=== PATIENT | female | born 1985 | race Caucasian/White ===

== ENCOUNTER 2017-02-01 08:49 | Emergency (ER) | payer MEDICAID ==
[~2017-02-01] VITALS: Ht 157.5 cm; Wt 107.0 kg
[2017-02-01 08:50] VITALS: BP 133/90
[2017-02-01] MEDS ORDERED: ALBU17IN INH (09:23)
[2017-02-01] MEDS ORDERED: CLAR10TA13 PO (09:24)
[2017-02-01] MEDS ORDERED: IBUP80TA PO (09:25)
[2017-02-01] MEDS ORDERED: MUCI600T34 PO (09:25)
== END 2017-02-01 09:45 | disposition home or self-care (01) ==
LOC: M ED 09:33
DX: J06.9 Acute upper respiratory infection, unspecified (principal)

== ENCOUNTER 2017-04-22 21:08 | Emergency (ER) | payer MEDICAID ==
[~2017-04-22] VITALS: Ht 157.5 cm; Wt 104.3 kg
[~2017-04-22 21:08] MED LIST: ALBU17IN INH; CLAR10TA13 PO; IBUP80TA PO; MUCI600T34 PO
[2017-04-22] MEDS ORDERED: KETOROLAC 30 MG/ML VIAL (J1885) IV ONE (22:45)
[2017-04-22 23:43] LABS: BASO # 0.1 K/mm3 (0.0-0.2); BASO % 0.9 % (0.0-1.0); EOS # 0.2 K/mm3 (0.0-0.50); EOS % 1.5 % (0.0-3.0); LARGE UNSTAINED CELL # 0.2 K/mm3 (0.0-0.4); LARGE UNSTAINED CELL % 1.6 % (0.0-4.0); LYMPH % 20.4 % (24.0-44.0); MEAN CORPUSCULAR HEMOGLOBIN 27.7 pg (27.0-33.0); MEAN CORPUSCULAR HGB CONC 33.5 g/dl (32.0-36.5); MEAN CORPUSCULAR VOLUME 82.5 fl (80.0-96.0); MONO # 0.8 K/mm3 (0.0-0.8); MONO % 6.1 % (0.0-5.0); NEUTROPHILS # 9.4 K/mm3 (1.8-7.7); NEUTROPHILS % 69.5 % (36.0-66.0); PLATELET COUNT, AUTOMATED 235 k/mm3 (150-450); RED CELL DISTRIBUTION WIDTH 13.9 % (11.5-14.5); WHITE BLOOD COUNT 13.5 K/mm3 (4.0-10.0)
[2017-04-23 01:03] LABS: CONTROL LINE HCG INT CTR LINE PRESENT
[2017-04-23 01:06] LABS: ANION GAP 7 MEQ/L (8-16); BLOOD UREA NITROGEN 14 MG/DL (7-18); CALCIUM LEVEL 8.7 MG/DL (8.5-10.1); CARBON DIOXIDE LEVEL 28 MEQ/L (21-32); CHLORIDE LEVEL 107 MEQ/L (98-107); CREATININE FOR GFR 0.65 MG/DL (0.55-1.02); GLOMERULAR FILTRATION RATE > 60.0 (>60); GLUCOSE, FASTING 112 MG/DL (70-105); POTASSIUM SERUM 4.4 MEQ/L (3.5-5.1); SODIUM LEVEL 142 MEQ/L (136-145)
[2017-04-23] MEDS ORDERED: ISOVUE-370 76% 100ML VIAL (Q9967) As Ordered ONE (01:30)
--- NOTE | 2017-04-23 02:20 | REPUSA ---
CLINICAL HISTORY: Pain, exclude PE. TECHNIQUE: Multiple incremental axial, coronal and oblique images are obtained from the thoracic inle t to the upper abdomen. Intravenous contrast material was administered as per pulmonary embolism prot ocol. COMMENTS: There is excellent opacification of pulmonary arterial system without evidence for pulmonary embolism . Aorta is of normal caliber without evidence for dissection or aneurysm. There is no evidence of pleural or parenchymal mass. There are no pleural effusions. There is no evid ence of hilar or mediastinal lymphadenopathy. The heart and great vessels are within normal limits. Images of the upper abdomen demonstrate no evidence of adrenal mass. The bony structures are free of lytic or blastic lesions. 8mm left thyroid nodule. Prior cholecystectomy. IMPRESSION: No evidence for pulmonary embolism. Thank you for your kind referral of this patient.
[2017-04-23] MEDS ORDERED: KETO10TAB PO (03:22)
[2017-04-23 03:49] VITALS: BP 126/74
== END 2017-04-23 03:46 | disposition home or self-care (01) ==
LOC: M ED 22:57
DX: M54.6 Pain in thoracic spine (principal); F17.200 Nicotine dependence, unspecified, uncomplicated; Z88.1 Allergy status to other antibiotic agents; Z88.0 Allergy status to penicillin; Z88.8 Allergy status to other drugs, medicaments and biological substances
CPT/HCPCS: 71275; 80048; 84703; 85025; 96374; 99283; J1885; Q9967

== ENCOUNTER 2017-12-02 15:50 | Emergency (ER) | payer MEDICAID ==
[2017-12-02] MEDS: KETOROLAC 60 MG/2 ML VIAL (J1885) IM (17:54)
== END 2017-12-02 18:08 | disposition home or self-care (01) ==
LOC: M ED 15:50
DX: R51 Headache (principal); Z98.890 Other specified postprocedural states; Z88.0 Allergy status to penicillin; Z88.8 Allergy status to other drugs, medicaments and biological substances
CPT/HCPCS: J1885

== ENCOUNTER → 2017-12-15 | Outpatient (CLI) | payer MEDICAID ==
[2017-12-15 10:17] LABS: ANION GAP 7 MEQ/L (8-16); BLOOD UREA NITROGEN 9 MG/DL (7-18); CALCIUM LEVEL 9.4 MG/DL (8.5-10.1); CARBON DIOXIDE LEVEL 29 MEQ/L (21-32); CHLORIDE LEVEL 106 MEQ/L (98-107); CREATININE FOR GFR 0.67 MG/DL (0.55-1.30); GLOMERULAR FILTRATION RATE > 60.0 (>60); GLUCOSE, FASTING 99 MG/DL (70-100); POTASSIUM SERUM 3.9 MEQ/L (3.5-5.1); SODIUM LEVEL 142 MEQ/L (136-145)
[2017-12-16 14:47] LABS: HEPATITIS B SURFACE ANTIBODY NEGATIVE (POSITIVE)
== END ==
LOC: M LAB 09:09
DX: Z00.00 Encounter for general adult medical examination without abnormal findings (principal); R10.9 Unspecified abdominal pain
CPT/HCPCS: 86706

== ENCOUNTER → 2018-01-13 | Outpatient (CLI) | payer MEDICAID ==
[~2018-01-13] MED LIST changes: -ALBU17IN INH; -CLAR10TA13 PO; +GASTROGRAFIN SOLUTION 30ML (Q9963) As Ordered; -IBUP80TA PO; +ISOVUE-370 76% 100ML VIAL (Q9967) As Ordered; -MUCI600T34 PO
== END ==
LOC: M RAD 14:01
DX: R93.5 Abnormal findings on diagnostic imaging of other abdominal regions, including retroperitoneum (principal); K42.9 Umbilical hernia without obstruction or gangrene
CPT/HCPCS: Q9963

== ENCOUNTER → 2018-01-18 | Outpatient (REF) | payer MEDICAID ==
[2018-01-18 12:16] LABS: AMORPHOUS SEDIMENT MODERATE (NEGATIVE); APPEARANCE, URINE CLOUDY (CLEAR); BACTERIA, URINE AUTO 1+ (NEGATIVE); BILIRUBIN, URINE AUTO NEGATIVE (NEGATIVE); BLOOD, URINE BLOOD NEGATIVE (NEGATIVE); COLOR, URINE YELLOW (YELLOW); GLUCOSE, URINE (UA) AUTO NEGATIVE (NEGATIVE); KETONE, URINE AUTO NEGATIVE (NEGATIVE); LEUKOCYTE ESTERASE, URINE AUTO 3+ (NEGATIVE); MUCUS, URINE SMALL (NEGATIVE); NITRITE, URINE AUTO NEGATIVE (NEGATIVE); PROTEIN, URINE AUTO NEGATIVE (NEGATIVE); RBC, URINE AUTO 1 /HPF (0-3); SQUAMOUS EPITHELIAL CELL UR AU 27 /HPF (0-6); TRANSITIONAL EPITHELIAL AUTO 1 /HPF; UROBILINOGEN, URINE AUTO 0.2 mg/dL (0.0-2.0); WBC, URINE AUTO 5 /HPF (0-3)
== END ==
LOC: M LAB REF 11:23
DX: R35.8 Other polyuria (principal)

== ENCOUNTER → 2018-01-25 | Outpatient (CLI) | payer MEDICAID | LOC: M RAD 11:11 | DX: E04.1 Nontoxic single thyroid nodule (principal) | CPT/HCPCS: 76536 ==

== ENCOUNTER 2018-02-07 12:41 | Emergency (ER) | payer MEDICAID ==
[2018-02-07 16:11] LABS: KETONE, URINE AUTO RFX NEGATIVE (NEGATIVE); LEUKOCYTE ESTERASE UR AUTO RFX 1+ (NEGATIVE); MUCUS, URINE RFX LARGE (NEGATIVE); NITRITE, URINE AUTO RFX NEGATIVE (NEGATIVE); RBC, URINE AUTO RFX 3 /HPF (0-3); SPECIFIC GRAVITY UR AUTO RFX 1.024 (1.002-1.035); SQUAM EPITHELIAL CELL UR AURFX 21 /HPF (0-6); WBC, URINE AUTO RFX 23 /HPF (0-3)
[2018-02-07] MEDS: NS 1,000 ML IV (16:32)
[2018-02-07] MEDS: ONDANSETRON 4MG/2ML VIAL (J2405) IV (16:32)
[2018-02-07] MEDS: MORPHINE 4 MG/ML 1ML VIAL (J2270) IV ×2 (16:32→17:20)
[2018-02-07 16:34] LABS: BASO # 0.1 10^3/uL (0.0-0.2); BASO % 0.6 % (0.0-1.0); EOS # 0.1 10^3/uL (0.0-0.50); EOS % 0.7 % (0.0-3.0); HEMATOCRIT 39.2 % (36.0-47.0); HEMOGLOBIN 12.5 g/dl (12.0-16.0); IMMATURE GRANULOCYTE % 0.2 % (0-3.0); LYMPH # 2.3 10^3/uL (1.5-4.5); LYMPH % 24.5 % (24.0-44.0); MEAN CORPUSCULAR HEMOGLOBIN 26.3 pg (27.0-33.0); MEAN CORPUSCULAR HGB CONC 31.9 g/dl (32.0-36.5); MEAN CORPUSCULAR VOLUME 82.5 fl (80.0-96.0); MONO # 0.5 10^3/uL (0.0-0.8); MONO % 5.2 % (0.0-5.0); NEUTROPHILS # 6.6 10^3/uL (1.8-7.7); NEUTROPHILS % 68.8 % (36.0-66.0); PLATELET COUNT, AUTOMATED 281 10^3/uL (150-450); RED BLOOD COUNT 4.75 10^6/uL (4.00-5.40); RED CELL DISTRIBUTION WIDTH 13.2 % (11.5-14.5); WHITE BLOOD COUNT 9.6 10^3/uL (4.0-10.0)
[2018-02-07 17:01] LABS: ALBUMIN 3.8 GM/DL (3.2-5.2); ALBUMIN/GLOBULIN RATIO 1.09 (1.00-1.93); ALKALINE PHOSPHATASE 74 U/L (45-117); ALT/SGPT 23 U/L (12-78); ANION GAP 7 MEQ/L (8-16); AST/SGOT 15 U/L (7-37); BILIRUBIN,DIRECT 0.1 MG/DL (0.0-0.2); BILIRUBIN,TOTAL 0.5 MG/DL (0.2-1.0); BLOOD UREA NITROGEN 8 MG/DL (7-18); CALCIUM LEVEL 8.7 MG/DL (8.5-10.1); CARBON DIOXIDE LEVEL 29 MEQ/L (21-32); CHLORIDE LEVEL 106 MEQ/L (98-107); CREATININE FOR GFR 0.55 MG/DL (0.55-1.30); GLOMERULAR FILTRATION RATE > 60.0 (>60); GLUCOSE, FASTING 83 MG/DL (70-100); LIPASE 109 U/L (73-393); SODIUM LEVEL 142 MEQ/L (136-145); TOTAL PROTEIN 7.3 GM/DL (6.4-8.2)
[2018-02-07] MEDS ORDERED: ISOVUE-370 76% 100ML VIAL (Q9967) As Ordered (17:09)
== END 2018-02-07 18:31 | disposition home or self-care (01) ==
LOC: M ED 12:41
DX: K21.9 Gastro-esophageal reflux disease without esophagitis (principal); K58.9 Irritable bowel syndrome, unspecified; N83.201 Unspecified ovarian cyst, right side; N39.0 Urinary tract infection, site not specified; Z88.0 Allergy status to penicillin; Z87.891 Personal history of nicotine dependence
CPT/HCPCS: J2270

== ENCOUNTER → 2018-02-07 | Outpatient (CLI) | payer MEDICAID ==
[2018-02-07 13:18] LABS: BASO # 0.1 10^3/uL (0.0-0.2); EOS # 0.1 10^3/uL (0.0-0.50); EOS % 1.2 % (0.0-3.0); HEMATOCRIT 39.4 % (36.0-47.0); HEMOGLOBIN 12.6 g/dl (12.0-16.0); IMMATURE GRANULOCYTE % 0.2 % (0-3.0); LYMPH # 2.1 10^3/uL (1.5-4.5); LYMPH % 25.1 % (24.0-44.0); MEAN CORPUSCULAR HEMOGLOBIN 26.3 pg (27.0-33.0); MEAN CORPUSCULAR VOLUME 82.3 fl (80.0-96.0); MONO # 0.5 10^3/uL (0.0-0.8); MONO % 5.7 % (0.0-5.0); NEUTROPHILS # 5.5 10^3/uL (1.8-7.7); NEUTROPHILS % 66.8 % (36.0-66.0); PLATELET COUNT, AUTOMATED 317 10^3/uL (150-450); RED BLOOD COUNT 4.79 10^6/uL (4.00-5.40); RED CELL DISTRIBUTION WIDTH 13.2 % (11.5-14.5); WHITE BLOOD COUNT 8.3 10^3/uL (4.0-10.0)
[2018-02-07 13:39] LABS: ALBUMIN 3.7 GM/DL (3.2-5.2); ALKALINE PHOSPHATASE 77 U/L (45-117); ALT/SGPT 18 U/L (12-78); ANION GAP 7 MEQ/L (8-16); AST/SGOT 17 U/L (7-37); BILIRUBIN,TOTAL 0.4 MG/DL (0.2-1.0); BLOOD UREA NITROGEN 8 MG/DL (7-18); CALCIUM LEVEL 8.9 MG/DL (8.5-10.1); CARBON DIOXIDE LEVEL 29 MEQ/L (21-32); CHLORIDE LEVEL 106 MEQ/L (98-107); CREATININE FOR GFR 0.57 MG/DL (0.55-1.30); GLOMERULAR FILTRATION RATE > 60.0 (>60); GLUCOSE, FASTING 90 MG/DL (70-100); LIPASE 108 U/L (73-393); POTASSIUM SERUM 4.2 MEQ/L (3.5-5.1); SODIUM LEVEL 142 MEQ/L (136-145); TOTAL PROTEIN 7.4 GM/DL (6.4-8.2)
== END ==
LOC: M LAB 12:18
DX: R10.13 Epigastric pain (principal)
CPT/HCPCS: 83690

== ENCOUNTER → 2018-02-15 | Outpatient (REF) | payer MEDICAID ==
[2018-02-20 08:06] LABS: H PYLORI STOOL ANTIGEN Negative (Negative)
== END ==
LOC: M LAB REF 10:30
DX: K58.0 Irritable bowel syndrome with diarrhea (principal)

== ENCOUNTER → 2018-04-27 | Outpatient (CLI) | payer MEDICAID ==
[2018-04-27 12:57] LABS: FREE T4 1.16 NG/DL (0.76-1.46); THYROID STIMULATING HORMONE 0.544 uIU/ML (0.358-3.740)
[2018-04-29 14:10] LABS: TISSUE TRANSGLUTAMINASE IgA <2 U/mL (0-3)
== END ==
LOC: M LAB 11:48
DX: R11.0 Nausea (principal)
CPT/HCPCS: 84443

== ENCOUNTER → 2018-04-28 | Outpatient (CLI) | payer MEDICAID | LOC: M RAD 13:16 | DX: N85.8 Other specified noninflammatory disorders of uterus (principal); R10.2 Pelvic and perineal pain | CPT/HCPCS: 76856 ==

== ENCOUNTER 2018-05-01 08:11 | Day surgery (SDC) | payer MEDICAID ==
[2018-05-01] MEDS ORDERED: NS 1,000 ML IV (09:30)
== END 2018-05-01 11:12 | disposition home or self-care (01) ==
LOC: M OPP 08:11
DX: K58.0 Irritable bowel syndrome with diarrhea (principal); R11.0 Nausea; K21.9 Gastro-esophageal reflux disease without esophagitis; Z79.899 Other long term (current) drug therapy; Z88.8 Allergy status to other drugs, medicaments and biological substances; J30.89 Other allergic rhinitis; Z87.891 Personal history of nicotine dependence; Z83.3 Family history of diabetes mellitus; Z82.49 Family history of ischemic heart disease and other diseases of the circulatory system
CPT/HCPCS: 45378

== ENCOUNTER 2018-06-01 12:36 | Emergency (ER) | payer MEDICAID | END 2018-06-01 15:09 | disposition home or self-care (01) | LOC: M ED 12:36 | DX: B07.0 Plantar wart (principal); Z79.899 Other long term (current) drug therapy; Z88.0 Allergy status to penicillin; Z88.8 Allergy status to other drugs, medicaments and biological substances; Z91.018 Allergy to other foods | CPT/HCPCS: 99283 ==

== ENCOUNTER 2018-06-09 07:16 | Day surgery (SDC) | payer MEDICAID ==
[2018-06-09 07:31] LABS: HEMATOCRIT 38.1 % (36.0-47.0); HEMOGLOBIN 12.4 g/dl (12.0-15.5); MEAN CORPUSCULAR HEMOGLOBIN 25.9 pg (27.0-33.0); MEAN CORPUSCULAR HGB CONC 32.5 g/dl (32.0-36.5); MEAN CORPUSCULAR VOLUME 79.7 fl (80.0-96.0); PLATELET COUNT, AUTOMATED 267 10^3/uL (150-450); RED BLOOD COUNT 4.78 10^6/uL (4.00-5.40); RED CELL DISTRIBUTION WIDTH 13.4 % (11.5-14.5); WHITE BLOOD COUNT 10.4 10^3/uL (4.0-10.0)
[2018-06-09 07:47] LABS: CONTROL LINE HCG INT CTR LINE PRESENT; HCG, SERUM QUALITATIVE NEGATIVE (NEGATIVE)
[2018-06-09] MEDS ORDERED: PROPOFOL 200 MG/20 ML VIAL As Ordered ×2 (08:10)
[2018-06-09] MEDS ORDERED: LIDOCAINE 2% INJ 100 MG/5 ML SDV (FOR ANES.) As Ordered ×2 (08:10)
[2018-06-09] MEDS: BUPIVACAINE HCL 0.25% 30 ML VIAL As Ordered ×2 (08:10)
[2018-06-09] MEDS ORDERED: fentaNYL 250 MCG/5 ML INJECTION (J3010) As Ordered ×2 (08:10)
[2018-06-09] MEDS ORDERED: ROCURONIUM BROMIDE 50 MG/5 ML VIAL As Ordered ×2 (08:10)
[2018-06-09] MEDS: SILVER NITRATE APPLICATOR As Ordered ×2 (08:10)
[2018-06-09] MEDS ORDERED: MIDAZOLAM INJ 2 MG/2 ML VIAL (J2250) As Ordered ×2 (08:11)
[2018-06-09] MEDS: LR 1,000 ML IV ×2 (08:12)
[2018-06-09] MEDS ORDERED: dexameTHASONE 4 MG/ML 1ML VIAL (J1100) As Ordered ×6 (08:46→10:57)
[2018-06-09] MEDS ORDERED: ONDANSETRON 4MG/2ML VIAL (J2405) As Ordered ×2 (09:01)
[2018-06-09] MEDS ORDERED: KETOROLAC 60 MG/2 ML VIAL (J1885) As Ordered ×2 (09:02)
[2018-06-09] MEDS ORDERED: GLYCOPYRROLATE INJ 0.2 MG/ML 2 ML VIAL As Ordered ×2 (09:08)
[2018-06-09] MEDS ORDERED: NEOSTIGMINE 10 MG/10 ML VIAL (J2710) As Ordered ×4 (09:08→09:09)
[2018-06-09] MEDS ORDERED: fentaNYL 100 MCG/2 ML INJECTION (J3010) As Ordered ×4 (10:17→10:27)
[2018-06-09] MEDS: fentaNYL 100 MCG/2 ML INJECTION (J3010) IV ×8 (10:27→10:51)
[2018-06-09] MEDS: PERCOCET 5MG/325MG TAB PO ×4 (10:40→12:13)
[2018-06-09] MEDS ORDERED: ONDANSETRON 4MG/2ML VIAL (J2405) IV ×2 (10:45)
[2018-06-09] MEDS ORDERED: LR 1,000 ML IV ×4 (10:45)
[2018-06-09] MEDS: MORPHINE 10 MG/ML 1ML VIAL (J2270) IV ×10 (11:00→11:20)
[2018-06-09] MEDS ORDERED: PERCOCET 5MG/325MG TAB As Ordered ×2 (12:11)
== END 2018-06-09 14:50 | disposition home or self-care (01) ==
LOC: M SDC 07:16
DX: N83.201 Unspecified ovarian cyst, right side (principal); K21.9 Gastro-esophageal reflux disease without esophagitis; K58.9 Irritable bowel syndrome, unspecified; Z79.899 Other long term (current) drug therapy; Z88.0 Allergy status to penicillin; Z88.8 Allergy status to other drugs, medicaments and biological substances
CPT/HCPCS: 58661

== ENCOUNTER → 2018-08-15 | Outpatient (CLI) | payer MEDICAID ==
[~2018-08-15] MED LIST changes: +E-Z-GAS II EFFERVESCENT PACKET (SODIUM BICARB./CITRIC ACID/SIMETHICONE) As Ordered; +E-Z-HD 98% w/w 340GM SUSP BTL As Ordered; +E-Z-PAQUE 96% w/w SUSP 176GM BTL As Ordered; -GASTROGRAFIN SOLUTION 30ML (Q9963) As Ordered; -ISOVUE-370 76% 100ML VIAL (Q9967) As Ordered
== END ==
LOC: M RAD 16:00
DX: M25.512 Pain in left shoulder (principal)
CPT/HCPCS: 72040

== ENCOUNTER 2018-10-04 21:52 | Emergency (ER) | payer MEDICAID ==
[2018-10-04] MEDS: DERMABOND TOPICAL SKIN ADHESIVE TOP (22:44)
[2018-10-04] MEDS: ADACEL/BOOSTRIX VACCINE (DIPHTH/PERTUSS/ACELL/TETANUS)0.5ML SYR (90715) IM (22:44)
== END 2018-10-04 23:18 | disposition home or self-care (01) ==
LOC: M ED 21:52
DX: S61.210A Laceration without foreign body of right index finger without damage to nail, initial encounter (principal); W26.8XXA Contact with other sharp object(s), not elsewhere classified, initial encounter; Y92.099 Unspecified place in other non-institutional residence as the place of occurrence of the external cause; Y93.G1 Activity, food preparation and clean up; Y99.9 Unspecified external cause status; K21.9 Gastro-esophageal reflux disease without esophagitis; K58.9 Irritable bowel syndrome, unspecified; Z88.0 Allergy status to penicillin; Z91.018 Allergy to other foods
CPT/HCPCS: 90715

== ENCOUNTER 2019-12-18 08:36 | Emergency (ER) | payer MEDICAID ==
[~2019-12-18] VITALS: Ht 157.5 cm; Wt 108.5 kg
[~2019-12-18 08:36] MED LIST changes: +ALBU17IN INH; +CIPR-249 PO; +CLAR1TAB13 PO; +COLA100C5 PO; +DICY20TA11; -E-Z-GAS II EFFERVESCENT PACKET (SODIUM BICARB./CITRIC ACID/SIMETHICONE) As Ordered; -E-Z-HD 98% w/w 340GM SUSP BTL As Ordered; -E-Z-PAQUE 96% w/w SUSP 176GM BTL As Ordered; +HYOS1TAB PO; +IBUP80TA PO; +KETO10TAB PO; +MUCI600T37 PO; +OMEP40CA97 PO; +PERCOCET PO
[2019-12-18] MEDS ORDERED: IBUPROFEN 800 MG TAB PO ONE (09:30)
[2019-12-18 09:33] LABS: INFLUENZA A AMPLIFICATION NEGATIVE (NEGATIVE); INFLUENZA B AMPLIFICATION POSITIVE (NEGATIVE)
[2019-12-18 10:49] VITALS: BP 129/74
== END 2019-12-18 10:52 | disposition home or self-care (01) ==
LOC: M ED 08:36
DX: J10.1 Influenza due to other identified influenza virus with other respiratory manifestations (principal); Z88.0 Allergy status to penicillin; Z88.8 Allergy status to other drugs, medicaments and biological substances; Z91.018 Allergy to other foods

== ENCOUNTER 2020-10-07 15:37 | Emergency (ER) | payer MEDICAID ==
[~2020-10-07] VITALS: Ht 157.5 cm; Wt 102.0 kg
[2020-10-07 15:38] VITALS: BP 152/95
== END 2020-10-07 16:45 | disposition home or self-care (01) ==
LOC: M ED 15:37
DX: Z20.828 Contact with and (suspected) exposure to other viral communicable diseases (principal); K21.9 Gastro-esophageal reflux disease without esophagitis; Z88.0 Allergy status to penicillin; Z88.1 Allergy status to other antibiotic agents; Z88.8 Allergy status to other drugs, medicaments and biological substances; Z91.011 Allergy to milk products
CPT/HCPCS: 99282; U0003

== ENCOUNTER 2021-06-24 18:20 | Emergency (ER) | payer MEDICAID ==
[~2021-06-24] VITALS: Ht 157.5 cm; Wt 99.6 kg
[~2021-06-24 18:20] MED LIST changes: +OMEP40CA4 PO; -OMEP40CA97 PO
[2021-06-24] MEDS ORDERED: LIDOCAINE 5% (LIDODERM) PATCH TD ONE (20:35)
[2021-06-24] MEDS ORDERED: NAPROXEN 250 MG TAB PO ONE (20:35)
[2021-06-24] MEDS ORDERED: methocarbamoL 750 MG TAB PO ONE (20:35)
[2021-06-24] MEDS ORDERED: **NOTE PATIENT COMMENT** MISC XX SCH (21:00)
[2021-06-24] MEDS ORDERED: NABU-71 PO (21:48)
[2021-06-24 21:55] LABS: BASO # 0.1 10^3/uL (0.0-0.2); BASO % 0.9 % (0.0-1.0); EOS # 0.2 10^3/uL (0.0-0.5); EOS % 1.5 % (0.0-3.0); HEMATOCRIT 42.2 % (36.0-47.0); HEMOGLOBIN 13.3 g/dl (12.0-15.5); LYMPH # 2.6 10^3/uL (1.5-5.0); LYMPH % 24.9 % (24.0-44.0); MEAN CORPUSCULAR HEMOGLOBIN 26.3 pg (27.0-33.0); MEAN CORPUSCULAR HGB CONC 31.5 g/dl (32.0-36.5); MEAN CORPUSCULAR VOLUME 83.6 fl (80.0-96.0); MONO # 0.7 10^3/uL (0.0-0.8); NEUTROPHILS # 6.7 10^3/uL (1.5-8.5); NEUTROPHILS % 65.4 % (36.0-66.0); PLATELET COUNT, AUTOMATED 296 10^3/uL (150-450); RED BLOOD COUNT 5.05 10^6/uL (4.00-5.40); WHITE BLOOD COUNT 10.3 10^3/uL (4.0-10.0)
[2021-06-25] MEDS ORDERED: METH-1165 PO (00:33)
[2021-06-25] MEDS ORDERED: ASPE4PAD TOP (00:33)
[2021-06-25] MEDS ORDERED: CIPR-249 PO (00:33)
[2021-06-25] MEDS ORDERED: CIPROFLOXACIN 500MG TABLET PO ONE (00:40)
[2021-06-25 01:09] VITALS: BP 128/72
--- NOTE | 2021-06-25 09:20 | REP ---
INDICATION: R flank pain, Ca oxalate in urine. Repeat dictation. Preliminary report is provided at the time of the exam by kory AREVALO. COMPARISON: Comparison CT study abdomen pelvis February 07, 2018.. TECHNIQUE: Urinary tract sonography. FINDINGS: Scanning at the level of the urinary bladder shows no abnormality. Renal cortical echogenicity pattern is normal bilaterally and contours are smooth. There is no evidence of hydronephrosis, cyst, mass, or calculus in either kidney. The right kidney measures 11.5 x 6.5 x 5.9 cm. Left renal dimensions are 12.0 x 4.6 x 5.7 cm. IMPRESSION: Normal urinary tract sonography. <Electronically signed by Hector Louie > 06/25/21 0916
== END 2021-06-25 01:12 | disposition home or self-care (01) ==
LOC: M ED 18:20
DX: M54.6 Pain in thoracic spine (principal); N39.0 Urinary tract infection, site not specified; K21.9 Gastro-esophageal reflux disease without esophagitis; Z88.0 Allergy status to penicillin; Z88.8 Allergy status to other drugs, medicaments and biological substances; Z91.018 Allergy to other foods; F17.210 Nicotine dependence, cigarettes, uncomplicated

== ENCOUNTER → 2021-08-06 | Outpatient (REF) | payer MEDICAID ==
[~2021-08-06] MED LIST changes: +ASPE4PAD TOP; +METH-1165 PO; +NABU-71 PO
== END ==
LOC: M LAB REF 16:25
PROVIDERS: ATTEND Surgery
DX: L72.11 Pilar cyst (principal)

== ENCOUNTER 2021-09-01 21:34 | Emergency (ER) | payer MEDICAID ==
[~2021-09-01] VITALS: Ht 157.5 cm; Wt 103.3 kg
--- OUTSIDE RECORDS SUMMARY | 2021-09-01 21:39 | CCD ---
Author Organization Unknown Address [address] [place] [address] Phone [phone] Care Team Providers Care Recovery Analyst Name Role Phone [facility] 2 [phone] Allergies Code Code System Name Reaction Severity Status Onset Penicillin v Potassium Active 08/26/2014 Notes: BLUE CHEESE - Reaction: throat c losing Medications Name Status Start Date Stop Date Blue-Emu Lidocaine Patch 4 % topical Active Not available Cipro 500 mg tablet Take 1 tablet every 12 hours by oral route for 7 days. Completed 08/14/2021 fluconazole 150 mg tablet TAKE ONE TABLET BY MOUTH ONCE Completed methocarbamol 750 mg tablet Take 1 tablet 3 times a day by oral route. Completed 08/14/2021 nabumetone 500 mg tablet Take 2 tablets every day by oral route for 21 days. Completed 08/14/2021 Vitamin D3 50 mcg (2,000 unit) capsule Take 1 capsule every day by oral route for 90 days. Active Not available Notes: tylenol and ibuprofen as needed Problems Name Status Onset Date Source Obesity Active 08/26/2014 History Nausea Unknown 08/26/2014 History On Examination - Gallbladder Unknown 08/29/2014 His tory Acquired Absence of Multiple Teeth Active 09/02/2014 History Influenza Vaccine Needed Unknown 10/22/2014 History Abdominal Pain Unknown 10/28/2014 History Non-toxic Uninodular Goiter Active 02/11/2016 Hist ory Procedure by Method Unknown 02/11/[address] Concept Unknown 02/11/2016 History Generalized Anxiety Disorder Active 03/10/2016 His tory Depressive Disorder Active 03/10/2016 History Migraine Active 12/13/2017 History Finding of Body Mass Index Active 12/13/2017 Histo ry Nicotine Dependence Unknown 01/11/2018 History Atypical Squamous Cells of Undetermined Significance on Cervical Papanicolaou Smear Active 01/11/2018 History Myopia Active 01/11/2018 History Clinical Finding Unknown 01/18/2018 History Acute Serous Otitis Media of Bilateral Ears Unknown 05/2018 History Epigastric Pain Unknown 02/07/2018 History Irritable Bowel Syndrome with Diarrhea Active 8 History Cyst of Ovary Unknown 02/10/2018 History Pain of Left Shoulder Joint Unknown 08/15/2018 Hist ory Multiple Skin Tags Active 07/06/2021 Pilar Cyst of Scalp Active 07/06/2021 Low Back Pain Active 07/06/2021 Adult Health Examination Unknown 07/06/2021 Tobacco Dependence Caused by Cigarettes Unknown 07/06/20 21 Procedures Notes: tubal ligation 2011, Cholecystect lew 10/09/14, Biopsy on thyroid nodule, gullbladder (2014), Laproscopic surgery behind uterus (2017) Results Lab Results Date Name Specimen Result Interpretation Description Value Range Status Address 07/27/2021 Iron + TIBC + Ferritin, Serum Blood venous Normal Iron, Total 47 mcg/dL 40-190 mcg/dL Final [facility]: [address] [facility] Blood venous Normal Iron Binding Capacity 41 4 mcg/dL (calc) 250-450 mcg/dL (calc) Final [facility]: [address] [facility] Blood venous Low % Saturation 11 % (calc) 16-4 5 % (calc) Final [facility]: [address] [facility] Blood venous Low Ferritin 15 NG/mL 16-154 NG/m L Final [facility]: [address] [facility] 07/27/2021 Lipid Panel, Serum Blood venous Normal [place] sterol, Total 156 mg/dL <200 mg/dL Final [facility]: [address] [facility] Blood venous Normal HDL Cholesterol 56 mg/dL > or = 50 mg/dL Final [facility]: [address] [facility] Blood venous Normal Triglycerides 67 mg/dL <150 m g/dL Final [facility]: [address] [facility] Blood venous Normal LDL-cholesterol 85 mg/dL (donna c) Final [facility]: [address] [facility] Blood venous Normal Chol/hdlc Ratio 2.8 (calc) <5 .0 (calc) Final [facility]: [address] [facility] Blood venous Normal Non HDL Cholesterol 100 mg/dL (calc) <130 mg/dL (calc) Final [facility]: [address] [facility] 07/27/2021 HIV 1+2 Ab + HIV1 P24 Ag, Quantitative Immunoassay, Serum Normal HIV Ag/Ab, 4TH Gen non-reactive non-reactive Final [facility]: [address] [facility] 07/27/2021 TSH + Free T4, Serum Blood venous Normal Tsh 0.51 m IU/L Final [facility]: [address] [facility] Blood venous Normal T4, Free 1.1 NG/dL 0.8-1.8 NG /dL [facility]: [address] [facility] 07/27/2021 CMP, Serum or Plasma Blood venous High Glucose 105 mg/dL 65-99 mg/dL Final [facility]: [address] [facility] Blood venous Normal Urea Nitrogen (BUN) 19 mg/dL 7-25 mg/dL [facility]: [address] [facility] Blood venous Normal Creatinine 0.65 mg/dL 0.50-1. 10 mg/dL [facility]: [address] [facility] Blood venous Normal eGFR Non-afr. Citizen Of [place] 1 15 mL/min/1.73m2 > or = 60 mL/min/1.73m2 Final [facility]: [address] [facility] Blood venous Normal eGFR 13 3 mL/min/1.73m2 > or = 60 mL/min/1.73m2 Final [facility]: [address] [facility] Blood venous BUN/creatinine Ratio not applicable (calc) 6-22 (calc) Final [facility]: [address] [facility] Blood venous Normal Sodium 139 mmol/L 135-146 mmo l/L Final [facility]: [address] [facility] Blood venous Normal Potassium 4.4 mmol/L 3.5-5.3 mmol/L Final [facility]: [address] [facility] Blood venous Normal Chloride 105 mmol/L 98-110 mm ol/L [facility]: [address] [facility] Blood venous Normal Carbon Dioxide 27 mmol/L 20-3 2 mmol/L [facility]: [address] [facility] Blood venous Normal Calcium 9.2 mg/dL 8.6-10.2 mg /dL [facility]: [address] [facility] Blood venous Normal Protein, Total 6.5 g/dL 6.1-8 .1 g/dL [facility]: [address] [facility] Blood venous Normal Albumin 4.0 g/dL 3.6-5.1 g/dL [facility]: [address] [facility] Blood venous Normal Globulin 2.5 g/dL (calc) 1.9- 3.7 g/dL (calc) [facility]: [address] [facility] Blood venous Normal Albumin/globulin Ratio 1 .6 (calc) 1.0-2.5 (calc) [facility]: [address] [facility] Blood venous Normal Bilirubin, Total 0.3 mg/dL 0. 2-1.2 mg/dL [facility]: [address] [facility] Blood venous Normal Alkaline Phosphatase 60 U/L 3 1-125 U/L [facility]: [address] [facility] Blood venous Normal Ast 14 U/L 10-30 U/L [facility]: [address] [facility] Blood venous Normal Alt 12 U/L 6-29 U/L Final [facility]: [address] [facility] 07/27/2021 Urinalysis Complete, Reflex Culture Urine [place] r tnp [facility]: [address] [facility] 07/27/2021 CBC W/ Auto Diff Blood venous Normal White B lood Cell Count 7.7 thousand/uL 3.8-10.8 thousand/uL [facility]: [address] [facility] Blood venous Normal Red Blood Cell Count 4.8 0 million/uL 3.80-5.10 million/uL [facility] [address] [facility] Blood venous Normal Hemoglobin 12.4 g/dL 11.7-15. 5 g/dL [facility]: [address] [facility] Blood venous Normal Hematocrit 39.4 % 35.0-45.0 % [facility]: [address] [facility] Blood venous Normal Mcv 82.1 fL 80.0-100.0 fL Fi nal [facility]: [address] [facility] Blood venous Low Mch 25.8 pg 27.0-33.0 pg Fin [facility]: [address] [facility] Blood venous Low Mchc 31.5 g/dL 32.0-36.0 g/dL [facility]: [address] [facility] Blood venous Normal Rdw 13.4 % 11.0-15.0 % [facility]: [address] [facility] Blood venous Normal Platelet Count 303 thous and/uL 140-400 thousand/uL [facility]: [address] [facility] Blood venous Normal Mpv 11.3 fL 7.5-12.5 fL Mayra l [facility]: [address] [facility] Blood venous Normal Absolute Neutrophils 526 7 cells/uL 4497-5934 cells/uL [facility]: [address] [facility] Blood venous Normal Absolute Lymphocytes 177 1 cells/uL 850-3900 cells/uL [facility]: [address] [facility] Blood venous Normal Absolute Monocytes 462 c ells/uL 200-950 cells/uL [facility]: [address] [facility] Blood venous Normal Absolute Eosinophils 123 cells/uL 15-500 cells/uL [facility]: [address] [facility] Blood venous Normal Absolute Basophils 77 ce lls/uL 0-200 cells/uL [facility]: [address] [facility] Blood venous Normal Neutrophils 68.4 % 38-80 % Fi [facility]: [address] [facility] Blood venous Normal Lymphocytes 23.0 % 15-49 % [facility]: [address] [facility] Blood venous Normal Monocytes 6.0 % 0-13 % [facility]: [address] [facility] Blood venous Normal Eosinophils 1.6 % 0-8 % Fin [facility]: [address] [facility] Blood venous Normal Basophils 1.0 % 0-2 % [facility]: [address] [facility] 07/27/2021 Vitamin B12 + Folate, Serum or Blood Blood venous Normal Vitamin B12 399 pg/mL 200-1100 pg/mL [facility]: [address], [place] Blood venous Normal Folate, Serum 8.8 NG/mL Final [facility]: [address], [place] 07/27/2021 Vitamin D, 25-Hydroxy, Total, Serum Blood venous Low Vitamin D,25-Oh,total,ia 17 NG/mL 30-100 NG/mL Final [facility]: [address] [place] 07/27/2021 HbA1C (Hemoglobin a1C), Blood Blood venous Normal Hemoglobin a1C 5.0 % of total HGB <5.7 % of total HGB Final [facility]: [address], [place] 06/24/2021 Istat Chem8+ Panel Normal Istat HCT 40.0 % 38. 0-51.0 % [facility]: 0 [facility] Normal Istat Glucose 92 mg/dL 70-105 mg/dL [facility]: 0 [facility] Normal Istat Sodium 145 mEq/L 136-145 mEq/L [facility]: [address] [facility] Normal Istat Potassium 4.1 mEq/L 3.5-5.1 mE q/L [facility]: 0 [facility] Normal Istat Ca++ 5.1 mg/dL 4.5-5.3 mg/dL [facility]: [address] [facility] Normal Istat Chloride 103 mEq/L 98-109 mEq/ L [facility]: [address] [facility] Normal Istat CO2 27.0 mm/L 23.0-27.0 mm/L [facility]: [address] [facility] Normal Istat BUN 13 mg/dL 8-26 mg/dL [facility]: 0 [facility] Normal Istat Creatinine 0.6 mg/dL 0.6-1.3 m g/dL [facility]: [address] [facility] 06/24/2021 CBC W/ Auto Diff High White Blood Count 10.3 10 4.0-10.0 10 [facility]: [address] [facility] Normal Red Blood Count 5.05 10 4.00-5.40 10 [facility]: [address] [facility] Normal Hemoglobin 13.3 g/dL 12.0-15.5 g/dL [facility]: [address] [place] [address] Normal Hematocrit 42.2 % 36.0-47.0 % [facility]: [address] [place] [address] Normal Mean Corpuscular Volume 83.6 fL 80.0 -96.0 fL [facility]: [address] [place] [address] Low Mean Corpuscular Hemoglobin 26.3 pg 27.0-33.0 pg [facility]: [address] [place] [address] Low Mean Corpuscular HGB Conc 31.5 g/dL 32.0-36.5 g/dL [facility]: [address] [place] [address] Normal Red Cell Distribution Width 13.5 % 1 1.5-14.5 % [facility]: [address] [place] [address] Normal Platelet Count, Automated 296 10 150 -450 10 [facility]: 0 [facility] Normal Neutrophils % 65.4 % 36.0-66.0 % [facility]: [address] [facility] Normal Lymph % 24.9 % 24.0-44.0 % [facility]: [address] [facility] Normal [place] % 7.0 % 2.0-8.0 % Final [facility]: [address] [facility] Normal Eos % 1.5 % 0.0-3.0 % [facility]: 0 [facility] Normal Baso % 0.9 % 0.0-1.0 % [facility]: [address] [place] [address] Normal Immature Granulocyte % 0.3 % 0-3.0 % [facility]: [address] [place] [address] Normal Nucleated Red Blood Cell % 0.0 % 0- 0 % [facility]: [address] [place] [address] Normal Neutrophils # 6.7 10 1.5-8.[address] [facility]: [address] [facility] Normal Lymph # 2.6 10 1.5-5.0 10 [facility]: [address] [facility] Normal [place] # 0.7 10 0.0-0.8 10 [facility]: [address] [facility] Normal Eos # 0.2 10 0.0-0.[address] [facility]: [address] [facility] Normal Baso # 0.1 10 0.0-0.2 10 [facility]: [address] [facility] 06/24/2021 UA W/ Reflex to Culture High Appearance, Urine Rfx cloudy clear [facility]: 83 0 [facility] Normal Color, Urine Rfx yellow yellow [facility]: [address] [facility] Normal pH,urine Rfx 5.0 units 5.0-9.0 units [facility]: [address] [facility] Normal Specific [place] Ur Auto Rfx 1.028 1.002-1.035 [facility]: [address] [facility] Normal Protein, Urine Auto Rfx negative mg/ dL negative mg/dL [facility]: [address] [facility] Normal Glucose, Urine (UA) Auto Rfx n egative mg/dL negative mg/dL [facility]: [address] [facility] Normal Ketone, Urine Auto Rfx negative mg/d L negative mg/dL [facility]: [address] [facility] Normal Urobilinogen, Urine Auto Rfx 0.2 mg/ dL 0.0-2.0 mg/dL [facility]: [address] [facility] Normal Bilirubin, Urine Auto Rfx negative n egative [facility]: [address] [facility] Normal Nitrite, Urine Auto Rfx negative neg ative [facility]: [address] [facility] High Leukocyte Esterase Ur Auto Rfx 2+ negative [facility]: [address] [facility] Normal Blood, Urine Blood Rfx negative nega tive [facility]: [address] [facility] High WBC, Urine Auto Rfx 6 /hpf 0-3 /hpf [facility]: [address] [facility] Normal RBC, Urine Auto Rfx 3 /hpf 0-3 /hpf [facility]: [address] [facility] High Bacteria, Urine Auto Rfx 3+ nega tive [facility]: [address] [facility] Normal Squam Epithelial Cell Ur Aurfx 27 /h pf 0-6 /hpf [facility]: [address] [facility] Normal Mucus, Urine Rfx moderate negative F inal [facility]: [address] [facility] Normal Hyaline Cast, Urine Auto Rfx 0 /lpf 0-1 /lpf [facility]: [address] [facility] Normal Calcium Oxalate Crystals Rfx large none [facility]: [address] [facility] 06/24/2021 Culture, Urine URINE,CLEAN CATCH No observation recorded. [facility]: [address] [facility] Past Encounters 08/20/2021 Iron Deficiency; Hyperglycemia; Vitamin D Deficiency Josh Pitts RPA-C: [address] [facility] [address] [place] [phone], Ph. 08/14/2021 Active or Passive Immunization; Low Back Pain; Obesity; Iron Deficiency; Patient Informed - Test Result; Hyperglycemia; Vitamin D Deficiency; Pain of Right Ankle Joint Josh Pitts RPA-C: [address] [facility] [address], [place] [address], Ph. 07/27/2021 Adult Health Examination Umair Beebe MD: [address] [place] [address], Ph. 07/02/2021 Tobacco Dependence Caused by Cigarettes; Low Back Pain; Pilar Cyst of Scalp; Adult Health Examination; Multiple Skin Tags EMRE Barbour-BC: [address] [place] [address], Ph. 04/30/2021 Administration of SARS-CoV-2 Antigen Vaccine Umair Beebe MD: [address] [place] [address], Ph. Social History Tobacco Smoking Status Former Smoker Vaccine List Vaccine Type COVID-19 vaccine, vector-nr, rS-Ad26, PF , 0.5 mL .5 mL influenza, injectable, quadrivalent, pre servative free 10/22/20140.5 mL Tdap .5 mL Plan of Care Patient Instructions physical exam done today. Please continu e medications as prescribed. Please continue healthy diet and physical activities. Please try to limit sugars and carbohydrates in your diet. Please try to maintain adequate intake of water daily. Reminders Provider Appointments None recorded. Lab None recorded. Referral None recorded. Procedures None recorded. Surgeries None recorded. Imaging None recorded. Vitals 08/14/2021 01:00PM NEW PATIENT (12yrs - OLDER) Height Weight BMI Blood Pressure 62 in 227 lbs 16 oz 41.7 kg/m2 134/80 mm[Hg] 07/27/2021 08:30AM NURSE LAB COLLECTION Height 62 in 07/02/2021 01:00PM NEW ACUTE 21 Height Weight BMI Blood Pressure 62 in 224 lbs 2 oz 41 kg/m2 121/86 mm[Hg]
--- OUTSIDE RECORDS SUMMARY | 2021-09-01 21:39 | CCD | Continuity of Care Document ---
Author Author Angie JONES DO Organization Unknown Address [address] [facility], [address] [place] [address] Phone [phone] Care Team Providers Care Silk Winding Machine Operator Name Role Phone Alicia Telles M.D. AUTM [phone] [place] AUTM [phone] AUTM Unavailable Problems Description No Active Problems Social History Type Date Description Comments Sex Unknown Cigarette Use Former ETOH Use Occasionally consumes alcohol ETOH Use Sociable Recreational Drug Use Denies Drug Use Tobacco Use Start: Unknown End: Unknown Patient is a former smoker smoked 1ppd for 20 years Quit 2019 Exercise Type/Frequency Occasional Mild Exercise Allergies, Adverse Reactions, Alerts Active Allergies Criticality Reaction | Severity Comments Date Benadryl Unable to assess criticality Hives 04/12/2018 Amoxicillin Unable to assess criticality Hives 04/12/2018 Dicyclomine Unable to assess criticality bloating, upset stomach | Mild 05/01/2018 Penicillin V Unable to assess criticality Hives 08/06/2021 Blue Cheese Unable to assess criticality Hives, THROAT SWELLING 08/06/2021 Medications Active Medications SIG Qnty Indications Ordering Provide r Date Omeprazole 40mg Capsules DR 1 by mouth every day prn Unknown Immunizations Description No Information Available Vital Signs Date Vital Result Comment 08/06/2021 8:55am BP Systolic 139 mmHg BP Diastolic 89 mmHg Heart Rate 75 /min Body Temperature 98.4 F Height 62 inches 5'2" Weight 227.25 lb BMI (Body Mass Index) 41.6 kg/m2 [place] Body Weight 110 lb Weight 103.081 kg BSA (Body Surface Area) 2.02 m2 06/26/2018 2:16pm BP Systolic 128 mmHg BP Diastolic 88 mmHg Height 62 inches 5'2" Weight 244.00 lb BMI (Body Mass Index) 44.6 kg/m2 [place] Body Weight 110 lb Weight 110.678 kg BSA (Body Surface Area) 2.08 m2 Results Description No Information Available Procedures Description No Information Available Medical Devices Description No Information Available Encounters Description No Information Available Assessments Description No Information Available Plan of Treatment Future Appointment(s):* 08/20/2021 9:00 am - [facility] Functional Status Description No Information Available Mental Status Description No Information Available Referrals Refer to Reason for Referral Status Appt Date Scotty Jones D.O. 2 PILAR CYST, 1 NICKEL SIZE AND 1 SM ALLER THAN A DIME Scheduled 07/30/[address] [place] [id number] [phone]
--- OUTSIDE RECORDS SUMMARY | 2021-09-01 21:39 | CCD ---
Author Organization Unknown Address [address] [place] [address] Phone [phone] Care Team Providers Care Stock Controller Name Role Phone [facility]) 2 [phone] Allergies Code Code System Name Reaction Severity Status Onset Penicillin v Potassium Active 08/26/20 14 Notes: BLUE CHEESE - Reaction: throat c losing Medications Name Status Start Date Stop Date Blue-Emu Lidocaine Patch 4 % topical Active Not available Cipro 500 mg tablet Take 1 tablet every 12 hours by oral route for 7 days. Active Not available fluconazole 150 mg tablet TAKE ONE TABLET BY MOUTH ONCE Active Not avail able methocarbamol 750 mg tablet Take 1 tablet 3 times a day by oral route. Active Not available nabumetone 500 mg tablet Take 2 tablets every day by oral route for 21 days. Active Not available Problems Name Status Onset Date Source Nausea Active 08/26/2014 History General Finding of Observation of Patient Active 2013 History On Examination - Gallbladder Active 08/29/2014 His tory Acquired Absence of Multiple Teeth Active 09/02/2014 History Influenza Vaccine Needed Active 10/22/2014 History Abdominal Pain Active 10/28/2014 History Non-toxic Uninodular Goiter Active 02/11/2016 Hist ory Procedure by Method Active 02/11/[address] Concept Active 02/11/2016 History Generalized Anxiety Disorder Active 03/10/2016 His tory Depressive Disorder Active 03/10/2016 History Migraine Active 12/13/2017 History Finding of Body Mass Index Active 12/13/2017 Histo ry Nicotine Dependence Active 01/11/2018 History Atypical Squamous Cells of Undetermined Significance on Cervical Papanicolaou Smear Active 01/11/2018 History Myopia Active 01/11/2018 History Clinical Finding Active 01/18/2018 History Acute Serous Otitis Media of Bilateral Ears Active 05/2018 History Epigastric Pain Active 02/07/2018 History Irritable Bowel Syndrome with Diarrhea Active 8 History Cyst of Ovary Active 02/10/2018 History Pain of Left Shoulder Joint Active 08/15/2018 Hist ory Multiple Skin Tags Active 07/06/2021 Pilar Cyst of Scalp Active 07/06/2021 Low Back Pain Active 07/06/2021 Adult Health Examination Active 07/06/2021 Tobacco Dependence Caused by Cigarettes Active 07/06/20 21 Procedures Notes: tubal ligation 2011, Cholecystect lew 10/09/14, Biopsy on thyroid nodule, gullbladder (2014), Laproscopic surgery behind uterus (2017) Results Lab Results Date Name Specimen Result Interpretation Description Value Range Status Address 06/24/2021 Istat Chem8+ Panel Normal Istat HCT 40.0 % 38. 0-51.0 % [facility]: [address] [place] [address] Normal Istat Glucose 92 mg/dL 70-105 mg/dL [facility]: [address] [place] [address] Normal Istat Sodium 145 mEq/L 136-145 mEq/L [facility]: [address] [place] [address] Normal Istat Potassium 4.1 mEq/L 3.5-5.1 mE q/L [facility]: 0 [facility] Normal Istat Ca++ 5.1 mg/dL 4.5-5.3 mg/dL [facility]: 0 [facility] Normal Istat Chloride 103 mEq/L 98-109 mEq/ L [facility]: 0 [facility] Normal Istat CO2 27.0 mm/L 23.0-27.0 mm/L [facility]: 0 [facility] Normal Istat BUN 13 mg/dL 8-26 mg/dL [facility]: [address] [place] [address] Normal Istat Creatinine 0.6 mg/dL 0.6-1.3 m g/dL [facility]: 0 [facility] 06/24/2021 CBC W/ Auto Diff High White Blood Count 10.3 10 4.0-10.[address] [facility]: 0 [facility] Normal Red Blood Count 5.05 10 4.00-5.[address] [facility]: 830 [facility] Normal Hemoglobin 13.3 g/dL 12.0-15.5 g/dL [facility]: 830 [facility] Normal Hematocrit 42.2 % 36.0-47.0 % [facility]: 830 [facility] Normal Mean Corpuscular Volume 83.6 fL 80.0 -96.[address] [facility]: [address] [place] [address] Low Mean Corpuscular Hemoglobin 26.3 pg 27.0-33.[address] [facility]: [address] [place] [address] Low Mean Corpuscular HGB Conc 31.5 g/dL 32.0-36.5 g/dL [facility]: [address] [place] [address] Normal Red Cell Distribution Width 13.5 % 1 1.5-14.5 % [facility]: [address] [place] [address] Normal Platelet Count, Automated 296 10 150 -[address] [facility]: 830 [facility] Normal Neutrophils % 65.4 % 36.0-66.0 % [facility]: 830 [facility] Normal Lymph % 24.9 % 24.0-44.0 % [facility]: 830 [facility] Normal [place] % 7.0 % 2.0-8.0 % [facility]: 830 [facility] Normal Eos % 1.5 % 0.0-3.0 % [facility]: 830 [facility] Normal Baso % 0.9 % 0.0-1.0 % [facility]: 0 [facility] Normal Immature Granulocyte % 0.3 % 0-3.0 % [facility]: [address] [place] [address] Normal Nucleated Red Blood Cell % 0.0 % 0- 0 % [facility]: 0 [facility] Normal Neutrophils # 6.7 10 1.5-8.[address] [facility]: 830 [facility] Normal Lymph # 2.6 10 1.5-5.0 10 [facility]: 830 [facility] Normal [place] # 0.7 10 0.0-0.8 10 [facility]: 830 [facility] Normal Eos # 0.2 10 0.0-0.5 10 [facility]: 830 [facility] Normal Baso # 0.1 10 0.0-0.2 10 [facility]: 830 [facility] 06/24/2021 UA W/ Reflex to Culture High Appearance, Urine Rfx cloudy clear [facility]: 83 0 [facility] Normal Color, Urine Rfx yellow yellow [facility]: 830 [facility] Normal pH,urine Rfx 5.0 units 5.0-9.[address] [facility]: 830 [facility] Normal Specific [place] Ur Auto Rfx 1.028 1.002-1.035 [facility]: 830 [facility] Normal Protein, Urine Auto Rfx negative mg/ dL negative mg/dL [facility]: 830 [facility] Normal Glucose, Urine (UA) Auto Rfx n egative mg/dL negative mg/dL [facility]: 830 [facility] Normal Ketone, Urine Auto Rfx negative mg/d L negative mg/dL [facility]: 830 [facility] Normal Urobilinogen, Urine Auto Rfx 0.2 mg/ dL 0.0-2.0 mg/dL [facility]: 830 [facility] Normal Bilirubin, Urine Auto Rfx negative n egative [facility]: 830 [facility] Normal Nitrite, Urine Auto Rfx negative neg ative [facility]: 830 [facility] High Leukocyte Esterase Ur Auto Rfx 2+ negative [facility]: 830 [facility] Normal Blood, Urine Blood Rfx negative nega tive [facility]: 830 [facility] High WBC, Urine Auto Rfx 6 /hpf 0-3 /hpf [facility]: 830 [facility] Normal RBC, Urine Auto Rfx 3 /hpf 0-3 /hpf [facility]: 830 [facility] High Bacteria, Urine Auto Rfx 3+ nega tive [facility]: 830 [facility] Normal Squam Epithelial Cell Ur Aurfx 27 /h pf 0-6 /hpf [facility]: 830 [facility] Normal Mucus, Urine Rfx moderate negative F inal [facility]: 830 [facility] Normal Hyaline Cast, Urine Auto Rfx 0 /lpf 0-1 /lpf [facility]: 830 [facility] Normal Calcium Oxalate Crystals Rfx large none [facility]: 830 [facility] 06/24/2021 Culture, Urine URINE,CLEAN CATCH No observation recorded. [facility]: 830 [facility] Past Encounters 07/27/2021 Adult Health Examination Umair Beebe MD: [address] [place] [phone], Ph. 07/02/2021 Tobacco Dependence Caused by Cigarettes; Low Back Pain; Pilar Cyst of Scalp; Adult Health Examination; Multiple Skin Tags [place] [facility]: [address] [place] [address], Ph. 04/30/2021 SARS-CoV-2 Vaccination Umair Beebe MD: [address] [place] [address], Ph. Social History Tobacco Smoking Status Former Smoker Vaccine List Vaccine Type COVID-19 vaccine, vector-nr, rS-Ad26, PF , 0.5 mL .5 mL influenza, injectable, quadrivalent, pre servative free 10/22/20140.5 mL Plan of Care Patient Instructions physical exam done today. Please continu e medications as prescribed. Please continue healthy diet and physical activities. Please try to limit sugars and carbohydrates in your diet. Please try to maintain adequate intake of water daily. Reminders Provider Appointments None recorded. Lab None recorded. Referral None recorded. Procedures None recorded. Surgeries None recorded. Imaging None recorded. Vitals 07/27/2021 08:30AM NURSE LAB COLLECTION Height 62 in 07/02/2021 01:00PM NEW ACUTE 20 Height Weight BMI Blood Pressure 62 in 224 lbs 2 oz 41 kg/m2 121/86 mm[Hg]
--- OUTSIDE RECORDS SUMMARY | 2021-09-01 21:39 | CCD | Continuity of Care Document ---
Author Author Angie JONES DO Organization Unknown Address [address] [facility], [address] [place] [address] Phone [phone] Care Team Providers Care Corncob Pipe Supervisor Name Role Phone Alicia Telles M.D. AUTM [phone] [place] AUTM [phone] AUTM Unavailable Problems Description No Active Problems Social History Type Date Description Comments Sex Unknown Cigarette Use Former ETOH Use Occasionally consumes alcohol ETOH Use Sociable Recreational Drug Use Denies Drug Use Tobacco Use Start: Unknown End: Unknown Patient is a former smoker smoked 1ppd for 20 years Quit 2019 Exercise Type/Frequency Occasional Mild Exercise Allergies and adverse reactions Active Allergies Criticality Reaction | Severity Comments [...] Available Vital Signs Date Vital Result Comment 08/20/2021 8:53am BP Systolic 130 mmHg BP Diastolic 68 mmHg Body Temperature 98.2 F Height 62 inches 5'2" Weight 226.38 lb BMI (Body Mass Index) 41.4 kg/m2 [place] Body Weight 110 lb Weight 102.684 kg BSA (Body Surface Area) 2.02 m2 08/06/2021 8:55am BP Systolic 139 mmHg BP Diastolic 89 mmHg Heart Rate 75 /min Body Temperature 98.4 F Height 62 inches 5'2" Weight 227.25 lb BMI (Body Mass Index) 41.6 kg/m2 [place] Body Weight 110 lb Weight 103.081 kg BSA (Body Surface Area) 2.02 m2 Results Test Acquired Date Facility Test Result H/L Range Note Laboratory test finding 08/06/2021 [facility] Main Lab [address] [place] [address] [phone] Pathology Request For Service (SEE NOTE) 1 1 FINAL DIAGNOSIS Scalp cyst x 2, excision: Pilar/trichilemmal cyst fragments. One fragment shows foreign body type giant cell reaction to keratin debris and chronic inflammation, consistent with old rupture/trauma. 08/10/2021 - 130 CLINICAL DIAGNOSIS Scalp cyst x 2 08/07/2021 - 1137 GROSS DIAGNOSIS Received in formalin labeled "scalp cyst x 2" are multiple fragments of thick-walled cysts, one mostly intact and the other fragmented. Tumbling Instructor sections are submitted in one. - 08/07/2021 - 1137 Signed Blanca Miller MD 08/10/2021 1337 Procedures Date Code Description Status 08/20/2021 33770 Office/Outpatient Established SF MDM 10-19 Min Completed 08/06/2021 29807 Office/Outpatient New Moderate M DM 45-59 Minutes Completed 08/06/2021 48287 Excise Benign Lesion 1.1-2CM Sca lp/Neck/Hands/Feet/Genitalia Completed 08/06/2021 38468 Excise Benign Lesion .6-1CM Sca lp/Neck/Hands/Feet/Genitalia Completed Medical Devices Description No Information Available Encounters Type Date Location Provider Dx Diagnosis Office Visit 08/20/2021 9:00a [facility] ULISSES Godinez L72.11 Pilar cyst Office Visit 08/06/2021 9:00a [facility] Practice Scotty Jones DO L72.11 Pilar cyst Assessments Date Code Description Provider 08/20/2021 L72.11 Pilar cyst ULISSES Johnson 08/06/2021 L72.11 Pilar cyst Scotty Jones DO Plan of Treatment Future Appointment(s):* 09/03/2021 2:00 pm - Scotty Jones DO at [facility] 08/20/2021 - ULISSES Johnson* L72.11 Pilar cyst Functional Status Description No Information Available Mental Status Description No Information Available Referrals Refer to Reason for Referral Status Appt Date Scotty Jones D.O. 2 PILAR CYST, 1 NICKEL SIZE AND 1 SM ALLER THAN A DIME Scheduled 07/30/[address] [place] [address] [id number] [phone]
--- OUTSIDE RECORDS SUMMARY | 2021-09-01 21:39 | CCD | Continuity of Care Document ---
Author Author Angie WIGGINS [facility] Organization Unknown Address [address] [facility], [address] [place] [address] Phone [phone] Care Team Providers Care College And Career Counselor Name Role Phone Alicia Telles M.D. AUTM [phone] [place] AUTM AUTM Unavailable Problems Description No Active Problems [...] lb BMI (Body Mass Index) 41.4 kg/m2 [place] Body Weight 110 lb Weight 102.684 kg BSA (Body Surface Area) 2.02 m2 08/06/2021 8:55am BP Systolic 139 mmHg BP Diastolic 89 mmHg Heart Rate 75 /min Body Temperature 98.4 F Height 62 inches 5'2" Weight 227.25 lb BMI (Body Mass Index) 41.6 kg/m2 [place] Body Weight 110 lb Weight 103.081 kg BSA (Body Surface Area) 2.02 m2 Results Test Acquired Date Facility Test Result H/L Range Note Laboratory test finding 08/06/2021 [facility] Main Lab 0 [place] [address] [phone] Pathology Request For Service (SEE NOTE) 1 [...] one mostly intact and the other fragmented. Assistant Therapy Aide sections are submitted in one. - 08/07/2021 - 1137 Signed Blanca Miller MD 08/10/2021 1337 Procedures Date Code Description Status 08/20/2021 39417 Office/Outpatient Established SF MDM 10-19 Min Completed 08/06/2021 06876 Excise Benign Lesion 1.1-2CM Sca lp/Neck/Hands/Feet/Genitalia Completed 08/06/2021 22945 Excise Benign Lesion .6-1CM Sca lp/Neck/Hands/Feet/Genitalia Completed Medical Devices Description No Information Available Encounters Type Date Location Provider Dx Diagnosis Office Visit 08/20/2021 9:00a [facility] ULISSES Godinez L72.11 Pilar cyst Assessments Date Code Description Provider 08/20/2021 L72.11 Pilar cyst ULISSES Johnson 08/06/2021 L72.11 Pilar cyst Scotty Jones DO Plan of Treatment Future Appointment(s):* 09/03/2021 2:00 pm - Scotty Jones DO at [facility] 08/20/2021 - ULISSES Johnson* L72.11 Pilar cyst Functional Status Description No Information Available Mental Status Description No Information Available Referrals Refer to Reason for Referral Status Appt Date Scotty Jones D.O. 2 PILAR CYST, 1 NICKEL SIZE AND 1 SM ALLER THAN A DIME Scheduled 07/30/[address] [place] [address] [phone]
--- OUTSIDE RECORDS SUMMARY | 2021-09-01 21:39 | CCD ---
Author Organization Unknown Address [address] [place] [address] Phone [phone] Care Team Providers Care License Distributor Name Role Phone [facility] ([facility]) 2 [phone] Allergies Code Code System Name Reaction Severity [...] Istat HCT 40.0 % 38. 0-51.0 % [facility]: [address] [place] [address] Normal Istat Glucose 92 mg/dL 70-105 mg/dL [facility]: [address] [place] [address] Normal Istat Sodium 145 mEq/L 136-145 mEq/L [facility]: [address] [place] [address] Normal Istat Potassium 4.1 mEq/L 3.5-5.1 mE q/L [facility]: 0 [facility] Normal Istat Ca++ 5.1 mg/dL 4.5-5.3 mg/dL [facility]: 0 [facility] Normal Istat Chloride 103 mEq/L 98-109 mEq/ L [facility]: 0 [facility] Normal Istat CO2 27.0 mm/L 23.0-27.0 mm/L [facility]: 0 [facility] Normal Istat BUN 13 mg/dL 8-26 mg/dL [facility]: [address] [place] [address] Normal Istat Creatinine 0.6 mg/dL 0.6-1.3 m g/dL [facility]: 0 [facility] 06/24/2021 CBC W/ Auto Diff High White Blood Count 10.3 10 4.0-10.0 10 [facility]: 0 [facility] Normal Red Blood Count 5.05 10 4.00-5.40 10 [facility]: 830 [facility] Normal Hemoglobin 13.3 g/dL 12.0-15.5 g/dL [facility]: 8[address] [facility] Normal Hematocrit 42.2 % 36.0-47.0 % [facility]: 8[address] [facility] Normal Mean Corpuscular Volume 83.6 fL 80.0 -96.0 fL [facility]: [address] [place] [address] Low Mean Corpuscular Hemoglobin 26.3 pg 27.0-33.0 pg [facility]: [address] [place] [address] Low Mean Corpuscular HGB Conc 31.5 g/dL 32.0-36.5 g/dL [facility]: [address] [place] [address] Normal Red Cell Distribution Width 13.5 % 1 1.5-14.5 % [facility]: [address] [place] [address] Normal Platelet Count, Automated 296 10 150 -450 10 [facility]: 8[address] [facility] Normal Neutrophils % 65.4 % 36.0-66.0 % [facility]: [address] [facility] Normal Lymph % 24.9 % 24.0-44.0 % [facility]: [address] [facility] Normal [place] % 7.0 % 2.0-8.0 % [facility]: [address] [facility] Normal Eos % 1.5 % 0.0-3.0 % [facility]: [address] [facility] Normal Baso % 0.9 % 0.0-1.0 % [facility]: 0 [facility] Normal Immature Granulocyte % 0.3 % 0-3.0 % [facility]: [address] [place] [address] Normal Nucleated Red Blood Cell % 0.0 % 0- 0 % [facility]: 0 [facility] Normal Neutrophils # 6.7 10 1.5-8.5 10 [facility]: [address] [facility] Normal Lymph # 2.6 10 1.5-5.0 10 [facility]: 8[address] [facility] Normal [place] # 0.7 10 0.0-0.8 10 [facility]: 8[address] [facility] Normal Eos # 0.2 10 0.0-0.5 10 [facility]: 8[address] [facility] Normal Baso # 0.1 10 0.0-0.2 10 [facility]: 8[address] [facility] 06/24/2021 UA W/ Reflex to Culture High Appearance, Urine Rfx cloudy clear [facility]: 83 0 [facility] Normal Color, Urine Rfx yellow yellow [facility]: 8[address] [facility] Normal pH,urine Rfx 5.0 units 5.0-9.0 units [facility]: 8[address] [facility] Normal Specific [place] Ur Auto Rfx 1.028 1.002-1.035 [facility]: 8[address] [facility] Normal Protein, Urine Auto Rfx negative mg/ dL negative mg/dL [facility]: 8[address] [facility] Normal Glucose, Urine (UA) Auto Rfx n egative mg/dL negative mg/dL [facility]: 8[address] [facility] Normal Ketone, Urine Auto Rfx negative mg/d L negative mg/dL [facility]: 8[address] [facility] Normal Urobilinogen, Urine Auto Rfx 0.2 mg/ dL 0.0-2.0 mg/dL [facility]: 8[address] [facility] Normal Bilirubin, Urine Auto Rfx negative n egative [facility]: 8[address] [facility] Normal Nitrite, Urine Auto Rfx negative neg ative [facility]: [address] [facility] High Leukocyte Esterase Ur Auto Rfx 2+ negative [facility]: 8[address] [facility] Normal Blood, Urine Blood Rfx negative nega tive [facility]: [address] [facility] High WBC, Urine Auto Rfx 6 /hpf 0-3 /hpf [facility]: 8[address] [facility] Normal RBC, Urine Auto Rfx 3 /hpf 0-3 /hpf [facility]: 8[address] [facility] High Bacteria, Urine Auto Rfx 3+ nega tive [facility]: 8[address] [facility] Normal Squam Epithelial Cell Ur Aurfx 27 /h pf 0-6 /hpf [facility]: [address] [facility] Normal Mucus, Urine Rfx moderate negative F inal [facility]: [address] [facility] Normal Hyaline Cast, Urine Auto Rfx 0 /lpf 0-1 /lpf [facility]: 8[address] [facility] Normal Calcium Oxalate Crystals Rfx large none [facility]: 8[address] [facility] 06/24/2021 Culture, Urine URINE,CLEAN CATCH No observation recorded. [facility]: [address] [facility] Past Encounters 07/02/2021 Tobacco Dependence Caused by Cigarettes; Low Back Pain; Pilar Cyst of Scalp; Adult Health Examination; Multiple Skin Tags [facility]-: [address] [place] [phone], Ph. 04/30/2021 SARS-CoV-2 Vaccination Umair Beebe MD: [address] [place] [phone], Ph. Social History Tobacco Smoking Status Former [...] Surgeries None recorded. Imaging None recorded. Vitals Height Weight BMI Blood Pressure 62 in 224 lbs 2 oz 41 kg/m2 121/86 mm[Hg]
--- OUTSIDE RECORDS SUMMARY | 2021-09-01 21:40 | CCD ---
Author Author [facility] Organization [facility] Address Unknown Phone Unavailable Care Team Providers Care Assessment Services Manager Name Role Phone Chrissy Beebe MD Unavailable Unavailable Chrissy Beebe MD Unavailable Unavailable Chrissy Beebe MD Unavailable Unavailable Chrissy Beebe MD Unavailable Unavailable Chrissy Beebe MD Unavailable Unavailable Chrissy Beebe MD Unavailable Unavailable Chrissy Beebe MD Unavailable Unavailable Chrissy Beebe MD Unavailable Unavailable Chrissy Beebe MD Unavailable Unavailable Chrissy Beebe MD Unavailable Unavailable Chrissy Beebe MD Unavailable Unavailable Chrissy Beebe MD Unavailable Unavailable Chrissy Beebe MD Unavailable Unavailable Chrissy Beebe MD Unavailable Unavailable Chrissy Beebe MD Unavailable Unavailable Chrissy Bebee MD Unavailable Unavailable Chrissy Beebe MD Unavailable Unavailable Chrissy Beebe MD Unavailable Unavailable Chrissy Beebe MD Unavailable Unavailable Chrissy Beebe MD Unavailable Unavailable Chrissy Beebe MD Unavailable Unavailable Chrissy Beebe MD Unavailable Unavailable Chrissy Beebe MD Unavailable Unavailable Chrissy Beebe MD Unavailable Unavailable Chrissy Beebe MD Unavailable Unavailable Chrissy Beebe MD Unavailable Unavailable Chrissy Beebe MD Unavailable Unavailable Chrissy Beebe MD Unavailable Unavailable Chrissy Beebe MD Unavailable Unavailable Chrissy Beebe MD Unavailable Unavailable Chrissy Beebe MD Unavailable Unavailable Chrissy Beebe MD Unavailable Unavailable Chrissy Beebe MD Unavailable Unavailable Chrissy Beebe MD Unavailable Unavailable Chrissy Beebe MD Unavailable Unavailable Chrissy Beebe MD Unavailable Unavailable Chrissy Beebe MD Unavailable Unavailable Chrissy Beebe MD Unavailable Unavailable Chrissy Beebe MD Unavailable Unavailable Chrissy Beebe MD Unavailable Unavailable Chrissy Beebe MD Unavailable Unavailable Chrissy Beebe MD Unavailable Unavailable Chrissy Beebe MD Unavailable Unavailable Chrissy Beebe MD Unavailable Unavailable Chrissy Beebe MD Unavailable Unavailable Chrissy Beebe MD Unavailable Unavailable Chrissy Beebe MD Unavailable Unavailable Chrissy Beebe MD Unavailable Unavailable Chrissy Beebe MD Unavailable Unavailable Chrissy Beebe MD Unavailable Unavailable Chrissy Beebe MD Unavailable Unavailable Chrissy Beebe MD Unavailable Unavailable Chrissy Beebe MD Unavailable Unavailable Chrissy Beebe MD Unavailable Unavailable Chrissy Beebe MD Unavailable Unavailable Chrissy Beebe MD Unavailable Unavailable Chrissy Beebe MD Unavailable Unavailable Chrissy Beebe MD Unavailable Unavailable Chrissy Beebe MD Unavailable Unavailable Chrissy Beebe MD Unavailable Unavailable Chrissy Beebe MD Unavailable Unavailable Chrissy Beebe MD Unavailable Unavailable Chrissy Beebe MD Unavailable Unavailable Chrissy Beebe MD Unavailable Unavailable Chrissy Beebe MD Unavailable Unavailable Chrissy Beebe MD Unavailable Unavailable Chrissy Beebe MD Unavailable Unavailable Chrissy Beebe MD Unavailable Unavailable Chrissy Beebe MD Unavailable Unavailable Chrissy Beebe MD Unavailable Unavailable Chrissy Beebe MD Unavailable Unavailable Chrissy Beebe MD Unavailable Unavailable Chrissy Beebe MD Unavailable Unavailable Chrissy Beebe MD Unavailable Unavailable Chrissy Beebe MD Unavailable Unavailable Chrissy Beebe MD Unavailable Unavailable Chrissy Beebe MD Unavailable Unavailable Chrissy Beebe MD Unavailable Unavailable Chrissy Beebe MD Unavailable Unavailable Chrissy Beebe MD Unavailable Unavailable Chrissy Beebe MD Unavailable Unavailable Chrissy Beebe MD Unavailable Unavailable Chrissy Beebe MD Unavailable Unavailable Chrissy Beebe MD Unavailable Unavailable Beebe, Chrissy Block MD Unavailable Unavailable Beebe, Chrissy Block MD Unavailable Unavailable Beebe, Chrissy Block MD Unavailable Unavailable Beebe, Chrissy Block MD Unavailable Unavailable Beebe, Chrissy Block MD Unavailable Unavailable Beebe, Chrissy Block MD Unavailable Unavailable Beebe, Chrissy Block MD Unavailable Unavailable Beebe, Chrissy Block MD Unavailable Unavailable Beebe, Chrissy Block MD Unavailable Unavailable WHALEY, CANDELARIO JANETT RPA-C Unavailable Unavailable WHALEY, CANDELARIO JANETT RPA-C Unavailable Unavailable WHALEY, CANDELARIO JANETT RPA-C Unavailable Unavailable WHALEY, CANDELARIO JANETT RPA-C Unavailable Unavailable WHALEY, CANDELARIO JANETT RPA-C Unavailable Unavailable WHALEY, CANDELARIO JANETT RPA-C Unavailable Unavailable WHALEY, CANDELARIO JANETT RPA-C Unavailable Unavailable WHALEY, CANDELARIO JANETT RPA-C Unavailable Unavailable WHALEY, CANDELARIO JANETT RPA-C Unavailable Unavailable WHALEY, CANDELARIO JANETT RPA-C Unavailable Unavailable WHALEY, CANDELARIO JANETT RPA-C Unavailable Unavailable WHALEY, CANDELARIO JANETT RPA-C Unavailable Unavailable WHALEY, CANDELARIO JANETT RPA-C Unavailable Unavailable WHALEY, CANDELARIO JANETT RPA-C Unavailable Unavailable WHALEY, CANDELARIO JANETT RPA-C Unavailable Unavailable WHALEY, CANDELARIO JANETT RPA-C Unavailable Unavailable WHALEY, CANDELARIO JANETT RPA-C Unavailable Unavailable WHALEY, CANDELARIO JANETT RPA-C Unavailable Unavailable WHALEY, CANDELARIO JANETT RPA-C Unavailable Unavailable WHALEY, CANDELARIO JANETT RPA-C Unavailable Unavailable WHALEY, CANDELARIO JANETT RPA-C Unavailable Unavailable WHALEY, CANDELARIO JANETT RPA-C Unavailable Unavailable WHALEY, CANDELARIO JANETT RPA-C Unavailable Unavailable WHALEY, CANDELARIO JANETT RPA-C Unavailable Unavailable WHALEY, CANDELARIO JANETT RPA-C Unavailable Unavailable WHALEY, CANDELARIO JANETT RPA-C Unavailable Unavailable WHALEY, CANDELARIO JANETT RPA-C Unavailable Unavailable WHALEY, CANDELARIO JANETT RPA-C Unavailable Unavailable WHALEY, CANDELARIO JANETT RPA-C Unavailable Unavailable WHALEY, CANDELARIO JANETT RPA-C Unavailable Unavailable WHALEY, CANDELARIO JANETT RPA-C Unavailable Unavailable WHALEY, CANDELARIO JANETT RPA-C Unavailable Unavailable WHALEY, CANDELARIO JANETT RPA-C Unavailable Unavailable WHALEY, CANDELARIO JANETT RPA-C Unavailable Unavailable WHALEY, CANDELARIO JANETT RPA-C Unavailable Unavailable WHALEY, CANDELARIO JANETT RPA-C Unavailable Unavailable WHALEY, CANDELARIO JANETT RPA-C Unavailable Unavailable WHALEY, CANDELARIO JANETT RPA-C Unavailable Unavailable WHALEY, CANDELARIO JANETT RPA-C Unavailable Unavailable WHALEY, CANDELARIO JANETT RPA-C Unavailable Unavailable WHALEY, CANDELARIO JANETT RPA-C Unavailable Unavailable WHALEY, CANDELARIO JANETT RPA-C Unavailable Unavailable WHALEY, CANDELARIO JANETT RPA-C Unavailable Unavailable Gloria, Clari PA Unavailable Unavailable Gloria, Clari PA Unavailable Unavailable Gloria, Clari PA Unavailable Unavailable Gloria, Clari PA Unavailable Unavailable Gloria, Clari PA Unavailable Unavailable Gloria, Clari PA Unavailable Unavailable Gloria, Clari PA Unavailable Unavailable Gloria, Clari PA Unavailable Unavailable Gloria, Clari PA Unavailable Unavailable Gloria, Clari PA Unavailable Unavailable Feola, T Grace PA Unavailable Unavailable Feola, T Grace PA Unavailable Unavailable Feola, T Grace PA Unavailable Unavailable Feola, T Grace PA Unavailable Unavailable Feola, T Grace PA Unavailable Unavailable Feola, T Grace PA Unavailable Unavailable Feola, T Grace PA Unavailable Unavailable Feola, T Grace PA Unavailable Unavailable Feola, T Grace PA Unavailable Unavailable Feola, T Grace PA Unavailable Unavailable Feola, T Grace PA Unavailable Unavailable Feola, T Grace PA Unavailable Unavailable Feola, T Grace PA Unavailable Unavailable Feola, T Grace PA Unavailable Unavailable Feola, T Grace PA Unavailable Unavailable Feola, T Grace PA Unavailable Unavailable Feola, T Grace PA Unavailable Unavailable Feola, T Grace PA Unavailable Unavailable Feola, T Grace PA Unavailable Unavailable Feola, T Grace PA Unavailable Unavailable Feola, T Grace PA Unavailable Unavailable Feola, T Grace PA Unavailable Unavailable Feola, T Grace PA Unavailable Unavailable Feola, T Grace PA Unavailable Unavailable Feola, T Grace PA Unavailable Unavailable Feola, T Grace PA Unavailable Unavailable Feola, T Grace PA Unavailable Unavailable Feola, T Grace PA Unavailable Unavailable Feola, T Grace PA Unavailable Unavailable Feola, T Grace PA Unavailable Unavailable Feola, T Grace PA Unavailable Unavailable Feola, T Grace PA Unavailable Unavailable Feola, T Grace PA Unavailable Unavailable Feola, T Grace PA Unavailable Unavailable Feola, T Grace PA Unavailable Unavailable Feola, T Grace PA Unavailable Unavailable Feola, T Grace PA Unavailable Unavailable Feola, T Grace PA Unavailable Unavailable Feola, T Grace PA Unavailable Unavailable Feola, T Grace PA Unavailable Unavailable Feola, T Grace PA Unavailable Unavailable Quinn, A [place] HEALTH INFORMATICS SPECIALIST Unavailable Unavailable Quinn, A [place] HEALTH INFORMATICS SPECIALIST Unavailable Unavailable Quinn, A [place] HEALTH INFORMATICS SPECIALIST Unavailable Unavailable Scandia, A [place] HEALTH INFORMATICS SPECIALIST Unavailable Unavailable Scandia, A [place] HEALTH INFORMATICS SPECIALIST Unavailable Unavailable Scandia, A [place] HEALTH INFORMATICS SPECIALIST Unavailable Unavailable Scandia, A [place] HEALTH INFORMATICS SPECIALIST Unavailable Unavailable Scandia, A [place] HEALTH INFORMATICS SPECIALIST Unavailable Unavailable Scandia, A Spring HEALTH INFORMATICS SPECIALIST Unavailable Unavailable Scandia, A Spring HEALTH INFORMATICS SPECIALIST Unavailable Unavailable Scandia, A Spring HEALTH INFORMATICS SPECIALIST Unavailable Unavailable Scandia, A Spring HEALTH INFORMATICS SPECIALIST Unavailable Unavailable Scandia, A Spring HEALTH INFORMATICS SPECIALIST Unavailable Unavailable Scandia, A Spring HEALTH INFORMATICS SPECIALIST Unavailable Unavailable Scandia, A Spring HEALTH INFORMATICS SPECIALIST Unavailable Unavailable Scandia, A Spring HEALTH INFORMATICS SPECIALIST Unavailable Unavailable Scandia, A Spring HEALTH INFORMATICS SPECIALIST Unavailable Unavailable Scandia, A Spring HEALTH INFORMATICS SPECIALIST Unavailable Unavailable Scandia, A Spring HEALTH INFORMATICS SPECIALIST Unavailable Unavailable Scandia, A Spring HEALTH INFORMATICS SPECIALIST Unavailable Unavailable Scandia, A Spring HEALTH INFORMATICS SPECIALIST Unavailable Unavailable Scandia, A Spring HEALTH INFORMATICS SPECIALIST Unavailable Unavailable Scandia, A Spring HEALTH INFORMATICS SPECIALIST Unavailable Unavailable Scandia, A [place] HEALTH INFORMATICS SPECIALIST Unavailable Unavailable Scandia, A [place] HEALTH INFORMATICS SPECIALIST Unavailable Unavailable Scandia, A Spring HEALTH INFORMATICS SPECIALIST Unavailable Unavailable Scandia, A [place] HEALTH INFORMATICS SPECIALIST Unavailable Unavailable Scandia, A [place] HEALTH INFORMATICS SPECIALIST Unavailable Unavailable Scandia, A [place] HEALTH INFORMATICS SPECIALIST Unavailable Unavailable Scandia, A [place] HEALTH INFORMATICS SPECIALIST Unavailable Unavailable Scandia, A [place] HEALTH INFORMATICS SPECIALIST Unavailable Unavailable BRYDEN, A ANTONINA DO Unavailable Unavailable BRYDEN, A ANTONINA DO Unavailable Unavailable BRYDEN, A ANTONINA DO Unavailable Unavailable BRYDEN, A ANTONINA DO Unavailable Unavailable BRYDEN, A ANTONINA DO Unavailable Unavailable BRYDEN, A ANTONINA DO Unavailable Unavailable BRYDEN, A ANTONINA DO Unavailable Unavailable BRYDEN, A ANTONINA DO Unavailable Unavailable BRYDEN, A ANTONINA DO Unavailable Unavailable BRYDEN, A ANTONINA DO Unavailable Unavailable BRYDEN, A ANTONINA DO Unavailable Unavailable BRYDEN, A ANTONINA DO Unavailable Unavailable BRYDEN, A ANTONINA DO Unavailable Unavailable BRYDEN, A ANTONINA DO Unavailable Unavailable BRYDEN, A ANTONINA DO Unavailable Unavailable BRYDEN, A ANTONINA DO Unavailable Unavailable BRYDEN, A ANTONINA DO Unavailable Unavailable BRYDEN, A ANTONINA DO Unavailable Unavailable BRYDEN, A ANTONINA DO Unavailable Unavailable BRYDEN, A ANTONINA DO Unavailable Unavailable BRYDEN, A ANTONINA DO Unavailable Unavailable BRYDEN, A ANTONINA DO Unavailable Unavailable BRYDEN, A ANTONINA DO Unavailable Unavailable BRYDEN, A ANTONINA DO Unavailable Unavailable BRYDEN, A ANTONINA DO Unavailable Unavailable BRYDEN, A ANTONINA DO Unavailable Unavailable BRYDEN, A ANTONINA DO Unavailable Unavailable BRYDEN, A ANTONINA DO Unavailable Unavailable BRYDEN, A ANTONINA DO Unavailable Unavailable SANFORD, G EDWARD RPA Unavailable Unavailable SANFORD, G EDWARD RPA Unavailable Unavailable SANFORD, G EDWARD RPA Unavailable Unavailable SANFORD, G EDWARD RPA Unavailable Unavailable SANFORD, G EDWARD RPA Unavailable Unavailable SANFORD, G EDWARD RPA Unavailable Unavailable SANFORD, G EDWARD RPA Unavailable Unavailable SANFORD, G EDWARD RPA Unavailable Unavailable SANFORD, G EDWARD RPA Unavailable Unavailable SANFORD, G EDWARD RPA Unavailable Unavailable SANFORD, G EDWARD RPA Unavailable Unavailable SANFORD, G EDWARD RPA Unavailable Unavailable SANFORD, G EDWARD RPA Unavailable Unavailable SANFORD, G EDWARD RPA Unavailable Unavailable SANFORD, G EDWARD RPA Unavailable Unavailable SANFORD, G EDWARD RPA Unavailable Unavailable SANFORD, G EDWARD RPA Unavailable Unavailable SANFORD, G EDWARD RPA Unavailable Unavailable SANFORD, G EDWARD RPA Unavailable Unavailable SANFORD, G EDWARD RPA Unavailable Unavailable SANFORD, G EDWARD RPA Unavailable Unavailable SANFORD, G EDWARD RPA Unavailable Unavailable SANFORD, G EDWARD RPA Unavailable Unavailable SANFORD, G EDWARD RPA Unavailable Unavailable SANFORD, G EDWARD RPA Unavailable Unavailable SANFORD, G EDWARD RPA Unavailable Unavailable SANFORD, G EDWARD RPA Unavailable Unavailable SANFORD, G EDWARD RPA Unavailable Unavailable SANFORD, G EDWARD RPA Unavailable Unavailable SANFORD, G EDWARD RPA Unavailable Unavailable SANFORD, G EDWARD RPA Unavailable Unavailable SANFORD, G EDWARD RPA Unavailable Unavailable SANFORD, G EDWARD RPA Unavailable Unavailable SANFORD, G EDWARD RPA Unavailable Unavailable SANFORD, G EDWARD RPA Unavailable Unavailable Dailey, L Lidia RPA Unavailable Unavailable Dailey, L Lidia RPA Unavailable Unavailable Dailey, L Lidia RPA Unavailable Unavailable Dailey, L Lidia RPA Unavailable Unavailable Dailey, L Lidia RPA Unavailable Unavailable Dailey, L Lidia RPA Unavailable Unavailable Dailey, L Lidia RPA Unavailable Unavailable Dailey, L Lidia RPA Unavailable Unavailable Dailey, L Lidia RPA Unavailable Unavailable Dailey, L Lidia RPA Unavailable Unavailable Dailey, L Lidia RPA Unavailable Unavailable Dailey, L Lidia RPA Unavailable Unavailable Dailey, L Lidia RPA Unavailable Unavailable Dailey, L Lidia RPA Unavailable Unavailable Dailey, L Lidia RPA Unavailable Unavailable Dailey, L Lidia RPA Unavailable Unavailable Dailey, L Lidia RPA Unavailable Unavailable Dailey, L Lidia RPA Unavailable Unavailable Dailey, L Lidia RPA Unavailable Unavailable Dailey, L Lidia RPA Unavailable Unavailable Dailey, L Lidia RPA Unavailable Unavailable Dailey, L Lidia RPA Unavailable Unavailable Dailey, L Lidia RPA Unavailable Unavailable Dailey, L Lidia RPA Unavailable Unavailable Dailey, L Lidia RPA Unavailable Unavailable Dailey, L Lidia RPA Unavailable Unavailable Dailey, L Lidia RPA Unavailable Unavailable Dailey, L Lidia RPA Unavailable Unavailable Dailey, L Lidia RPA Unavailable Unavailable Dailey, L Lidia RPA Unavailable Unavailable Dailey, L Lidia RPA Unavailable Unavailable Dailey, L Lidia RPA Unavailable Unavailable Re-disclosure Warning The records that you are about to access may contain information from federally-assisted alcohol or drug abuse programs. If such information is present, then the following federally mandated warning applies: This information has been disclosed to you from records protected by federal confidentiality rules (42 CFR part 2). The federal rules prohibit you from making any further disclosure of this information unless further disclosure is expressly permitted by the written consent of the person to whom it pertains or as otherwise permitted by 42 CFR part 2. A general authorization for the release of medical or other information is NOT sufficient for this purpose. The Federal rules restrict any use of the information to criminally investigate or prosecute any alcohol or drug abuse patient.The records that you are about to access may contain highly sensitive health information, the redisclosure of which is protected by Article 27-F of the [facility] Public Health law. If you continue you may have access to information: Regarding HIV / AIDS; Provided by facilities licensed or operated by the [facility] Office of Mental Health; or Provided by the [facility] Office for People With Developmental Disabilities. If such information is present, then the following [facility] mandated warning applies: This information has been disclosed to you from confidential records which are protected by state law. State law prohibits you from making any further disclosure of this information without the specific written consent of the person to whom it pertains, or as otherwise permitted by law. Any unauthorized further disclosure in violation of state law may result in a fine or nursing home sentence or both. A general authorization for the release of medical or other information is NOT sufficient authorization for further disc losure. Family History Family Member Name Family Member Gender Family Member Status Date o f Status Description Data Source(s) Unknown Unknown Problem [facility] ([facility], ) Unknown Female Problem [facility] ([facility] ) Encounters Encounter Providers Location Date Indications Data Source(s ) Outpatient Attender: Lidia Haq/[place]ie/R eindl 08/20/2021 09:00:00 AM EDT [facility] ([facility] ) RACHAEL AndresC: [address] , [address], [place] [address], Ph. Attender: JANETT SILVA [facility] 08/20/2021 12:00:00 AM EDT [facility] ([facility]) RACHAEL AndresC: [address] , [address], [place] [address], Ph. Attender: JANETT SILVA [facility] 08/14/2021 12:00:00 AM EDT [facility] ([facility]) Outpatient Attender: ANTONINA Espinoza/[place]/Willie/Quang ndl 08/06/2021 09:00:00 AM EDT [facility] ([facility], ) Umair Beebe MD: [address] [place] [address], Ph. Attender: Umair Beebe MD [facility] 07/27/2021 12:00:00 AM EDT [facility] ([facility]) Umair Beebe MD: [address] [place] [address], Ph. Attender: Umair Beebe MD [facility] 07/27/2021 12:00:00 AM EDT [facility] ([facility]) [facility]: [address] [place] [address], Ph. Attender: Spring Ball [facility] 07/02/2021 12:00:00 AM EDT [facility] ([facility]) [facility]: [address] [place] [address], Ph. Attender: Spring Ball [facility] 07/02/2021 12:00:00 AM EDT [place] ([facility]) Spring [facility]: [address] [place] [address], Ph. Attender: Spring Ball [facility] 07/02/2021 12:00:00 AM EDT [facility] ([facility]) Outpatient Attender: Grace GTZ 021 06:09:15 PM EDT - 06/23/2021 07:10:24 PM EDT [facility] ([facility] ) Outpatient Attender: NOLVIA SANFORD RPA 06/21 12:26:08 PM EDT - 06/21/2021 01:35:48 PM EDT [facility] ([facility] ) Umair Beebe MD: [address] [place] [address], Ph. Attender: Umair Beebe MD [facility] 04/30/2021 12:00:00 AM EDT [facility] ([facility]) Umair Beebe MD: [address] [place] [address], Ph. Attender: Umair Beebe MD [facility] 04/30/2021 12:00:00 AM EDT [place] ([facility]) Umair Beebe MD: [address] [place] [address], Ph. Attender: Umair Beebe MD [facility] 04/30/2021 12:00:00 AM EDT [place] ([facility]) Umair Beebe MD: [address] [place] [address], Ph. Attender: Umair Beebe MD [facility] 04/30/2021 12:00:00 AM EDT [place] ([facility]) Outpatient Attender: Clari Castro PA 0 02/09/2021 07:10:53 PM EDT - 02/09/2021 07:23:28 PM EDT [facility] ([facility]) Immunizations Vaccine Date Status Description Data Source(s) Tdap 08/14/2021 01:45:00 PM EDT completed 08/14/2021 0.5 mL [facility]) COVID-19 vaccine, vector-nr, rS-Ad26, PF, 0.5 mL 04/30/2021 06:21:26 PM EDT completed .5 mL [facility]) COVID-19 vaccine, vector-nr, rS-Ad26, PF, 0.5 mL 04/30/2021 06:21:26 PM EDT completed .5 mL [facility]) COVID-19 vaccine, vector-nr, rS-Ad26, PF, 0.5 mL 04/30/2021 06:21:26 PM EDT completed .5 mL [facility]) COVID-19 vaccine, vector-nr, rS-Ad26, PF, 0.5 mL 04/30/2021 06:21:26 PM EDT completed .5 mL [facility]) COVID-19 VACCINE Justina 04/30/2021 12:00:00 AM EDT completed [facility] Vaccine Series Complete: YESThis Data wa s Submitted to [facility] Via [facility]. Medications Medication Brand Name Start Date Product Form Dose Route Admi nistrative Instructions Pharmacy Instructions Status Indications Reaction Description Data Source(s) 750 mg 06/25/2021 12:00:00 AM EDT tablet 15 TAKE ONE TABLET BY MOUTH THREE TIMES A DAY TAKE ONE TABLET BY MOUTH THREE TIMES A DAY SOLD: 06/25/2021 [facility] Ciprofloxacin 500 MG Oral Tablet CIPROFLOXACIN HCL 06/25/2021 12 :00:00 AM EDT tablet 14 TAKE ONE TABLET BY MOUTH TWICE A DAY TAKE ONE TABLET BY MOUTH TWICE A DAY SOLD: 06/25/2021 [facility] 4 % 06/25/2021 12:00:00 AM EDT adhesive patch,medicate d 10 APPLY ONE PATCH TOPICALLY EVERY DAY APPLY ONE PATCH TOPICALLY EVERY DAY SOLD: 06/25/2021 [facility] 150 mg 06/23/2021 12:00:00 AM EDT tablet 1 TAKE ONE TABLET BY MOUTH ONCE TAKE ONE TABLET BY MOUTH ONCE SOLD: 06/25/2021 [facility] 500 mg 06/21/2021 12:00:00 AM EDT tablet 42 TAKE TWO TABLETS BY MOUTH EVERY DAY FOR 21 DAYS TAKE TWO TABLETS BY MOUTH EVERY DAY FOR 21 DAYS SOLD: 06/21/2021 [facility] Methocarbamol 750 MG Oral Tablet methoca rbamol 750 mg tablet Take 1 tablet 3 times a day by oral route. methocarbamol 750 mg tablet Take 1 table t 3 times a day by oral route. 1 completed met hocarbamol 750 MG Oral Tablet [facility] ([facility]) Fluconazole 150 MG Oral Tablet fluconazo le 150 mg tablet TAKE ONE TABLET BY MOUTH ONCE fluconazole 150 mg tablet TAKE ONE TABLET BY MOUTH ONCE completed fluconazole 150 MG Oral Tablet [place] ([facility]) nabumetone 500 MG Oral Tablet nabumetone 500 mg tablet Take 2 tablets every day by oral route for 21 days. nabumetone 500 mg tablet Take 2 tablets every day by oral route for 21 days. 2 completed nabumetone 500 MG Oral Tablet [facility] ([facility]) Ciprofloxacin 500 MG Oral Tablet [Cipro] Cipro 500 mg tablet Take 1 tablet every 12 hours by oral route for 7 days. Cipro 500 mg tablet Take 1 tablet every 12 hours by oral route for 7 days. 1 comple kelsey ciprofloxacin 500 MG Oral Tablet [Cipro] [facility] ([facility]) Insurance Providers Payer name Policy type / Coverage type Policy ID Covered libertarian ID Covered libertarian's relationship to braden Policy Braden Plan Information Medicaid P [id number] S [id number] Medicaid P [id number] S [id number] MEDICAID [id number] SP [id number] Medicaid P [id number] S [id number] Medicaid P [id number] S [id number] [place] [id number] SP [id number] MEDICA[place] [id number] SP [id number] [place] [id number] SP [id number] M [id number] Medicaid Medicaid [id number] Self [id number] [place] [id number] Self [id number] [place] [id number] [place] [id number] SP [id number] [place] [id number] [place] O [id number] P [id number] UNITED [employer] [id number] SP [id number] PGBA [facility] [id number] MEDICAID M [id number] S [id number] [place] Medicaid [id number] Self [id number] [place]ICAID [id number] Medicaid [place] [id number] Self [id number] Medicaid [place] Medicaid [id number] Self [id number] Medicaid [place] [id number] Self [id number] [place] [id number] Self [id number] [place] [id number] Self [id number] [place] [id number] Self [id number] Problems, Conditions, and Diagnoses Code Display Name Description Problem Type Effective Dates Data Source(s) [id number] Tobacco dependence caused by cigarettes Tobacco Dependence Caused by Cigarettes Problem 07/06/2021 12:00:00 AM EDT - 08/14/2021 12:00:00 AM EDT [place] ([facility]) [id number] Adult health examination Adult Health Examination Prob steve 07/06/2021 12:00:00 AM EDT - 08/14/2021 12:00:00 AM EDT [place] ([facility]) [id number] Low back pain Low Back Pain Problem 07/06/2021 12:00:00 AM EDT [place] ([facility]) [id number] Pilar cyst of scalp Pilar Cyst of Scalp Problem 0 07/06/2021 12:00:00 AM EDT [place] ([facility]) [id number] Multiple skin tags Multiple Skin Tags Problem 12:00:00 AM EDT [place] ([facility]) [id number] Tobacco dependence caused by cigarettes Tobacco Dependence Caused by Cigarettes Problem 07/06/2021 12:00:00 AM EDT [place] ([facility]) [id number] Adult health examination Adult Health Examination Prob steve 07/06/2021 12:00:00 AM EDT [place] ([facility]) [id number] Low back pain Low Back Pain Problem 07/06/2021 12:00:00 AM EDT [place] ([facility]) [id number] Pilar cyst of scalp Pilar Cyst of Scalp Problem 0 07/06/2021 12:00:00 AM EDT [place] ([facility]) [id number] Multiple skin tags Multiple Skin Tags Problem 12:00:00 AM EDT [place] ([facility]) [id number] Tobacco dependence caused by cigarettes Tobacco Dependence Caused by Cigarettes Problem 07/06/2021 12:00:00 AM EDT [place] ([facility]) [id number] Adult health examination Adult Health Examination Prob steve 07/06/2021 12:00:00 AM EDT [place] ([facility]) [id number] Low back pain Low Back Pain Problem 07/06/2021 12:00:00 AM EDT [place] ([facility]) [id number] Pilar cyst of scalp Pilar Cyst of Scalp Problem 0 07/06/2021 12:00:00 AM EDT [place] ([facility]) [id number] Multiple skin tags Multiple Skin Tags Problem 12:00:00 AM EDT [place] ([facility]) [id number] Pain of left shoulder joint Pain of Left Shoul sudhakar Joint Problem 08/15/2018 12:00:00 AM EDT - 08/14/2021 12:00:00 AM ED T [place] ([facility]) 45929057 Cyst of ovary Cyst of Ovary Problem 02/10/2018 12 :00:00 AM EDT - 08/14/2021 12:00:00 AM EDT [place] ([facility]) [id number] Epigastric pain Epigastric Pain Problem 8 12:00:00 AM EDT - 08/14/2021 12:00:00 AM EDT [place] ([facility]) [id number] Acute serous otitis media of bilateral e ars Acute Serous Otitis Media of Bilateral Ears Problem 01/18/2018 12:00:00 AM EST - 08/14/2021 12:00:00 AM EDT [place] ([facility]) [id number] Clinical finding Clinical Finding Problem 018 12:00:00 AM EST - 08/14/2021 12:00:00 AM EDT [place] ([facility]) [id number] Nicotine dependence Nicotine Dependence Problem 0 01/11/2018 12:00:00 AM EST - 08/14/2021 12:00:00 AM EDT [place] ([facility]) 484075907 SNOMED CT Concept SNOMED CT Concept Problem 02/10 12:00:00 AM EDT - 08/14/2021 12:00:00 AM EDT [place] ([facility]) [id number] Procedure by method Procedure by Method Problem 0 02/11/2016 12:00:00 AM EDT - 08/14/2021 12:00:00 AM EDT [place] ([facility]) [id number] Abdominal pain Abdominal Pain Problem 10/28/2014 12:00:00 AM EST - 08/14/2021 12:00:00 AM EDT [place] ([facility]) [id number] Influenza vaccine needed Influenza Vaccine Needed Pro blem 10/22/2014 12:00:00 AM EST - 08/14/2021 12:00:00 AM EDT [place] ([facility]) [id number] On examination - gallbladder On Examination - Gallblad sudhakar Problem 08/29/2014 12:00:00 AM EDT - 08/14/2021 12:00:00 AM EDT [place] ([facility]) [id number] Nausea Nausea Problem 08/26/2014 12:0 0:00 AM EDT - 08/14/2021 12:00:00 AM EDT [place] ([facility]) Surgeries/Procedures Procedure Description Date Indications Data Source(s) OFFICE OUTPATIENT VISIT 10 MINUTES 08/20/2021 12:00:00 AM EDT [place] ([facility], ) Excise Benign Lesion .6-1CM Scalp/Neck/Hands/Feet/Genitalia 08/06/2021 12:00:00 AM EDT [place] ([facility] ) Excise Benign Lesion 1.1-2CM Scalp/Neck/Hands/Feet/Genitalia 08/06/2021 12:00:00 AM EDT [place] ([facility], ) OFFICE OUTPATIENT NEW 45 MINUTES 08/06/2021 12:00:00 A M EDT [place] ([facility], ) Results ID Date Data Source [id number] 08/06/2021 09:42:00 AM [facility] Name Value Range Interpretation Code Description Data Jeannette rce(s) Supporting Document(s) Surgical pathology study Laboratory test result [facility] ([facility], ) FINAL DIAGNOSIS Scalp cyst x 2, excision: Pilar/trichilemmal cyst fragments. One fragment shows foreign body type giant cell reaction to keratin debris and chronic inflammation, consistent with old rupture/trauma. 08/10/2021 - 1301 CLINICAL DIAGNOSIS Scalp cyst x 2 08/07/2021 - 1137 GROSS DIAGNOSIS Received in formalin labeled "scalp cyst x 2" are multiple fragments of thick-walled cysts, one mostly intact and the other fragmented. [employer] Adminstrator sections are submitted in one. JOHNY 08/07/20211137 Signed Blanca Miller MD 08/10/2021 1337 ID Date Data Source [id number] 07/27/2021 10:15:00 AM EDT [facility]) Name Value Range Interpretation Code Description Data Jeannette rce(s) Supporting Document(s) Hemoglobin A1c/Hemoglobin.total in Blood 5.0 %_of_total_HGB <5.7 Hemoglobin a1C [facility]) ID Date Data Source [id number] 07/27/2021 10:15:00 AM EDT [facility]) Name Value Range Interpretation Code Description Data Jeannette rce(s) Supporting Document(s) Calcidiol [Mass/volume] in Serum or Plasma 17 NG/mL 30-100 Below low normal Vitamin D,25-Oh,total,ia [facility]) ID Date Data Source [id number] 07/27/2021 10:15:00 AM EDT [facility]) Name Value Range Interpretation Code Description Data Jeannette rce(s) Supporting Document(s) Folate [Mass/volume] in Serum or Plasma 8.8 NG/mL Folate, Serum [facility]) Cobalamin (Vitamin B12) [Mass/volume] in Serum or Plasma 399 pg/mL 200-1100 Vitamin B12 [place] ([facility]) ID Date Data Source [id number] 07/27/2021 10:15:00 AM EDT [place] ([facility]) Name Value Range Interpretation Code Description Data Jeannette rce(s) Supporting Document(s) Leukocytes [#/volume] in Blood by Automated count 7.7 thousand/uL 3 .8-10.8 White Blood Cell Count [place] ([facility]) Hematocrit [Volume Fraction] of Blood by Automated count 39.4 % 35.0-45.0 Hematocrit [place] ([facility]) Erythrocytes [#/volume] in Blood by Automated count 4.80 million/uL 3.80-5.10 Red Blood Cell Count [place] ([facility]) Hemoglobin [Mass/volume] in Blood 12.4 g/dL 11.7-15.5 He moglobin [place] ([facility]) Erythrocyte mean corpuscular hemoglobin [Entitic mass] by Automated count 25.8 pg 27.0-33.0 Below low normal Mch [place] ([facility]) Erythrocyte mean corpuscular hemoglobin concentration [Mass/volume] by Automated count 31.5 g/dL 32.0-36.0 Below low normal Mchc [place] ([facility]) Erythrocyte mean corpuscular volume [Entitic volume] by Auto mated count 82.1 fL 80.0-100.0 Mcv [place] ([facility]) Erythrocyte distribution width [Ratio] by Automated count 13.4 % 11.0-15.0 Rdw [place] ([facility]) Platelets [#/volume] in Blood by Automated count 303 thousand/uL 14 0-400 Platelet Count [place] ([facility]) Platelet mean volume [Entitic volume] in Blood by Familia 11.3 f L 7.5-12.5 Mpv [place] ([facility]) Neutrophils [#/volume] in Blood by Automated count 5267 cells/uL 15 00-7800 Absolute Neutrophils [place] ([facility]) Monocytes [#/volume] in Blood by Automated count 462 cells/uL 200-9 50 Absolute Monocytes [place] ([facility]) Lymphocytes [#/volume] in Blood by Automated count 1771 cells/uL 85 0-3900 Absolute Lymphocytes [place] ([facility]) Eosinophils [#/volume] in Blood by Automated count 123 cells/uL 15- 500 Absolute Eosinophils [place] ([facility]) Basophils [#/volume] in Blood by Automated count 77 cells/uL 0-200 Absolute Basophils [place] ([facility]) Neutrophils/100 leukocytes in Blood by Automated count 68.4 % 38-80 Neutrophils [place] ([facility]) Eosinophils/100 leukocytes in Blood by Automated count 1.6 % 0-8 Eosinophils [place] ([facility]) Lymphocytes/100 leukocytes in Blood by Automated count 23.0 % 15-49 Lymphocytes [place] ([facility]) Monocytes/100 leukocytes in Blood by Automated count 6.0 % 0-13 Monocytes [place] ([facility]) Basophils/100 leukocytes in Blood by Automated count 1.0 % 0-2 Basophils [place] ([facility]) ID Date Data Source [id number] 07/27/2021 10:15:00 AM EDT [place] ([facility]) Name Value Range Interpretation Code Description Data Jeannette rce(s) Supporting Document(s) Color of Urine tnp Color [place] ([facility]) ID Date Data Source [id number] 07/27/2021 10:15:00 AM EDT [place] ([facility]) Name Value Range Interpretation Code Description Data Jeannette rce(s) Supporting Document(s) Glucose [Mass/volume] in Serum or Plasma 105 mg/dL 65-99 Above high normal Glucose [place] ([facility]) Urea nitrogen [Mass/volume] in Serum or Plasma 19 mg/dL 7-25 Urea Nitrogen (BUN) [place] ([facility]) Creatinine [Mass/volume] in Serum or Plasma 0.65 mg/dL 0.50-1.10 Creatinine [place] ([facility]) Glomerular filtration rate/1.73 sq M.pre dicted among non-blacks [Volume Rate/Area] in Serum, Plasma or Blood by Creatinine-based formula (CKD-EPI) 115 mL/min/1.73m2 > or = 60 eGFR Non-afr. [place] ([facility]) Urea nitrogen/Creatinine [Mass Ratio] in Serum or Plasma not applic able 6-22 BUN/creatinine Ratio [place] ([facility]) Sodium [Moles/volume] in Serum or Plasma 139 mmol/L 135-146 Sodium [place] ([facility]) Glomerular filtration rate/1.73 sq M.pre dicted among blacks [Volume Rate/Area] in Serum, Plasma or Blood by Creatinine-based formula (CKD-EPI) 133 mL/min/1.73m2 > or = 60 eGFR [place] ([facility]) Chloride [Moles/volume] in Serum or Plasma 105 mmol/L 98-110 Chloride [place] ([facility]) Potassium [Moles/volume] in Serum or Plasma 4.4 mmol/L 3.5-5.3 Potassium [place] ([facility]) Carbon dioxide, total [Moles/volume] in Serum or Plasma 27 mmol/L 20-32 Carbon Dioxide [place] ([facility]) Protein [Mass/volume] in Serum or Plasma 6.5 g/dL 6.1-8.1 Protein, Total [facility]) Calcium [Mass/volume] in Serum or Plasma 9.2 mg/dL 8.6-10.2 Calcium [place] ([facility]) Albumin [Mass/volume] in Serum or Plasma 4.0 g/dL 3.6-5.1 Albumin [place] ([facility]) Albumin/Globulin [Mass Ratio] in Serum or Plasma 1.6 (calc) 1.0-2 .5 Albumin/globulin Ratio [place] ([facility]) Globulin [Mass/volume] in Serum by calculation 2.5 g/dL_(calc) 1.9- 3.7 Globulin [facility]) Bilirubin.total [Mass/volume] in Serum or Plasma 0.3 mg/dL 0.2-1 .2 Bilirubin, Total [place] ([facility]) Aspartate aminotransferase [Enzymatic activity/volume] in Serum or Plasma 14 U/L 10-30 Ast [place] ([facility]) Alkaline phosphatase [Enzymatic activity/volume] in Serum or Plasma 60 U/L 31-125 Alkaline Phosphatase [place] ([facility]) Alanine aminotransferase [Enzymatic activity/volume] in Seru m or Plasma 12 U/L 6-29 Alt [place] ([facility]) ID Date Data Source [id number] 07/27/2021 10:15:00 AM EDT [place] ([facility]) Name Value Range Interpretation Code Description Data Jeannette rce(s) Supporting Document(s) Thyroxine (T4) free [Mass/volume] in Serum or Plasma 1.1 NG/dL 0 .8-1.8 T4, Free [place] ([facility]) Thyrotropin [Units/volume] in Serum or Plasma 0.51 mIU/L Tsh [place] ([facility]) ID Date Data Source [id number] 07/27/2021 10:15:00 AM EDT [place] ([facility]) Name Value Range Interpretation Code Description Data Jeannette rce(s) Supporting Document(s) HIV 1+2 Ab+HIV1 p24 Ag [Presence] in Serum or Plasma b y Immunoassay non-reactive non-reactive HIV Ag/Ab, 4TH Gen [facility]) ID Date Data Source [id number] 07/27/2021 10:15:00 AM EDT [facility]) Name Value Range Interpretation Code Description Data Jeannette rce(s) Supporting Document(s) Cholesterol [Mass/volume] in Serum or Plasma 156 mg/dL <200 Cholesterol, Total [place] ([facility]) Cholesterol in HDL [Mass/volume] in Serum or Plasma 56 mg/dL > or = 50 HDL Cholesterol [place] ([facility]) Cholesterol in LDL [Mass/volume] in Serum or Plasma by calculation 85 mg/dL_(calc) LDL-cholesterol [place] ([facility]) Triglyceride [Mass/volume] in Serum or Plasma 67 mg/dL <150 Triglycerides [place] ([facility]) Cholesterol non HDL [Mass/volume] in Serum or Plasma 100 mg/dL_(donna c) <130 Non HDL Cholesterol [place] ([facility]) Cholesterol.total/Cholesterol in HDL [Mass Ratio] in Serum o r Plasma 2.8 (calc) <5.0 Chol/hdlc Ratio [place] ([facility]) ID Date Data Source [id number] 07/27/2021 10:15:00 AM EDT [place] ([facility]) Name Value Range Interpretation Code Description Data Jeannette rce(s) Supporting Document(s) Iron [Mass/volume] in Serum or Plasma 47 mcg/dL 40-190 Iron, Total [place] ([facility]) Iron binding capacity [Mass/volume] in Serum or Plasma 414 m cg/dL_(calc) 250-450 Iron Binding Capacity [place] ([facility]) Ferritin [Mass/volume] in Serum or Plasma 15 NG/mL 16-154 Below low normal Ferritin [place] ([facility]) Iron saturation [Mass Fraction] in Serum or Plasma 11 %_(calc) 16-45 Below low normal % Saturation [place] ([facility]) ID Date Data Source [id number] 06/24/2021 09:47:00 PM EDT [place] ([facility]) Name Value Range Interpretation Code Description Data Jeannette rce(s) Supporting Document(s) istat HCT 40.0 % 38.0-51.0 Istat HCT [place] ([facility]) istat glucose 92 mg/dL 70-105 Istat Glucose [place] ( [facility]) istat sodium 145 mEq/L 136-145 Istat Sodium [place] ([facility]) istat potassium 4.1 mEq/L 3.5-5.1 Istat Potassium [facility] NA ([facility]) istat CO2 27.0 mm/L 23.0-27.0 Istat CO2 [place] ([facility]) istat Ca++ 5.1 mg/dL 4.5-5.3 Istat Ca++ [place] ([facility]) istat BUN 13 mg/dL 8-26 Istat BUN [place] ([facility]) istat chloride 103 mEq/L 98-109 Istat Chloride [place] ([facility]) istat creatinine 0.6 mg/dL 0.6-1.3 Istat Creatinine AT [facility]) ID Date Data Source [id number] 06/24/2021 09:47:00 PM EDT [facility]) Name Value Range Interpretation Code Description Data Jeannette rce(s) Supporting Document(s) istat glucose 92 mg/dL 70-105 Istat Glucose [place] ( [facility]) istat HCT 40.0 % 38.0-51.0 Istat HCT [place] ([facility]) istat chloride 103 mEq/L 98-109 Istat Chloride [place] ([facility]) istat sodium 145 mEq/L 136-145 Istat Sodium [place] ([facility]) istat Ca++ 5.1 mg/dL 4.5-5.3 Istat Ca++ [place] ([facility]) istat potassium 4.1 mEq/L 3.5-5.1 Istat Potassium [facility] ([facility]) istat creatinine 0.6 mg/dL 0.6-1.3 Istat Creatinine AT [facility] ([facility]) istat CO2 27.0 mm/L 23.0-27.0 Istat CO2 [place] ([facility]) istat BUN 13 mg/dL 8-26 Istat BUN [place] ([facility]) ID Date Data Source [id number] 06/24/2021 09:47:00 PM EDT [facility]) Name Value Range Interpretation Code Description Data Jeannette rce(s) Supporting Document(s) istat HCT 40.0 % 38.0-51.0 Istat HCT [place] ([facility]) istat glucose 92 mg/dL 70-105 Istat Glucose [place] ( [facility]) istat potassium 4.1 mEq/L 3.5-5.1 Istat Potassium [facility] NA ([facility]) istat sodium 145 mEq/L 136-145 Istat Sodium [place] ([facility]) istat Ca++ 5.1 mg/dL 4.5-5.3 Istat Ca++ [place] ([facility]) istat CO2 27.0 mm/L 23.0-27.0 Istat CO2 [place] ([facility]) istat chloride 103 mEq/L 98-109 Istat Chloride [place] ([facility]) istat BUN 13 mg/dL 8-26 Istat BUN [place] ([facility]) istat creatinine 0.6 mg/dL 0.6-1.3 Istat Creatinine AT [facility]) ID Date Data Source [id number] 06/24/2021 09:25:00 PM EDT [facility]) Name Value Range Interpretation Code Description Data Jeannette rce(s) Supporting Document(s) ID Date Data Source [id number] 06/24/2021 09:25:00 PM EDT [facility]) Name Value Range Interpretation Code Description Data Jeannette rce(s) Supporting Document(s) appearance, urine rfx cloudy clear Above high normal Appeara nce, Urine Rfx [place] ([facility]) specific gravity ur auto rfx 1.002-1.035 Specif ic Picher Ur Auto Rfx [facility]) pH,urine rfx 5.0 units 5.0-9.0 pH,urine Rfx [place] ([facility]) color, urine rfx yellow yellow Color, Urine Rfx AT [place] ([facility]) protein, urine auto rfx negative negative Protein, Uri ne Auto Rfx [place] ([facility]) urobilinogen, urine auto rfx 0.2 mg/dL 0.0-2.0 Urobili nogen, Urine Auto Rfx [place] ([facility]) glucose, urine (UA) auto rfx negative negative Glucose , Urine (UA) Auto Rfx [place] ([facility]) ketone, urine auto rfx negative negative Ketone, Urine Auto Rfx [place] ([facility]) leukocyte esterase ur auto rfx 2+ negative Above high normal Leukocyte Esterase Ur Auto Rfx [place] ([facility]) bilirubin, urine auto rfx negative negative Bilirubin, Urine Auto Rfx [place] ([facility]) blood, urine blood rfx negative negative Blood, Urine Blood Rfx [place] ([facility]) nitrite, urine auto rfx negative negative Nitrite, Uri ne Auto Rfx [place] ([facility]) WBC, urine auto rfx 6 /hpf 0-3 Above high normal WBC, Urin e Auto Rfx [place] ([facility]) RBC, urine auto rfx 3 /hpf 0-3 RBC, Urine Auto Rfx [place] ([facility]) bacteria, urine auto rfx 3+ negative Above high normal Bact eria, Urine Auto Rfx [place] ([facility]) mucus, urine rfx moderate negative Mucus, Urine Rfx AT [facility] ([facility]) hyaline cast, urine auto rfx 0 /lpf 0-1 Hyaline Cast, Urine Auto Rfx [place] ([facility]) squam epithelial cell ur aurfx 27 /hpf 0-6 Squam Epithelial Cell Ur Aurfx [place] ([facility]) calcium oxalate crystals rfx large none Calcium Oxalate Crystals Rfx [place] ([facility]) ID Date Data Source [id number] 06/24/2021 09:25:00 PM EDT [place] ([facility]) Name Value Range Interpretation Code Description Data Jeannette rce(s) Supporting Document(s) white blood count 10.3 10 4.0-10.0 Above high normal White Blood Count [place] ([facility]) red blood count 5.05 10 4.00-5.40 Red Blood Count AT[facility] NA ([facility]) hemoglobin 13.3 g/dL 12.0-15.5 Hemoglobin [place] ([facility]) mean corpuscular volume 83.6 fL 80.0-96.0 Mean Corpusc ular Volume [place] ([facility]) hematocrit 42.2 % 36.0-47.0 Hematocrit [place] ([facility]) mean corpuscular HGB conc 31.5 g/dL 32.0-36.5 Below low ej l Mean Corpuscular HGB Conc [place] ([facility]) mean corpuscular hemoglobin 26.3 pg 27.0-33.0 Below low nor mal Mean Corpuscular Hemoglobin [place] ([facility]) platelet count, automated 296 10 150-450 Platelet C ount, Automated [place] ([facility]) neutrophils % 65.4 % 36.0-66.0 Neutrophils % [place] ( [facility]) red cell distribution width 13.5 % 11.5-14.5 Red Cell Distribution Width [place] ([facility]) lymph % 24.9 % 24.0-44.0 Lymph % [place] ([facility]) eos % 1.5 % 0.0-3.0 Eos % [place] ([facility]) mono % 7.0 % 2.0-8.0 [place] % [place] ([facility]) nucleated red blood cell % 0.0 % 0-0 Nucleated Red Blood Cell % [place] ([facility]) immature granulocyte % 0.3 % 0-3.0 Immature Gran ulocyte % [place] ([facility]) neutrophils # 6.7 10 1.5-8.5 Neutrophils # [place] ( [facility]) baso % 0.9 % 0.0-1.0 Baso % [place] ([facility]) baso # 0.1 10 0.0-0.2 Baso # [place] ([facility]) lymph # 2.6 10 1.5-5.0 Lymph # [place] ([facility]) mono # 0.7 10 0.0-0.8 [place] # [place] ([facility]) eos # 0.2 10 0.0-0.5 Eos # [place] ([facility]) ID Date Data Source [id number] 06/24/2021 09:25:00 PM EDT [place] ([facility]) Name Value Range Interpretation Code Description Data Jeannette rce(s) Supporting Document(s) ID Date Data Source [id number] 06/24/2021 09:25:00 PM EDT [place] ([facility]) Name Value Range Interpretation Code Description Data Jeannette rce(s) Supporting Document(s) appearance, urine rfx cloudy clear Above high normal Appeara nce, Urine [facility]) color, urine rfx yellow yellow Color, Urine Rfx AT [facility] ([facility]) pH,urine rfx 5.0 units 5.0-9.0 pH,urine Rfx [place] ([facility]) specific gravity ur auto rfx 1.002-1.035 Specif ic Picher Ur Auto Rfx [place] ([facility]) protein, urine auto rfx negative negative Protein, Uri ne Auto Rfx [place] ([facility]) urobilinogen, urine auto rfx 0.2 mg/dL 0.0-2.0 Urobili nogen, Urine Auto Rfx [place] ([facility]) ketone, urine auto rfx negative negative Ketone, Urine Auto Rfx [place] ([facility]) glucose, urine (UA) auto rfx negative negative Glucose , Urine (UA) Auto Rfx [place] ([facility]) nitrite, urine auto rfx negative negative Nitrite, Uri ne Auto Rfx [place] ([facility]) bilirubin, urine auto rfx negative negative Bilirubin, Urine Auto Rfx [place] ([facility]) leukocyte esterase ur auto rfx 2+ negative Above high normal Leukocyte Esterase Ur Auto Rfx [place] ([facility]) blood, urine blood rfx negative negative Blood, Urine Blood Rfx [place] ([facility]) bacteria, urine auto rfx 3+ negative Above high normal Bact eria, Urine Auto Rfx [place] ([facility]) squam epithelial cell ur aurfx 27 /hpf 0-6 Squam Epithelial Cell Ur Aurfx [place] ([facility]) RBC, urine auto rfx 3 /hpf 0-3 RBC, Urine Auto Rfx [place] ([facility]) WBC, urine auto rfx 6 /hpf 0-3 Above high normal WBC, Urin e Auto Rfx [place] ([facility]) calcium oxalate crystals rfx large none Calcium Oxalate Crystals Rfx [place] ([facility]) mucus, urine rfx moderate negative Mucus, Urine Rfx AT [facility] ([facility]) hyaline cast, urine auto rfx 0 /lpf 0-1 Hyaline Cast, Urine Auto Rfx [place] ([facility]) ID Date Data Source [id number] 06/24/2021 09:25:00 PM EDT [place] ([facility]) Name Value Range Interpretation Code Description Data Jeannette rce(s) Supporting Document(s) hemoglobin 13.3 g/dL 12.0-15.5 Hemoglobin [place] ([facility]) red blood count 5.05 10 4.00-5.40 Red Blood Count [facility] ([facility]) white blood count 10.3 10 4.0-10.0 Above high normal White Blood Count [place] ([facility]) mean corpuscular volume 83.6 fL 80.0-96.0 Mean Corpusc ular Volume [place] ([facility]) hematocrit 42.2 % 36.0-47.0 Hematocrit [place] ([facility]) mean corpuscular HGB conc 31.5 g/dL 32.0-36.5 Below low ej l Mean Corpuscular HGB Conc [place] ([facility]) mean corpuscular hemoglobin 26.3 pg 27.0-33.0 Below low nor mal Mean Corpuscular Hemoglobin [place] ([facility]) neutrophils % 65.4 % 36.0-66.0 Neutrophils % [place] ( [facility]) platelet count, automated 296 10 150-450 Platelet C ount, Automated [place] ([facility]) red cell distribution width 13.5 % 11.5-14.5 Red Cell Distribution Width [place] ([facility]) lymph % 24.9 % 24.0-44.0 Lymph % [place] ([facility]) mono % 7.0 % 2.0-8.0 [place] % [place] ([facility]) baso % 0.9 % 0.0-1.0 Baso % [place] ([facility]) eos % 1.5 % 0.0-3.0 Eos % [place] ([facility]) immature granulocyte % 0.3 % 0-3.0 Immature Gran ulocyte % [place] ([facility]) nucleated red blood cell % 0.0 % 0-0 Nucleated Red Blood Cell % [place] ([facility]) neutrophils # 6.7 10 1.5-8.5 Neutrophils # [place] ( [facility]) mono # 0.7 10 0.0-0.8 [place] # [place] ([facility]) eos # 0.2 10 0.0-0.5 Eos # [place] ([facility]) lymph # 2.6 10 1.5-5.0 Lymph # [place] ([facility]) baso # 0.1 10 0.0-0.2 Baso # [place] ([facility]) ID Date Data Source [id number] 06/24/2021 09:25:00 PM EDT [place] ([facility]) Name Value Range Interpretation Code Description Data Jeannette rce(s) Supporting Document(s) ID Date Data Source [id number] 06/24/2021 09:25:00 PM EDT [place] ([facility]) Name Value Range Interpretation Code Description Data Jeannette rce(s) Supporting Document(s) pH,urine rfx 5.0 units 5.0-9.0 pH,urine Rfx [place] ([facility]) specific gravity ur auto rfx 1.002-1.035 Specif ic Picher Ur Auto Rfx [place] ([facility]) color, urine rfx yellow yellow Color, Urine Rfx AT [facility] ([facility]) appearance, urine rfx cloudy clear Above high normal Appeara nce, Urine Rfx [place] ([facility]) glucose, urine (UA) auto rfx negative negative Glucose , Urine (UA) Auto Rfx [place] ([facility]) ketone, urine auto rfx negative negative Ketone, Urine Auto Rfx [place] ([facility]) urobilinogen, urine auto rfx 0.2 mg/dL 0.0-2.0 Urobili nogen, Urine Auto Rfx [place] ([facility]) protein, urine auto rfx negative negative Protein, Uri ne Auto Rfx [place] ([facility]) blood, urine blood rfx negative negative Blood, Urine Blood Rfx [place] ([facility]) nitrite, urine auto rfx negative negative Nitrite, Uri ne Auto Rfx [place] ([facility]) bilirubin, urine auto rfx negative negative Bilirubin, Urine Auto Rfx [place] ([facility]) leukocyte esterase ur auto rfx 2+ negative Above high normal Leukocyte Esterase Ur Auto Rfx [place] ([facility]) bacteria, urine auto rfx 3+ negative Above high normal Bact eria, Urine Auto Rfx [place] ([facility]) WBC, urine auto rfx 6 /hpf 0-3 Above high normal WBC, Urin e Auto Rfx [place] ([facility]) RBC, urine auto rfx 3 /hpf 0-3 RBC, Urine Auto Rfx [place] ([facility]) mucus, urine rfx moderate negative Mucus, Urine Rfx AT [facility] ([facility]) squam epithelial cell ur aurfx 27 /hpf 0-6 Squam Epithelial Cell Ur Aurfx [place] ([facility]) calcium oxalate crystals rfx large none Calcium Oxalate Crystals Rfx [place] ([facility]) hyaline cast, urine auto rfx 0 /lpf 0-1 Hyaline Cast, Urine Auto Rfx [place] ([facility]) ID Date Data Source [id number] 06/24/2021 09:25:00 PM EDT [place] ([facility]) Name Value Range Interpretation Code Description Data Jeannette rce(s) Supporting Document(s) red blood count 5.05 10 4.00-5.40 Red Blood Count [facility] ([facility]) white blood count 10.3 10 4.0-10.0 Above high normal White Blood Count [place] ([facility]) mean corpuscular hemoglobin 26.3 pg 27.0-33.0 Below low nor mal Mean Corpuscular Hemoglobin [place] ([facility]) hematocrit 42.2 % 36.0-47.0 Hematocrit [place] ([facility]) hemoglobin 13.3 g/dL 12.0-15.5 Hemoglobin [place] ([facility]) mean corpuscular volume 83.6 fL 80.0-96.0 Mean Corpusc ular Volume [place] ([facility]) mean corpuscular HGB conc 31.5 g/dL 32.0-36.5 Below low ej l Mean Corpuscular HGB Conc [place] ([facility]) platelet count, automated 296 10 150-450 Platelet C ount, Automated [place] ([facility]) red cell distribution width 13.5 % 11.5-14.5 Red Cell Distribution Width [place] ([facility]) lymph % 24.9 % 24.0-44.0 Lymph % [place] ([facility]) neutrophils % 65.4 % 36.0-66.0 Neutrophils % [place] ( [facility]) mono % 7.0 % 2.0-8.0 [place] % [place] ([facility]) baso % 0.9 % 0.0-1.0 Baso % [place] ([facility]) nucleated red blood cell % 0.0 % 0-0 Nucleated Red Blood Cell % [place] ([facility]) eos % 1.5 % 0.0-3.0 Eos % [place] ([facility]) immature granulocyte % 0.3 % 0-3.0 Immature Gran ulocyte % [place] ([facility]) lymph # 2.6 10 1.5-5.0 Lymph # [place] ([facility]) neutrophils # 6.7 10 1.5-8.5 Neutrophils # [place] ( [facility]) mono # 0.7 10 0.0-0.8 [place] # [place] ([facility]) baso # 0.1 10 0.0-0.2 Baso # [place] ([facility]) eos # 0.2 10 0.0-0.5 Eos # [place] ([facility]) ID Date Data Source [id number] 02/09/2021 07:31:00 PM EDT [facility] Name Value Range Interpretation Code Description Data Jeannette rce(s) Supporting Document(s) Carestart Rapid COVID Antigen Test Positive [facility] This lab was ordered by [facility] Naila joseph and reported by [facility] Ama. ID Date Data Source [id number] 10/07/2020 04:05:00 PM EST [facility] Name Value Range Interpretation Code Description Data Jeannette rce(s) Supporting Document(s) SARS coronavirus 2 RNA [facility] This lab was ordered by [facility] and reported by [facility]. Procedure Social History No Information Vital Signs ID Date Data Source UNK Name Value Range Interpretation Code Description Data Source(s) Body surface area Derived from formula 2.02 m2 2.02 m2 [facility] ([facility]) Systolic blood pressure 130 mm[Hg] 130 mm[Hg] [facility] Body height 62 [in_i] 62 [in_i] [facility] ([facility]) 5'2" Diastolic blood pressure 68 mm[Hg] 68 mm[Hg] [facility] ([facility]) Body temperature 98.2 [degF] 98.2 [degF] [facility] ([facility]) Body weight 226.38 [lb_av] 226.38 [lb_av] [facility] ([facility]) [place] body weight 110 [lb_av] 110 [lb_av] [facility] ([facility]) Body weight 102.684 kg 102.684 [facility] Body mass index (BMI) [Ratio] 41.4 kg/m2 41.4 k g/m2 [facility] Body height 62 [in_i] 62 [in_i] [place] ([facility]) Diastolic blood pressure 80 mm[Hg] 80 mm[Hg] [place] ([facility]) Body mass index (BMI) [Ratio] 41.7 kg/m2 41.7 k g/m2 [place] ([facility]) Systolic blood pressure 134 mm[Hg] 134 mm[Hg] A [place] ([facility]) Body weight 3648 [oz_av] 3648 [oz_av] [place] ([facility]) [place] body weight 110 [lb_av] 110 [lb_av] [facility] ([facility]) Body weight 103.081 kg 103.081 kg [facility] ([facility]) Body surface area Derived from formula 2.02 m2 2.02 m2 [facility] ([facility]) Body mass index (BMI) [Ratio] 41.6 kg/m2 41.6 k g/m2 [facility] Systolic blood pressure 139 mm[Hg] 139 mm[Hg] M [facility] ([facility]) Diastolic blood pressure 89 mm[Hg] 89 mm[Hg] [facility] Heart rate 75 /min 75 /min [facility] ([facility]) Body temperature 98.4 [degF] 98.4 [degF] [facility] ([facility]) Body height 62 [in_i] 62 [in_i] [facility] ([facility]) 5'2" Body weight 227.25 [lb_av] 227.25 [lb_av] [facility] ([facility]) Body height 62 [in_i] 62 [in_i] [place] ([facility]) Body height 62 [in_i] 62 [in_i] [place] ([facility]) Body mass index (BMI) [Ratio] 41 kg/m2 41 kg/ m2 [place] ([facility]) Body height 62 [in_i] 62 [in_i] [place] ([facility]) Body weight 3586 [oz_av] 3586 [oz_av] [place] ([facility]) Systolic blood pressure 121 mm[Hg] 121 mm[Hg] A [facility] ([facility]) Diastolic blood pressure 86 mm[Hg] 86 mm[Hg] [place] ([facility]) Systolic blood pressure 121 mm[Hg] 121 mm[Hg] [facility] Body weight 3586 [oz_av] 3586 [oz_av] [place] ([facility]) Diastolic blood pressure 86 mm[Hg] 86 mm[Hg] [place] ([facility]) Body height 62 [in_i] 62 [in_i] [place] ([facility]) Body mass index (BMI) [Ratio] 41 kg/m2 41 kg/ m2 [place] ([facility]) Diastolic blood pressure 86 mm[Hg] 86 mm[Hg] [place] ([facility]) Body height 62 [in_i] 62 [in_i] [place] ([facility]) Body mass index (BMI) [Ratio] 41 kg/m2 41 kg/ m2 [place] ([facility]) Systolic blood pressure 121 mm[Hg] 121 mm[Hg] [facility] Body weight 3586 [oz_av] 3586 [oz_av] [place] ([facility]) Patient Treatment Plan of Care Planned Activity Planned Date Details Description Data Source (s) nabumetone 500 MG Oral Tablet [place] ([facility]) Methocarbamol 750 MG Oral Tablet [place] ([facility]) Fluconazole 150 MG Oral Tablet [place] ([facility]) Ciprofloxacin 500 MG Oral Tablet [Cipro] [place] ([facility])
--- OUTSIDE RECORDS SUMMARY | 2021-09-02 05:56 | CCD ---
Author Author [facility] Organization [facility] Address Unknown Phone Unavailable Care Team Providers Care Cable Splicer Name Role Phone Chrissy Beebe MD Unavailable [...] Unavailable Unavailable Gloria, Clari PA Unavailable Unavailable Lgoria, Clari PA Unavailable Unavailable Gloria, Calri PA Unavailable Unavailable Gloria, Clari PA Unavailable [...] Grace PA Unavailable Unavailable Quinn, A Spring ASSISTANT SPA DIRECTOR Unavailable Unavailable Quinn, A Spring ASSISTANT SPA DIRECTOR Unavailable Unavailable Quinn, A Spring ASSISTANT SPA DIRECTOR Unavailable Unavailable Lucas, A Spring ASSISTANT SPA DIRECTOR Unavailable Unavailable Lucas, A Spring ASSISTANT SPA DIRECTOR Unavailable Unavailable Lucas, A Spring ASSISTANT SPA DIRECTOR Unavailable Unavailable Lucas, A Spring ASSISTANT SPA DIRECTOR Unavailable Unavailable Lucas, A Spring ASSISTANT SPA DIRECTOR Unavailable Unavailable Lucas, A Spring ASSISTANT SPA DIRECTOR Unavailable Unavailable Lucas, A Spring ASSISTANT SPA DIRECTOR Unavailable Unavailable Lucas, A Spring ASSISTANT SPA DIRECTOR Unavailable Unavailable Lucas, A Spring ASSISTANT SPA DIRECTOR Unavailable Unavailable Lucas, A Spring ASSISTANT SPA DIRECTOR Unavailable Unavailable Lucas, A Spring ASSISTANT SPA DIRECTOR Unavailable Unavailable Lucas, A Spring ASSISTANT SPA DIRECTOR Unavailable Unavailable Lucas, A Spring ASSISTANT SPA DIRECTOR Unavailable Unavailable Lucas, A Spring ASSISTANT SPA DIRECTOR Unavailable Unavailable Lucas, A Spring ASSISTANT SPA DIRECTOR Unavailable Unavailable Lucas, A Spring ASSISTANT SPA DIRECTOR Unavailable Unavailable Lucas, A Spring ASSISTANT SPA DIRECTOR Unavailable Unavailable Lucas, A Spring ASSISTANT SPA DIRECTOR Unavailable Unavailable Lucas, A Spring ASSISTANT SPA DIRECTOR Unavailable Unavailable Lucas, A Spring ASSISTANT SPA DIRECTOR Unavailable Unavailable Lucas, A Spring ASSISTANT SPA DIRECTOR Unavailable Unavailable Lucas, A Spring ASSISTANT SPA DIRECTOR Unavailable Unavailable Lucas, A Spring ASSISTANT SPA DIRECTOR Unavailable Unavailable Lucas, A Spring ASSISTANT SPA DIRECTOR Unavailable Unavailable Lucas, A Spring ASSISTANT SPA DIRECTOR Unavailable Unavailable Lucas, A Spring ASSISTANT SPA DIRECTOR Unavailable Unavailable Lucas, A Spring ASSISTANT SPA DIRECTOR Unavailable Unavailable Lucas, A Spring ASSISTANT SPA DIRECTOR Unavailable Unavailable BRYDEN, A ANTONINA DO Unavailable [...] is protected by Article 27-F of the [place] Public Health law. If you continue you may have access to information: Regarding HIV / AIDS; Provided by facilities licensed or operated by the [facility] Office of Mental Health; or Provided by the [facility] Office for People With Developmental Disabilities. If such information is present, then the following [facility] mandated warning applies: This information has [...] law may result in a fine or skilled nursing sentence or both. A general authorization for the release of medical or other information is NOT sufficient authorization for further disc losure. Family History Family Member Name Family Member Gender Family Member Status Date o f Status Description Data Source(s) Unknown Unknown Problem MEDENT ([facility], ) Unknown Female Problem MEDENT ([facility] ) Encounters Encounter Providers Location Date Indications Data Source(s ) Outpatient Attender: Lidia Haq/Fieldon/Willie/R eindl 08/20/2021 09:00:00 AM EDT MEDENT ([facility] RACHAEL AndresC: [address], [place] [address], Ph. Attender: JANETT SILVA [facility] Medical 08/20/2021 12:00:00 AM EDT CHRISTOPH ([facility]) RACHAEL AndresC: [address], [place] [address], Ph. Attender: JANETT SILVA [facility] Medical 08/14/2021 12:00:00 AM EDT CHRISTOPH ([facility]) Outpatient Attender: ANTONINA Espinoza/Fieldon/Willie/Quang ndl 08/06/2021 09:00:00 AM EDT MEDENT (Health system, ) Umair Beebe MD: [address] [place] [address], Ph. Attender: Umair Beebe MD [facility] Medical 07/27/2021 12:00:00 AM EDT CHRISTOPH ([facility]) Umair Beebe MD: [address] [place] [address], Ph. Attender: Umair Beebe MD [facility] Medical 07/27/2021 12:00:00 AM EDT CHRISTOPH ([facility]) Springstella Ball [facility]: [address] [place] [address], Ph. Attender: Spring Ball [facility] Medical 07/02/2021 12:00:00 AM EDT CHRISTOPH ([facility]) Spring Ball [facility]: [address] [place] [address], Ph. Attender: Spring Ball [facility] Medical 07/02/2021 12:00:00 AM EDT MAGEE ([facility]) Spring Ball [facility]: [address] [place] [address], Ph. Attender: Spring aBll [facility] Medical 07/02/2021 12:00:00 AM EDT CHRISTOPH ([facility]) Outpatient Attender: Grace GTZ 021 06:09:15 PM EDT - 06/23/2021 07:10:24 PM EDT [facility] ([facility] ) Outpatient Attender: NOLVIA SANFORD RPA 06/21 12:26:08 PM EDT - 06/21/2021 01:35:48 PM EDT [facility] ([facility] ) Umair Beebe MD: [address] [place] [address], Ph. Attender: Umair Beebe MD [facility] Medical 04/30/2021 12:00:00 AM EDT CHRISTOPH ([facility]) Umair Beebe MD: [address] [place] [address], Ph. Attender: Umair Beebe MD [facility] Medical 04/30/2021 12:00:00 AM EDT MAGEE ([facility]) Umair Beebe MD: [address] [place] [address], Ph. Attender: Umair Beebe MD [facility] Medical 04/30/2021 12:00:00 AM EDT MAGEE ([facility]) Umair Beebe MD: [address] [place] [address], Ph. Attender: Umair Beebe MD [facility] Medical 04/30/2021 12:00:00 AM EDT MAGEE ([facility]) Outpatient Attender: Clari Castro PA 0 02/09/2021 07:10:53 PM EDT - 02/09/2021 07:23:28 PM EDT [facility] ([facility]) Immunizations Vaccine Date Status Description Data Source(s) Tdap 08/14/2021 01:45:00 PM EDT completed 08/14/2021 0.5 mL [facility]) COVID-19 vaccine, vector-nr, rS-Ad26, PF, 0.5 mL 04/30/2021 06:21:26 PM EDT completed .5 mL [facility]) COVID-19 vaccine, vector-nr, rS-Ad26, PF, 0.5 mL 04/30/2021 06:21:26 PM EDT completed .5 mL [facility]) COVID-19 vaccine, vector-nr, rS-Ad26, PF, 0.5 mL 04/30/2021 06:21:26 PM EDT completed .5 mL [facility]) COVID-19 vaccine, vector-nr, rS-Ad26, PF, 0.5 mL 04/30/2021 06:21:26 PM EDT completed .5 mL [facility]) COVID-19 VACCINE Justina 04/30/2021 12:00:00 AM EDT completed [place] Vaccine Series Complete: YESThis Data wa s Submitted to [facility] Via [employer]. Medications Medication Brand Name Start Date Product [...] met hocarbamol 750 MG Oral Tablet CHRISTOPH ([facility]) Fluconazole 150 MG Oral Tablet fluconazo le 150 mg tablet TAKE ONE TABLET BY MOUTH ONCE fluconazole 150 mg tablet TAKE ONE TABLET BY MOUTH ONCE completed fluconazole 150 MG Oral Tablet A THENA ([facility]) nabumetone 500 MG Oral Tablet nabumetone 500 mg tablet Take 2 tablets every day by oral route for 21 days. nabumetone 500 mg tablet Take 2 tablets every day by oral route for 21 days. 2 completed nabumetone 500 MG Oral Tablet CHRISTOPH ([facility]) Ciprofloxacin 500 MG Oral Tablet [Cipro] Cipro 500 mg tablet Take 1 tablet every 12 hours by oral route for 7 days. Cipro 500 mg tablet Take 1 tablet every 12 hours by oral route for 7 days. 1 comple kelsey ciprofloxacin 500 MG Oral Tablet [Cipro] CHRISTOPH ([facility]) Insurance Providers Payer name Policy type / Coverage type Policy ID Covered constitution party ID Covered constitution party's relationship to braden Policy Braden Plan Information Medicaid P [id number] S [id number] Medicaid P [id number] S [id number] MEDICAID [id number] SP [id number] Medicaid P [id number] S [id number] Medicaid P [id number] S [id number] [place] [id number] SP [id number] MEDICAID [id number] SP [id number] [place] [id number] SP [id number] M MEDICAID [id number] SP [id number] Medicaid Medicaid [id number] Self [id number] [place] [id number] Self [id number] [place] [id number] Self [id number] SP [id number] [place] [id number] [place] O [id number] P [id number] UNITED [employer] [place] INC [id number] SP [id number] PGBA [facility] [id number] MEDICAID M [id number] S [id number] [place] [id number] Self [id number] MEDICAID [place] [id number] [place] [id number] Self [id number] Medicaid [place] Medicaid [id number] Self [id number] Medicaid [place] Medicaid [id number] Self [id number] [place] [id number] Self [id number] [place] [id number] Self [id number] [place] [id number] Self [id number] Problems, Conditions, and Diagnoses Code Display Name Description Problem Type Effective Dates Data Source(s) [id number] Tobacco dependence caused by cigarettes Tobacco Dependence Caused by Cigarettes Problem 07/06/2021 12:00:00 AM EDT - 08/14/2021 12:00:00 AM EDT MAGEE ([facility]) [id number] Adult health examination Adult Health Examination Prob steve 07/06/2021 12:00:00 AM EDT - 08/14/2021 12:00:00 AM EDT MAGEE ([facility]) [id number] Low back pain Low Back Pain Problem 07/06/2021 12:00:00 AM EDT MAGEE ([facility]) [id number] Pilar cyst of scalp Pilar Cyst of Scalp Problem 0 07/06/2021 12:00:00 AM EDT MAGEE ([facility]) 488936031 Multiple skin tags Multiple Skin Tags Problem 12:00:00 AM EDT CHRISTOPH ([facility]) [id number] Tobacco dependence caused by cigarettes Tobacco Dependence Caused by Cigarettes Problem 07/06/2021 12:00:00 AM EDT CHRISTOPH ([facility]) 154655172 Adult health examination Adult Health Examination Prob steve 07/06/2021 12:00:00 AM EDT CHRISTOPH ([facility]) 365426051 Low back pain Low Back Pain Problem 07/06/2021 12:00:00 AM EDT MAGEE ([facility]) 134694031 Pilar cyst of scalp Pilar Cyst of Scalp Problem 0 07/06/2021 12:00:00 AM EDT [facility]STOPH ([facility]) [id number] Multiple skin tags Multiple Skin Tags Problem 12:00:00 AM EDT CHRISTOPH ([facility]) [id number] Tobacco dependence caused by cigarettes Tobacco Dependence Caused by Cigarettes Problem 07/06/2021 12:00:00 AM EDT CHRISTOPH ([facility]) 771484901 Adult health examination Adult Health Examination Prob steve 07/06/2021 12:00:00 AM EDT CHRISTOPH ([facility]) 385821019 Low back pain Low Back Pain Problem 07/06/2021 12:00:00 AM EDT [facility]RISTOPH ([facility]) 489672039 Pilar cyst of scalp Pilar Cyst of Scalp Problem 0 07/06/2021 12:00:00 AM EDT CHRISTOPH ([facility]) 434571946 Multiple skin tags Multiple Skin Tags Problem 12:00:00 AM EDT CHRITSOPH ([facility]) [id number] Pain of left shoulder joint Pain of Left Shoul sudhakar Joint Problem 08/15/2018 12:00:00 AM EDT - 08/14/2021 12:00:00 AM ED T CHRISTOPH ([facility]) 52610548 Cyst of ovary Cyst of Ovary Problem 02/10/2018 12 :00:00 AM EDT - 08/14/2021 12:00:00 AM EDT CHRISTOPH ([facility]) 14963392 Epigastric pain Epigastric Pain Problem 8 12:00:00 AM EDT - 08/14/2021 12:00:00 AM EDT CHRISTOPH ([facility]) [id number] Acute serous otitis media of bilateral e ars Acute Serous Otitis Media of Bilateral Ears Problem 01/18/2018 12:00:00 AM EST - 08/14/2021 12:00:00 AM EDT CHRISTOPH ([facility]) 450292594 Clinical finding Clinical Finding Problem 018 12:00:00 AM EST - 08/14/2021 12:00:00 AM EDT CHRISTOPH ([facility]) 91602593 Nicotine dependence Nicotine Dependence Problem 0 01/11/2018 12:00:00 AM EST - 08/14/2021 12:00:00 AM EDT CHRISTOPH ([facility]) 138998548 SNOMED CT Concept SNOMED CT Concept Problem 02/10 12:00:00 AM EDT - 08/14/2021 12:00:00 AM EDT CHRISTOPH ([facility]) [id number] Procedure by method Procedure by Method Problem 0 02/11/2016 12:00:00 AM EDT - 08/14/2021 12:00:00 AM EDT CHRISTOPH ([facility]) 86522762 Abdominal pain Abdominal Pain Problem 10/28/2014 12:00:00 AM EST - 08/14/2021 12:00:00 AM EDT CHRISTOPH ([facility]) [id number] Influenza vaccine needed Influenza Vaccine Needed Pro blem 10/22/2014 12:00:00 AM EST - 08/14/2021 12:00:00 AM EDT [facility]RISTOPH ([facility]) 372819013 On examination - gallbladder On Examination - Gallblad sudhakar Problem 08/29/2014 12:00:00 AM EDT - 08/14/2021 12:00:00 AM EDT [facility]RISTOPH ([facility]) 226422682 Nausea Nausea Problem 08/26/2014 12:0 0:00 AM EDT - 08/14/2021 12:00:00 AM EDT CHRISTOPH ([facility]) Surgeries/Procedures Procedure Description Date Indications Data Source(s) OFFICE OUTPATIENT VISIT 10 MINUTES 08/20/2021 12:00:00 AM EDT MEDENT ([facility], ) Excise Benign Lesion .6-1CM Scalp/Neck/Hands/Feet/Genitalia 08/06/2021 12:00:00 AM EDT MEDENT ([facility], ) Excise Benign Lesion 1.1-2CM Scalp/Neck/Hands/Feet/Genitalia 08/06/2021 12:00:00 AM EDT MEDENT ([facility], ) OFFICE OUTPATIENT NEW 45 MINUTES 08/06/2021 12:00:00 A M EDT MEDENT ([facility], ) Results ID Date Data Source [id number] 08/06/2021 09:42:00 AM EDT [facility], ) Name Value Range Interpretation Code Description Data Jeannette rce(s) Supporting Document(s) Surgical pathology study Laboratory test result [facility] ([facility], ) FINAL DIAGNOSIS Scalp cyst x 2, [...] one mostly intact and the other fragmented. Tobacco Sieve Operator sections are submitted in one. JOHNY 08/07/20211137 Signed Blanca Miller MD 08/10/2021 1337 ID Date Data Source [id number] 07/27/2021 10:15:00 AM EDT [facility]) Name Value Range Interpretation Code Description Data Jeannette rce(s) Supporting Document(s) Hemoglobin A1c/Hemoglobin.total in Blood 5.0 %_of_total_HGB <5.7 Hemoglobin a1C [facility]) ID Date Data Source [id number] 07/27/2021 10:15:00 AM EDT [facility]) Name Value Range Interpretation Code Description Data Jeannette rce(s) Supporting Document(s) Calcidiol [Mass/volume] in Serum or Plasma 17 NG/mL 30-100 Below low normal Vitamin D,25-Oh,total,ia [facility]) ID Date Data Source [id number] 07/27/2021 10:15:00 AM EDT [facility]) Name Value Range Interpretation Code Description Data Jeannette rce(s) Supporting Document(s) Folate [Mass/volume] in Serum or Plasma 8.8 NG/mL Folate, Serum [facility]) Cobalamin (Vitamin B12) [Mass/volume] in Serum or Plasma 399 pg/mL 200-1100 Vitamin B12 [facility]STOPH ([facility]) ID Date Data Source [id number] 07/27/2021 10:15:00 AM EDT CHRISTOPH ([facility]) Name Value Range Interpretation Code Description Data Jeannette rce(s) Supporting Document(s) Leukocytes [#/volume] in Blood by Automated count 7.7 thousand/uL 3 .8-10.8 White Blood Cell Count CH[facility]STOPH ([facility]) Hematocrit [Volume Fraction] of Blood by Automated count 39.4 % 35.0-45.0 Hematocrit [facility]STOP[facility] ([facility]) Erythrocytes [#/volume] in Blood by Automated count 4.80 million/uL 3.80-5.10 Red Blood Cell Count [facility]STOP[facility] ([facility]) Hemoglobin [Mass/volume] in Blood 12.4 g/dL 11.7-15.5 He moglobin [facility]STOPH ([facility]) Erythrocyte mean corpuscular hemoglobin [Entitic mass] by Automated count 25.8 pg 27.0-33.0 Below low normal Mch CHRISTOPH ([facility]) Erythrocyte mean corpuscular hemoglobin concentration [Mass/volume] by Automated count 31.5 g/dL 32.0-36.0 Below low normal Mchc CHRISTOPH ([facility]) Erythrocyte mean corpuscular volume [Entitic volume] by Auto mated count 82.1 fL 80.0-100.0 Mcv [facility]STOPH ([facility]) Erythrocyte distribution width [Ratio] by Automated count 13.4 % 11.0-15.0 Rdw [facility]STOPH ([facility]) Platelets [#/volume] in Blood by Automated count 303 thousand/uL 14 0-400 Platelet Count MAGEE ([facility]) Platelet mean volume [Entitic volume] in Blood by Familia 11.3 f L 7.5-12.5 Mpv CH[facility]STOPH ([facility]) Neutrophils [#/volume] in Blood by Automated count 5267 cells/uL 15 00-7800 Absolute Neutrophils [facility]STOP[facility] ([facility]) Monocytes [#/volume] in Blood by Automated count 462 cells/uL 200-9 50 Absolute Monocytes [facility] ([facility]) Lymphocytes [#/volume] in Blood by Automated count 1771 cells/uL 85 0-3900 Absolute Lymphocytes [facility]STOP[facility] ([facility]) Eosinophils [#/volume] in Blood by Automated count 123 cells/uL 15- 500 Absolute Eosinophils [facility]STOP[facility] ([facility]) Basophils [#/volume] in Blood by Automated count 77 cells/uL 0-200 Absolute Basophils [facility]STOP[facility] ([facility]) Neutrophils/100 leukocytes in Blood by Automated count 68.4 % 38-80 Neutrophils [facility]STOP[facility] ([facility]) Eosinophils/100 leukocytes in Blood by Automated count 1.6 % 0-8 Eosinophils [facility] ([facility]) Lymphocytes/100 leukocytes in Blood by Automated count 23.0 % 15-49 Lymphocytes [facility] ([facility]) Monocytes/100 leukocytes in Blood by Automated count 6.0 % 0-13 Monocytes [facility] ([facility]) Basophils/100 leukocytes in Blood by Automated count 1.0 % 0-2 Basophils [facility]STOP[facility] ([facility]) ID Date Data Source [id number] 07/27/2021 10:15:00 AM EDT MAGEE ([facility]) Name Value Range Interpretation Code Description Data Jeannette rce(s) Supporting Document(s) Color of Urine tnp Color [facility]STOP[facility] ([facility]) ID Date Data Source [id number] 07/27/2021 10:15:00 AM EDT MAGEE ([facility]) Name Value Range Interpretation Code Description Data Jeannette rce(s) Supporting Document(s) Glucose [Mass/volume] in Serum or Plasma 105 mg/dL 65-99 Above high normal Glucose CH[facility]STOPH ([facility]) Urea nitrogen [Mass/volume] in Serum or Plasma 19 mg/dL 7-25 Urea Nitrogen (BUN) [facility]STOP[facility] ([facility]) Creatinine [Mass/volume] in Serum or Plasma 0.65 mg/dL 0.50-1.10 Creatinine [facility]STOP[facility] ([facility]) Glomerular filtration rate/1.73 sq M.pre dicted among non-blacks [Volume Rate/Area] in Serum, Plasma or Blood by Creatinine-based formula (CKD-EPI) 115 mL/min/1.73m2 > or = 60 eGFR Non-afr. Lithuanian CHRISTOPH ([facility]) Urea nitrogen/Creatinine [Mass Ratio] in Serum or Plasma not applic able 6-22 BUN/creatinine Ratio [facility]STOPH ([facility]) Sodium [Moles/volume] in Serum or Plasma 139 mmol/L 135-146 Sodium [facility]STOP[facility] ([facility]) Glomerular filtration rate/1.73 sq M.pre dicted among blacks [Volume Rate/Area] in Serum, Plasma or Blood by Creatinine-based formula (CKD-EPI) 133 mL/min/1.73m2 > or = 60 eGFR CHRISTOPH ([facility]) Chloride [Moles/volume] in Serum or Plasma 105 mmol/L 98-110 Chloride MAGEE ([facility]) Potassium [Moles/volume] in Serum or Plasma 4.4 mmol/L 3.5-5.3 Potassium MAGEE ([facility]) Carbon dioxide, total [Moles/volume] in Serum or Plasma 27 mmol/L 20-32 Carbon Dioxide MAGEE ([facility]) Protein [Mass/volume] in Serum or Plasma 6.5 g/dL 6.1-8.1 Protein, Total [facility]) Calcium [Mass/volume] in Serum or Plasma 9.2 mg/dL 8.6-10.2 Calcium MAGEE ([facility]) Albumin [Mass/volume] in Serum or Plasma 4.0 g/dL 3.6-5.1 Albumin MAGEE ([facility]) Albumin/Globulin [Mass Ratio] in Serum or Plasma 1.6 (calc) 1.0-2 .5 Albumin/globulin Ratio MAGEE ([facility]) Globulin [Mass/volume] in Serum by calculation 2.5 g/dL_(calc) 1.9- 3.7 Globulin [facility]) Bilirubin.total [Mass/volume] in Serum or Plasma 0.3 mg/dL 0.2-1 .2 Bilirubin, Total MAGEE ([facility]) Aspartate aminotransferase [Enzymatic activity/volume] in Serum or Plasma 14 U/L 10-30 Ast CH[facility]STOPH ([facility]) Alkaline phosphatase [Enzymatic activity/volume] in Serum or Plasma 60 U/L 31-125 Alkaline Phosphatase [facility] ([facility]) Alanine aminotransferase [Enzymatic activity/volume] in Seru m or Plasma 12 U/L 6-29 Alt [facility]STOP[facility] ([facility]) ID Date Data Source [id number] 07/27/2021 10:15:00 AM EDT CHRISTOPH ([facility]) Name Value Range Interpretation Code Description Data Jeannette rce(s) Supporting Document(s) Thyroxine (T4) free [Mass/volume] in Serum or Plasma 1.1 NG/dL 0 .8-1.8 T4, Free [facility]STOP[facility] ([facility]) Thyrotropin [Units/volume] in Serum or Plasma 0.51 mIU/L Tsh MAGEE ([facility]) ID Date Data Source [id number] 07/27/2021 10:15:00 AM EDT MAGEE ([facility]) Name Value Range Interpretation Code Description Data Jeannette rce(s) Supporting Document(s) HIV 1+2 Ab+HIV1 p24 Ag [Presence] in Serum or Plasma b y Immunoassay non-reactive non-reactive HIV Ag/Ab, 4TH Gen [facility]) ID Date Data Source [id number] 07/27/2021 10:15:00 AM EDT [facility]) Name Value Range Interpretation Code Description Data Jeannette rce(s) Supporting Document(s) Cholesterol [Mass/volume] in Serum or Plasma 156 mg/dL <200 Cholesterol, Total CHRISTOPH ([facility]) Cholesterol in HDL [Mass/volume] in Serum or Plasma 56 mg/dL > or = 50 HDL Cholesterol CHRISTOPH ([facility]) Cholesterol in LDL [Mass/volume] in Serum or Plasma by calculation 85 mg/dL_(calc) LDL-cholesterol CHRISTOPH ([facility]) Triglyceride [Mass/volume] in Serum or Plasma 67 mg/dL <150 Triglycerides CHRISTOPH ([facility]) Cholesterol non HDL [Mass/volume] in Serum or Plasma 100 mg/dL_(donna c) <130 Non HDL Cholesterol CHRISTOPH ([facility]) Cholesterol.total/Cholesterol in HDL [Mass Ratio] in Serum o r Plasma 2.8 (calc) <5.0 Chol/hdlc Ratio CHRISTOPH ([facility]) ID Date Data Source [id number] 07/27/2021 10:15:00 AM EDT CHRISTOPH ([facility]) Name Value Range Interpretation Code Description Data Jeannette rce(s) Supporting Document(s) Iron [Mass/volume] in Serum or Plasma 47 mcg/dL 40-190 Iron, Total CHRISTOPH ([facility]) Iron binding capacity [Mass/volume] in Serum or Plasma 414 m cg/dL_(calc) 250-450 Iron Binding Capacity CHRISTOPH ([facility]) Ferritin [Mass/volume] in Serum or Plasma 15 NG/mL 16-154 Below low normal Ferritin CHRISTOPH ([facility]) Iron saturation [Mass Fraction] in Serum or Plasma 11 %_(calc) 16-45 Below low normal % Saturation CHRISTOPH ([facility]) ID Date Data Source [id number] 06/24/2021 09:47:00 PM EDT CHRISTOPH ([facility]) Name Value Range Interpretation Code Description Data Jeannette rce(s) Supporting Document(s) istat HCT 40.0 % 38.0-51.0 Istat HCT CHRISTOPH ([facility]) istat glucose 92 mg/dL 70-105 Istat Glucose CHRISTOPH ( [facility]) istat sodium 145 mEq/L 136-145 Istat Sodium CHRISTOPH ([facility]) istat potassium 4.1 mEq/L 3.5-5.1 Istat Potassium ATHE NA ([facility]) istat CO2 27.0 mm/L 23.0-27.0 Istat CO2 CHRISTOPH ([facility]) istat Ca++ 5.1 mg/dL 4.5-5.3 Istat Ca++ CHRISOTPH ([facility]) istat BUN 13 mg/dL 8-26 Istat BUN CHRISTOPH ([facility]) istat chloride 103 mEq/L 98-109 Istat Chloride CHRISTOPH ([facility]) istat creatinine 0.6 mg/dL 0.6-1.3 Istat Creatinine AT [facility]) ID Date Data Source [id number] 06/24/2021 09:47:00 PM EDT [facility]) Name Value Range Interpretation Code Description Data Jeannette rce(s) Supporting Document(s) istat glucose 92 mg/dL 70-105 Istat Glucose CHRISTOPH ( [facility]) istat HCT 40.0 % 38.0-51.0 Istat HCT CHRISTOPH ([facility]) istat chloride 103 mEq/L 98-109 Istat Chloride CHRISTOPH ([facility]) istat sodium 145 mEq/L 136-145 Istat Sodium CHRISTOPH ([facility]) istat Ca++ 5.1 mg/dL 4.5-5.3 Istat Ca++ CHRISTOPH ([facility]) istat potassium 4.1 mEq/L 3.5-5.1 Istat Potassium ATHE ([facility]) istat creatinine 0.6 mg/dL 0.6-1.3 Istat Creatinine AT [facility] ([facility]) istat CO2 27.0 mm/L 23.0-27.0 Istat CO2 CHRISTOPH ([facility]) istat BUN 13 mg/dL 8-26 Istat BUN CHRISTOPH ([facility]) ID Date Data Source [id number] 06/24/2021 09:47:00 PM EDT [facility]) Name Value Range Interpretation Code Description Data Jeannette rce(s) Supporting Document(s) istat HCT 40.0 % 38.0-51.0 Istat HCT CHRISTOPH ([facility]) istat glucose 92 mg/dL 70-105 Istat Glucose CHRISTOPH ( [facility]) istat potassium 4.1 mEq/L 3.5-5.1 Istat Potassium ATHE NA ([facility]) istat sodium 145 mEq/L 136-145 Istat Sodium CHRISTOPH ([facility]) istat Ca++ 5.1 mg/dL 4.5-5.3 Istat Ca++ MAGEE ([facility]) istat CO2 27.0 mm/L 23.0-27.0 Istat CO2 [place] ([facility]) istat chloride 103 mEq/L 98-109 Istat Chloride MAGEE ([facility]) istat BUN 13 mg/dL 8-26 Istat BUN [place] ([facility]) istat creatinine 0.6 mg/dL 0.6-1.3 Istat Creatinine AT [facility]) ID Date Data Source [id number] 06/24/2021 09:25:00 PM EDT [facility]) Name Value Range Interpretation Code Description Data Jeannette rce(s) Supporting Document(s) ID Date Data Source [id number] 06/24/2021 09:25:00 PM EDT [facility]) Name Value Range Interpretation Code Description Data Jeannette rce(s) Supporting Document(s) appearance, urine rfx cloudy clear Above high normal Appeara nce, Urine Rfx MAGEE ([facility]) specific gravity ur auto rfx 1.002-1.035 Specif ic [place] Ur Auto Rfx [facility]) pH,urine rfx 5.0 units 5.0-9.0 pH,urine Rfx MAGEE ([facility]) color, urine rfx yellow yellow Color, Urine Rfx AT [facility] ([facility]) protein, urine auto rfx negative negative Protein, Uri ne Auto Rfx [place] ([facility]) urobilinogen, urine auto rfx 0.2 mg/dL 0.0-2.0 Urobili nogen, Urine Auto Rfx CHRISTOPH ([facility]) glucose, urine (UA) auto rfx negative negative Glucose , Urine (UA) Auto Rfx [place] ([facility]) ketone, urine auto rfx negative negative Ketone, Urine Auto Rfx [place] ([facility]) leukocyte esterase ur auto rfx 2+ negative Above high normal Leukocyte Esterase Ur Auto Rfx [place] ([facility]) bilirubin, urine auto rfx negative negative Bilirubin, Urine Auto Rfx [place] ([facility]) blood, urine blood rfx negative negative Blood, Urine Blood Rfx [place] ([facility]) nitrite, urine auto rfx negative negative Nitrite, Uri ne Auto Rfx [place] ([facility]) WBC, urine auto rfx 6 /hpf 0-3 Above high normal WBC, Urin e Auto Rfx [place] ([facility]) RBC, urine auto rfx 3 /hpf 0-3 RBC, Urine Auto Rfx [place] ([facility]) bacteria, urine auto rfx 3+ negative Above high normal Bact eria, Urine Auto Rfx [place] ([facility]) mucus, urine rfx moderate negative Mucus, Urine Rfx AT [facility] ([facility]) hyaline cast, urine auto rfx 0 /lpf 0-1 Hyaline Cast, Urine Auto Rfx [place] ([facility]) squam epithelial cell ur aurfx 27 /hpf 0-6 Squam Epithelial Cell Ur Aurfx CHRISTOPH ([facility]) calcium oxalate crystals rfx large none Calcium Oxalate Crystals Rfx MAGEE ([facility]) ID Date Data Source [id number] 06/24/2021 09:25:00 PM EDT [place] ([facility]) Name Value Range Interpretation Code Description Data Jeannette rce(s) Supporting Document(s) white blood count 10.3 10 4.0-10.0 Above high normal White Blood Count CHRISTOPH ([facility]) red blood count 5.05 10 4.00-5.40 Red Blood Count ATHE NA ([facility]) hemoglobin 13.3 g/dL 12.0-15.5 Hemoglobin CHRISTOPH ([facility]) mean corpuscular volume 83.6 fL 80.0-96.0 Mean Corpusc ular Volume CHRISTOPH ([facility]) hematocrit 42.2 % 36.0-47.0 Hematocrit CHRISTOPH ([facility]) mean corpuscular HGB conc 31.5 g/dL 32.0-36.5 Below low ej l Mean Corpuscular HGB Conc CHRISTOPH ([facility]) mean corpuscular hemoglobin 26.3 pg 27.0-33.0 Below low nor mal Mean Corpuscular Hemoglobin CHRISTOPH ([facility]) platelet count, automated 296 10 150-450 Platelet C ount, Automated CHRISTOPH ([facility]) neutrophils % 65.4 % 36.0-66.0 Neutrophils % CHRISTOPH ( [facility]) red cell distribution width 13.5 % 11.5-14.5 Red Cell Distribution Width CHRISTOPH ([facility]) lymph % 24.9 % 24.0-44.0 Lymph % CHRISTOPH ([facility]) eos % 1.5 % 0.0-3.0 Eos % CHRISTOPH ([facility]) mono % 7.0 % 2.0-8.0 [place] % CHRISTOPH ([facility]) nucleated red blood cell % 0.0 % 0-0 Nucleated Red Blood Cell % CHRISTOPH ([facility]) immature granulocyte % 0.3 % 0-3.0 Immature Gran ulocyte % CHRISTOPH ([facility]) neutrophils # 6.7 10 1.5-8.5 Neutrophils # CHRISTOPH ( [facility]) baso % 0.9 % 0.0-1.0 Baso % CHRISTOPH ([facility]) baso # 0.1 10 0.0-0.2 Baso # CHRISTOPH ([facility]) lymph # 2.6 10 1.5-5.0 Lymph # CHRISTOPH ([facility]) mono # 0.7 10 0.0-0.8 [place] # CHRISTOPH ([facility]) eos # 0.2 10 0.0-0.5 Eos # CHRISTOPH ([facility]) ID Date Data Source [id number] 06/24/2021 09:25:00 PM EDT MAGEE ([facility]) Name Value Range Interpretation Code Description Data Jeannette rce(s) Supporting Document(s) ID Date Data Source [id number] 06/24/2021 09:25:00 PM EDT MAGEE ([facility]) Name Value Range Interpretation Code Description Data Jeannette rce(s) Supporting Document(s) appearance, urine rfx cloudy clear Above high normal Appeara nce, Urine Rfx [facility]) color, urine rfx yellow yellow Color, Urine Rfx AT [facility] ([facility]) pH,urine rfx 5.0 units 5.0-9.0 pH,urine Rfx MAGEE ([facility]) specific gravity ur auto rfx 1.002-1.035 Specif ic [place] Ur Auto Rfx [place] ([facility]) protein, urine auto rfx negative negative Protein, Uri ne Auto Rfx [place] ([facility]) urobilinogen, urine auto rfx 0.2 mg/dL 0.0-2.0 Urobili nogen, Urine Auto Rfx [place] ([facility]) ketone, urine auto rfx negative negative Ketone, Urine Auto Rfx [place] ([facility]) glucose, urine (UA) auto rfx negative negative Glucose , Urine (UA) Auto Rfx [place] ([facility]) nitrite, urine auto rfx negative negative Nitrite, Uri ne Auto Rfx [place] ([facility]) bilirubin, urine auto rfx negative negative Bilirubin, Urine Auto Rfx [place] ([facility]) leukocyte esterase ur auto rfx 2+ negative Above high normal Leukocyte Esterase Ur Auto Rfx [place] ([facility]) blood, urine blood rfx negative negative Blood, Urine Blood Rfx [place] ([facility]) bacteria, urine auto rfx 3+ negative Above high normal Bact eria, Urine Auto Rfx CHRISTOPH ([facility]) squam epithelial cell ur aurfx 27 /hpf 0-6 Squam Epithelial Cell Ur Aurfx CHRISTOPH ([facility]) RBC, urine auto rfx 3 /hpf 0-3 RBC, Urine Auto Rfx CHRISTOPH ([facility]) WBC, urine auto rfx 6 /hpf 0-3 Above high normal WBC, Urin e Auto Rfx CHRISTOPH ([facility]) calcium oxalate crystals rfx large none Calcium Oxalate Crystals Rfx MAG[place] ([facility]) mucus, urine rfx moderate negative Mucus, Urine Rfx AT [facility] ([facility]) hyaline cast, urine auto rfx 0 /lpf 0-1 Hyaline Cast, Urine Auto Rfx [place] ([facility]) ID Date Data Source [id number] 06/24/2021 09:25:00 PM EDT MAG[place] ([facility]) Name Value Range Interpretation Code Description Data Jeannette rce(s) Supporting Document(s) hemoglobin 13.3 g/dL 12.0-15.5 Hemoglobin CHRISTOPH ([facility]) red blood count 5.05 10 4.00-5.40 Red Blood Count [facility] ([facility]) white blood count 10.3 10 4.0-10.0 Above high normal White Blood Count [place] ([facility]) mean corpuscular volume 83.6 fL 80.0-96.0 Mean Corpusc ular Volume CHRISTOPH ([facility]) hematocrit 42.2 % 36.0-47.0 Hematocrit CHRISTOPH ([facility]) mean corpuscular HGB conc 31.5 g/dL 32.0-36.5 Below low ej l Mean Corpuscular HGB Conc CHRISTOPH ([facility]) mean corpuscular hemoglobin 26.3 pg 27.0-33.0 Below low nor mal Mean Corpuscular Hemoglobin CHRISTOPH ([facility]) neutrophils % 65.4 % 36.0-66.0 Neutrophils % CHRISTOPH ( [facility]) platelet count, automated 296 10 150-450 Platelet C ount, Automated CHRISTOPH ([facility]) red cell distribution width 13.5 % 11.5-14.5 Red Cell Distribution Width CHRISTOPH ([facility]) lymph % 24.9 % 24.0-44.0 Lymph % CHRISTOPH ([facility]) mono % 7.0 % 2.0-8.0 [place] % CHRISTOPH ([facility]) baso % 0.9 % 0.0-1.0 Baso % MAGEE ([facility]) eos % 1.5 % 0.0-3.0 Eos % MAG[place] ([facility]) immature granulocyte % 0.3 % 0-3.0 Immature Gran ulocyte % MAG[place] ([facility]) nucleated red blood cell % 0.0 % 0-0 Nucleated Red Blood Cell % [place] ([facility]) neutrophils # 6.7 10 1.5-8.5 Neutrophils # MAG[place] ( [facility]) mono # 0.7 10 0.0-0.8 [place]s # MAGEE ([facility]) eos # 0.2 10 0.0-0.5 Eos # [place] ([facility]) lymph # 2.6 10 1.5-5.0 Lymph # MAGEE ([facility]) baso # 0.1 10 0.0-0.2 Baso # MAGEE ([facility]) ID Date Data Source [id number] 06/24/2021 09:25:00 PM EDT [place] ([facility]) Name Value Range Interpretation Code Description Data Jeannette rce(s) Supporting Document(s) ID Date Data Source [id number] 06/24/2021 09:25:00 PM EDT [place] ([facility]) Name Value Range Interpretation Code Description Data Jeannette rce(s) Supporting Document(s) pH,urine rfx 5.0 units 5.0-9.0 pH,urine Rfx CHRISTOPH ([facility]) specific gravity ur auto rfx 1.002-1.035 Specif ic [place] Ur Auto Rfx [place] ([facility]) color, urine rfx yellow yellow Color, Urine Rfx AT [facility] ([facility]) appearance, urine rfx cloudy clear Above high normal Appeara nce, Urine Rfx [place] ([facility]) glucose, urine (UA) auto rfx negative negative Glucose , Urine (UA) Auto Rfx [place] ([facility]) ketone, urine auto rfx negative negative Ketone, Urine Auto Rfx [place] ([facility]) urobilinogen, urine auto rfx 0.2 mg/dL 0.0-2.0 Urobili nogen, Urine Auto Rfx [place] ([facility]) protein, urine auto rfx negative negative Protein, Uri ne Auto Rfx [place] ([facility]) blood, urine blood rfx negative negative Blood, Urine Blood Rfx [place] ([facility]) nitrite, urine auto rfx negative negative Nitrite, Uri ne Auto Rfx [place] ([facility]) bilirubin, urine auto rfx negative negative Bilirubin, Urine Auto Rfx [place] ([facility]) leukocyte esterase ur auto rfx 2+ negative Above high normal Leukocyte Esterase Ur Auto Rfx [place] ([facility]) bacteria, urine auto rfx 3+ negative Above high normal Bact eria, Urine Auto Rfx [place] ([facility]) WBC, urine auto rfx 6 /hpf 0-3 Above high normal WBC, Urin e Auto Rfx [place] ([facility]) RBC, urine auto rfx 3 /hpf 0-3 RBC, Urine Auto Rfx [place] ([facility]) mucus, urine rfx moderate negative Mucus, Urine Rfx AT [facility] ([facility]) squam epithelial cell ur aurfx 27 /hpf 0-6 Squam Epithelial Cell Ur Aurfx [place] ([facility]) calcium oxalate crystals rfx large none Calcium Oxalate Crystals Rfx [place] ([facility]) hyaline cast, urine auto rfx 0 /lpf 0-1 Hyaline Cast, Urine Auto Rfx [place] ([facility]) ID Date Data Source [id number] 06/24/2021 09:25:00 PM EDT [place] ([facility]) Name Value Range Interpretation Code Description Data Jeannette rce(s) Supporting Document(s) red blood count 5.05 10 4.00-5.40 Red Blood Count ATHE NA ([facility]) white blood count 10.3 10 4.0-10.0 Above high normal White Blood Count CHRISTOPH ([facility]) mean corpuscular hemoglobin 26.3 pg 27.0-33.0 Below low nor mal Mean Corpuscular Hemoglobin CHRISTOPH ([facility]) hematocrit 42.2 % 36.0-47.0 Hematocrit CHRISTOPH ([facility]) hemoglobin 13.3 g/dL 12.0-15.5 Hemoglobin [place] ([facility]) mean corpuscular volume 83.6 fL 80.0-96.0 Mean Corpusc ular Volume CHRISTOPH ([facility]) mean corpuscular HGB conc 31.5 g/dL 32.0-36.5 Below low ej l Mean Corpuscular HGB Conc CHRISTOPH ([facility]) platelet count, automated 296 10 150-450 Platelet C ount, Automated [place] ([facility]) red cell distribution width 13.5 % 11.5-14.5 Red Cell Distribution Width [place] ([facility]) lymph % 24.9 % 24.0-44.0 Lymph % [place] ([facility]) neutrophils % 65.4 % 36.0-66.0 Neutrophils % MAG[place] ( [facility]) mono % 7.0 % 2.0-8.0 [place] % MAGEE ([facility]) baso % 0.9 % 0.0-1.0 Baso % [place] ([facility]) nucleated red blood cell % 0.0 % 0-0 Nucleated Red Blood Cell % [place] ([facility]) eos % 1.5 % 0.0-3.0 Eos % [place] ([facility]) immature granulocyte % 0.3 % 0-3.0 Immature Gran ulocyte % [place] ([facility]) lymph # 2.6 10 1.5-5.0 Lymph # CHRISTOPH ([facility]) neutrophils # 6.7 10 1.5-8.5 Neutrophils # CHRISTOPH ( [facility]) mono # 0.7 10 0.0-0.8 [place] # CHRISTOPH ([facility]) baso # 0.1 10 0.0-0.2 Baso # CHRISTOPH ([facility]) eos # 0.2 10 0.0-0.5 Eos # CHRISTOPH ([facility]) ID Date Data Source [id number] 02/09/2021 07:31:00 PM EDT [facility] Name Value Range Interpretation Code Description Data Jeannette rce(s) Supporting Document(s) Carestart Rapid COVID Antigen Test Positive [facility] This lab was ordered by [facility] Naila joseph and reported by [facility] Ama. ID Date Data Source [id number] 10/07/2020 04:05:00 PM EST [facility] Name Value Range Interpretation Code Description Data Jeannette rce(s) Supporting Document(s) SARS coronavirus 2 RNA [facility] This lab was ordered by [facility] and reported by [facility]. Procedure Social History No Information Vital Signs ID Date Data Source UNK Name Value Range Interpretation Code Description Data Source(s) Body surface area Derived from formula 2.02 m2 2.02 m2 [facility] ([facility]) Systolic blood pressure 130 mm[Hg] 130 mm[Hg] [facility] Body temperature 98.2 [degF] 98.2 [degF] [facility] ([facility]) Diastolic blood pressure 68 mm[Hg] 68 mm[Hg] [facility] ([facility]) Body height 62 [in_i] 62 [in_i] [facility] ([facility]) 5'2" Body weight 226.38 [lb_av] 226.38 [lb_av] [facility] ([facility]) Body mass index (BMI) [Ratio] 41.4 kg/m2 41.4 k g/m2 [facility] ([facility]) [place] body weight 110 [lb_av] 110 [lb_av] [facility] T ([facility], ) Body weight 102.684 kg 102.684 kg [facility] ([facility], ) Diastolic blood pressure 80 mm[Hg] 80 mm[Hg] CHRISTOPH ([facility]) Body weight 3648 [oz_av] 3648 [oz_av] CHRISTOPH ([facility]) Body height 62 [in_i] 62 [in_i] CHRISTOPH ([facility]) Body mass index (BMI) [Ratio] 41.7 kg/m2 41.7 k g/m2 CHRISTOPH ([facility]) Systolic blood pressure 134 mm[Hg] 134 mm[Hg] A THENA ([facility]) [place] body weight 110 [lb_av] 110 [lb_av] MED[facility] T ([facility], ) Body weight 103.081 kg 103.081 kg [facility] ([facility]) Body surface area Derived from formula 2.02 m2 2.02 m2 [facility] ([facility]) Body mass index (BMI) [Ratio] 41.6 kg/m2 41.6 k g/m2 [facility] ([facility]) Systolic blood pressure 139 mm[Hg] 139 mm[Hg] M EDENT ([facility]) Diastolic blood pressure 89 mm[Hg] 89 mm[Hg] [facility] ([facility]) Heart rate 75 /min 75 /min [facility] ([facility]) Body temperature 98.4 [degF] 98.4 [degF] [facility] ([facility]) Body height 62 [in_i] 62 [in_i] [facility] ([facility]) 5'2" Body weight 227.25 [lb_av] 227.25 [lb_av] [facility] T ([facility]) Body height 62 [in_i] 62 [in_i] [facility] ([facility]) Body height 62 [in_i] 62 [in_i] CHRISTOPH ([facility]) Diastolic blood pressure 86 mm[Hg] 86 mm[Hg] [facility]STOPH ([facility]) Body mass index (BMI) [Ratio] 41 kg/m2 41 kg/ m2 [facility]H ([facility]) Systolic blood pressure 121 mm[Hg] 121 mm[Hg] A [facility] ([facility]) Body height 62 [in_i] 62 [in_i] [facility] ([facility]) Body weight 3586 [oz_av] 3586 [oz_av] [facility] ([facility]) Systolic blood pressure 121 mm[Hg] 121 mm[Hg] A [facility] ([facility]) Diastolic blood pressure 86 mm[Hg] 86 mm[Hg] [facility] ([facility]) Body height 62 [in_i] 62 [in_i] [facility] ([facility]) Body mass index (BMI) [Ratio] 41 kg/m2 41 kg/ m2 [facility] ([facility]) Body weight 3586 [oz_av] 3586 [oz_av] [facility] ([facility]) Diastolic blood pressure 86 mm[Hg] 86 mm[Hg] [facility] ([facility]) Body height 62 [in_i] 62 [in_i] [facility] ([facility]) Body mass index (BMI) [Ratio] 41 kg/m2 41 kg/ m2 [facility] ([facility]) Systolic blood pressure 121 mm[Hg] 121 mm[Hg] [facility] Body weight 3586 [oz_av] 3586 [oz_av] [facility] ([facility]) Patient Treatment Plan of Care Planned Activity Planned Date Details Description Data Source (s) nabumetone 500 MG Oral Tablet [facility] ([facility]) Methocarbamol 750 MG Oral Tablet [facility] ([facility]) Fluconazole 150 MG Oral Tablet [facility] ([facility]) Ciprofloxacin 500 MG Oral Tablet [Cipro] [facility] ([facility])
[2021-09-02 08:28] VITALS: BP 127/89
== END 2021-09-02 08:29 | disposition home or self-care (01) ==
LOC: M ED 21:34
DX: R22.42 Localized swelling, mass and lump, left lower limb (principal); Z88.0 Allergy status to penicillin; Z88.8 Allergy status to other drugs, medicaments and biological substances; Z91.018 Allergy to other foods

== ENCOUNTER → 2021-09-03 | Outpatient (REF) | payer MEDICAID | LOC: M LAB REF 16:12 | PROVIDERS: ATTEND Surgery | DX: L91.8 Other hypertrophic disorders of the skin (principal) ==

== ENCOUNTER → 2022-04-21 | Outpatient (REF) | payer MEDICAID ==
[~2022-04-21] MED LIST changes: -DICY20TA11; +DICY20TA20
== END ==
LOC: M LAB REF 16:18
PROVIDERS: ATTEND Physician Assistant
DX: R50.9 Fever, unspecified (principal)

== ENCOUNTER → 2022-11-23 | Outpatient (REF) | payer MEDICAID ==
[2022-11-23 22:14] LABS: APPEARANCE, URINE MANUAL CLEAR (CLEAR); COLOR, URINE MANUAL YELLOW (YELLOW)
[2022-11-23 22:15] LABS: BILIRUBIN, URINE MANUAL NEGATIVE (NEGATIVE); BLOOD URINE MANUAL NEGATIVE (NEGATIVE); GLUCOSE, URINE (UA) MANUAL NEGATIVE (NEGATIVE); KETONE, URINE MANUAL NEGATIVE (NEGATIVE); NITRITE, URINE MANUAL NEGATIVE (NEGATIVE); PROTEIN, URINE MANUAL NEGATIVE (NEGATIVE); UROBILINOGEN, URINE MANUAL NORMAL (NORMAL)
[2022-11-23 22:16] LABS: LEUKOCYTE ESTERASE, URINE MAN TRACE (NEGATIVE)
[2022-11-23 22:25] LABS: RBC, URINE NONE SEEN /hpf (0-3)
[2022-11-23 22:26] LABS: AMORPHOUS SEDIMENT, URINE SMALL AMOUNT (NEGATIVE); BACTERIA, URINE SMALL AMOUNT; MUCUS, URINE SMALL AMOUNT (NEGATIVE); SQUAMOUS EPITHELIAL CELL URINE MOD AMOUNT /hpf (SMALL AMT)
[2022-11-23 23:45] LABS: GC DNA AMPLIFICATION NEGATIVE (NEGATIVE)
[2022-11-24 12:15] LABS: HYALINE CAST, URINE NONE SEEN /lpf (0-1)
== END ==
LOC: M LAB REF 21:43
PROVIDERS: ATTEND Physician Assistant
DX: Z11.3 Encounter for screening for infections with a predominantly sexual mode of transmission (principal)

== ENCOUNTER → 2022-12-30 | Outpatient (REF) | payer MEDICAID ==
[2022-12-30 18:38] LABS: APPEARANCE, URINE HAZY (CLEAR); BILIRUBIN, URINE AUTO NEGATIVE (NEGATIVE); BLOOD, URINE BLOOD NEGATIVE (NEGATIVE); COLOR, URINE YELLOW (YELLOW); GLUCOSE, URINE (UA) AUTO NEGATIVE (NEGATIVE); KETONE, URINE AUTO TRACE mg/dL (NEGATIVE); LEUKOCYTE ESTERASE, URINE AUTO NEGATIVE (NEGATIVE); NITRITE, URINE AUTO NEGATIVE (NEGATIVE); PROTEIN, URINE AUTO NEGATIVE (NEGATIVE); SPECIFIC GRAVITY URINE AUTO 1.026 (1.002-1.035); UROBILINOGEN, URINE AUTO 0.2 mg/dL (0.0-2.0)
[2022-12-30 18:46] LABS: BACTERIA, URINE AUTO NEGATIVE (NEGATIVE); MUCUS, URINE LARGE (NEGATIVE); RBC, URINE AUTO 0 /HPF (0-3); SQUAMOUS EPITHELIAL CELL UR AU 3 /HPF (0-6); WBC, URINE AUTO 3 /HPF (0-3)
[2022-12-30 19:58] LABS: GC DNA AMPLIFICATION NEGATIVE (NEGATIVE)
== END ==
LOC: M LAB REF 16:35
PROVIDERS: ATTEND Physician Assistant
DX: A59.9 Trichomoniasis, unspecified (principal)

== ENCOUNTER → 2022-12-31 | Outpatient (REF) | payer MEDICAID | LOC: M LAB REF 15:53 | PROVIDERS: ATTEND Physician Assistant | DX: N89.8 Other specified noninflammatory disorders of vagina (principal); R10.30 Lower abdominal pain, unspecified ==

== ENCOUNTER → 2023-01-26 | Outpatient (CLI) | payer MEDICAID ==
[2023-01-26 16:01] LABS: BASO # 0.1 10^3/uL (0.0-0.2); BASO % 0.9 % (0.0-1.0); EOS # 0.1 10^3/uL (0.0-0.5); EOS % 1.3 % (0.0-3.0); HEMATOCRIT 37.9 % (36.0-47.0); HEMOGLOBIN 11.9 g/dl (12.0-15.5); LYMPH # 2.3 10^3/uL (1.5-5.0); LYMPH % 27.1 % (24.0-44.0); MEAN CORPUSCULAR HGB CONC 31.4 g/dl (32.0-36.5); MEAN CORPUSCULAR VOLUME 82.9 fl (80.0-96.0); MONO # 0.5 10^3/uL (0.0-0.8); MONO % 6.2 % (2.0-8.0); NEUTROPHILS # 5.5 10^3/uL (1.5-8.5); NEUTROPHILS % 64.4 % (36.0-66.0); PLATELET COUNT, AUTOMATED 301 10^3/uL (150-450); RED BLOOD COUNT 4.57 10^6/uL (4.00-5.40); WHITE BLOOD COUNT 8.6 10^3/uL (4.0-10.0)
[2023-01-26 16:28] LABS: PERCENT SATURATION 7.3 % (13.2-45.0)
[2023-01-26 16:31] LABS: FERRITIN 8.3 NG/ML (7.3-270.7); THYROID STIMULATING HORMONE 0.403 uIU/ML (0.55-4.78)
== END ==
LOC: M LAB 14:45
PROVIDERS: ATTEND Physician Assistant
DX: E61.1 Iron deficiency (principal)

== ENCOUNTER → 2023-03-15 | Outpatient (CLI) | payer MEDICAID ==
[2023-03-15 13:45] LABS: BASO # 0.1 10^3/uL (0.0-0.2); BASO % 1.3 % (0.0-1.0); EOS # 0.1 10^3/uL (0.0-0.5); EOS % 0.7 % (0.0-3.0); HEMATOCRIT 41.9 % (36.0-47.0); HEMOGLOBIN 13.4 g/dl (12.0-15.5); LYMPH # 1.7 10^3/uL (1.5-5.0); LYMPH % 22.1 % (24.0-44.0); MEAN CORPUSCULAR HEMOGLOBIN 26.4 pg (27.0-33.0); MEAN CORPUSCULAR VOLUME 82.6 fl (80.0-96.0); MONO # 0.5 10^3/uL (0.0-0.8); NEUTROPHILS # 5.3 10^3/uL (1.5-8.5); NEUTROPHILS % 68.6 % (36.0-66.0); PLATELET COUNT, AUTOMATED 283 10^3/uL (150-450); RED BLOOD COUNT 5.07 10^6/uL (4.00-5.40); WHITE BLOOD COUNT 7.7 10^3/uL (4.0-10.0)
[2023-03-15 14:10] LABS: THYROID STIMULATING HORMONE 0.279 uIU/ML (0.55-4.78)
[2023-03-15 14:11] LABS: ALBUMIN 3.9 G/DL (3.2-5.2); ALKALINE PHOSPHATASE 60 U/L (46-116); ALT/SGPT 17 U/L (7.0-40); AST/SGOT < 8 U/L (<34); BILIRUBIN,TOTAL 0.6 MG/DL (0.3-1.2); BLOOD UREA NITROGEN 10 MG/DL (9-23); CALCIUM LEVEL 8.9 MG/DL (8.5-10.1); CARBON DIOXIDE LEVEL 27 MMOL/L (20-31); CHLORIDE LEVEL 105 MMOL/L (98-107); CHOLESTEROL LEVEL 136 MG/DL (<200); CHOLESTEROL RISK RATIO 2.78 (<5); CREATININE FOR GFR 0.59 MG/DL (0.55-1.30); FERRITIN 16.7 NG/ML (7.3-270.7); GLOMERULAR FILTRATION RATE > 60.0 (>60); GLUCOSE, FASTING 83 MG/DL (60-100); HDL CHOLESTEROL 48.9 MG/DL (>40); LDL CHOLESTEROL 79.9 MG/DL (<100); NON-HDL-C 87.1 MG/DL; SODIUM LEVEL 140 MMOL/L (136-145); TOTAL IRON BINDING CAPACITY 398 UG/DL (250-425); TOTAL PROTEIN 6.6 G/DL (5.7-8.2); TRIGLYCERIDES LEVEL 36 MG/DL (<150)
[2023-03-15 14:12] LABS: TOTAL 25(OH) VITAMIN D 45.2 NG/ML (20.0-100.0)
[2023-03-15 14:40] LABS: IRON (FE) 48 UG/DL (50-170); PERCENT SATURATION 12.1 % (13.2-45.0)
== END ==
LOC: M WUC 10:06
PROVIDERS: ATTEND Physician Assistant
DX: E66.9 Obesity, unspecified (principal)

== ENCOUNTER → 2023-06-06 | Outpatient (CLI) | payer MEDICAID ==
[2023-06-06 11:03] LABS: APPEARANCE, URINE HAZY (CLEAR); BACTERIA, URINE AUTO NEGATIVE (NEGATIVE); BILIRUBIN, URINE AUTO NEGATIVE (NEGATIVE); BLOOD, URINE BLOOD NEGATIVE (NEGATIVE); COLOR, URINE YELLOW (YELLOW); GLUCOSE, URINE (UA) AUTO NEGATIVE (NEGATIVE); KETONE, URINE AUTO NEGATIVE (NEGATIVE); LEUKOCYTE ESTERASE, URINE AUTO NEGATIVE (NEGATIVE); MUCUS, URINE LARGE (NEGATIVE); NITRITE, URINE AUTO NEGATIVE (NEGATIVE); PROTEIN, URINE AUTO NEGATIVE (NEGATIVE); RBC, URINE AUTO 0 /HPF (0-3); SPECIFIC GRAVITY URINE AUTO 1.025 (1.002-1.035); SQUAMOUS EPITHELIAL CELL UR AU 1 /HPF (0-6); UROBILINOGEN, URINE AUTO 0.2 mg/dL (0.0-2.0); WBC, URINE AUTO 1 /HPF (0-3)
[2023-06-06 11:17] LABS: HEMATOCRIT 41.4 % (36.0-47.0); HEMOGLOBIN 13.2 g/dl (12.0-15.5); MEAN CORPUSCULAR HEMOGLOBIN 26.4 pg (27.0-33.0); MEAN CORPUSCULAR HGB CONC 31.9 g/dl (32.0-36.5); MEAN CORPUSCULAR VOLUME 82.8 fl (80.0-96.0); PLATELET COUNT, AUTOMATED 274 10^3/uL (150-450); WHITE BLOOD COUNT 7.5 10^3/uL (4.0-10.0)
[2023-06-06 11:30] LABS: PERCENT SATURATION 11.3 % (13.2-45.0)
[2023-06-06 11:32] LABS: FERRITIN 9.7 NG/ML (7.3-270.7)
[2023-06-06 11:33] LABS: TOTAL 25(OH) VITAMIN D 26.6 NG/ML (20.0-100.0)
== END ==
LOC: M LAB 10:15
PROVIDERS: ATTEND Physician Assistant
DX: E55.9 Vitamin D deficiency, unspecified (principal); D50.9 Iron deficiency anemia, unspecified; R10.30 Lower abdominal pain, unspecified; N89.8 Other specified noninflammatory disorders of vagina

== ENCOUNTER → 2023-08-04 | Outpatient (REF) | payer MEDICAID ==
[~2023-08-04] MED LIST changes: +DOXY-443 PO; +METR-265 PO
[2023-08-04 17:45] LABS: HEMATOCRIT 41.6 % (36.0-47.0); HEMOGLOBIN 13.3 g/dl (12.0-15.5); MEAN CORPUSCULAR HEMOGLOBIN 26.6 pg (27.0-33.0); MEAN CORPUSCULAR VOLUME 83.2 fl (80.0-96.0); PLATELET COUNT, AUTOMATED 279 10^3/uL (150-450); WHITE BLOOD COUNT 8.1 10^3/uL (4.0-10.0)
[2023-08-04 18:24] LABS: FERRITIN 20.7 NG/ML (7.3-270.7)
[2023-08-04 18:26] LABS: PERCENT SATURATION 6.3 % (13.2-45.0); TOTAL 25(OH) VITAMIN D 28.1 NG/ML (20.0-100.0)
== END ==
LOC: M LAB REF 16:22
PROVIDERS: ATTEND Physician Assistant
DX: D50.9 Iron deficiency anemia, unspecified (principal); E55.9 Vitamin D deficiency, unspecified

== ENCOUNTER 2023-08-19 11:59 | Emergency (ER) | payer OTHER, MEDICAID ==
[~2023-08-19] VITALS: Ht 157.5 cm; Wt 95.8 kg
[2023-08-19 12:00] VITALS: BP 146/82; TEMP 98; O2SAT 98
[2023-08-19] MEDS ORDERED: LIDO5DIS41 TD (13:20)
[2023-08-19] MEDS ORDERED: KETOROLAC 60MG 2ML VIAL IM ONE (13:20)
[2023-08-19] MEDS ORDERED: NAPR-837 PO (13:20)
[2023-08-19] MEDS ORDERED: CYCL-707 PO (13:20)
== END 2023-08-19 13:49 | disposition home or self-care (01) ==
LOC: M ED 11:59
DX: S93.401A Sprain of unspecified ligament of right ankle, initial encounter (principal); S39.012A Strain of muscle, fascia and tendon of lower back, initial encounter; S76.011A Strain of muscle, fascia and tendon of right hip, initial encounter; W01.0XXA Fall on same level from slipping, tripping and stumbling without subsequent striking against object, initial encounter; K21.9 Gastro-esophageal reflux disease without esophagitis; Z88.0 Allergy status to penicillin; Z88.1 Allergy status to other antibiotic agents; Z88.8 Allergy status to other drugs, medicaments and biological substances; Z91.018 Allergy to other foods; Z79.899 Other long term (current) drug therapy; Z79.1 Long term (current) use of non-steroidal anti-inflammatories (NSAID)
CPT/HCPCS: 72110; 73502; 73610; 96372; 99282; J1885

== ENCOUNTER 2023-11-20 08:36 | Emergency (ER) | payer MEDICAID, OTHER, SELFPAY ==
[~2023-11-20] VITALS: Ht 157.5 cm; Wt 94.8 kg
[~2023-11-20 08:36] MED LIST changes: +CYCL-707 PO; +LIDO5DIS41 TD; +NAPR-837 PO
[2023-11-20] MEDS ORDERED: FERR325T81 PO (08:50)
[2023-11-20 10:03] VITALS: BP 165/82; TEMP 97.8; O2SAT 99
== END 2023-11-20 10:08 | disposition home or self-care (01) ==
LOC: M ED 08:36
DX: S61.301A Unspecified open wound of left index finger with damage to nail, initial encounter (principal); W23.1XXA Caught, crushed, jammed, or pinched between stationary objects, initial encounter; Y92.9 Unspecified place or not applicable; Y93.9 Activity, unspecified; Y99.0 Civilian activity done for income or pay; Z91.018 Allergy to other foods; Z88.0 Allergy status to penicillin; Z88.8 Allergy status to other drugs, medicaments and biological substances

== ENCOUNTER → 2023-11-24 | Outpatient (CLI) | payer MEDICAID ==
[~2023-11-24] MED LIST changes: +FERR325T81 PO
[2023-11-24 13:05] LABS: BASO # 0.1 10^3/uL (0.0-0.2); BASO % 1.4 % (0.0-1.0); EOS # 0.1 10^3/uL (0.0-0.5); EOS % 1.9 % (0.0-3.0); HEMATOCRIT 42.2 % (36.0-47.0); HEMOGLOBIN 13.3 g/dl (12.0-15.5); LYMPH % 27.2 % (24.0-44.0); MEAN CORPUSCULAR HEMOGLOBIN 26.5 pg (27.0-33.0); MEAN CORPUSCULAR HGB CONC 31.5 g/dl (32.0-36.5); MEAN CORPUSCULAR VOLUME 84.2 fl (80.0-96.0); MONO # 0.6 10^3/uL (0.0-0.8); NEUTROPHILS # 4.4 10^3/uL (1.5-8.5); NEUTROPHILS % 61.2 % (36.0-66.0); PLATELET COUNT, AUTOMATED 278 10^3/uL (150-450); RED BLOOD COUNT 5.01 10^6/uL (4.00-5.40); WHITE BLOOD COUNT 7.2 10^3/uL (4.0-10.0)
[2023-11-24 13:32] LABS: PERCENT SATURATION 15.6 % (13.2-45.0)
[2023-11-24 13:34] LABS: FERRITIN 16.5 NG/ML (7.3-270.7)
== END ==
LOC: M WUC 09:40
PROVIDERS: ATTEND Nurse Practitioner Family
DX: D50.9 Iron deficiency anemia, unspecified (principal)

== ENCOUNTER → 2023-12-15 | Outpatient (CLI) | payer MEDICAID, OTHER | LOC: M RAD 08:30 | PROVIDERS: ATTEND Physician Assistant | DX: E04.1 Nontoxic single thyroid nodule (principal) ==

== ENCOUNTER 2024-04-18 13:12 | Emergency (ER) | payer OTHER ==
[~2024-04-18] VITALS: Ht 157.5 cm; Wt 94.4 kg
[2024-04-18 13:12] VITALS: BP 156/91; TEMP 99.1; O2SAT 100
[~2024-04-18 13:12] MED LIST changes: +DOXY-323 PO; -DOXY-443 PO
[2024-04-18] MEDS ORDERED: HYDR25OIN TOP (16:19)
== END 2024-04-18 16:32 | disposition home or self-care (01) ==
LOC: M ED 13:12
DX: L25.9 Unspecified contact dermatitis, unspecified cause (principal); Z88.0 Allergy status to penicillin; Z88.1 Allergy status to other antibiotic agents; Z88.8 Allergy status to other drugs, medicaments and biological substances; Z91.018 Allergy to other foods; Z79.899 Other long term (current) drug therapy

== ENCOUNTER → 2024-06-18 | Outpatient (CLI) | payer OTHER ==
[~2024-06-18] MED LIST changes: +HYDR25OIN TOP
[2024-06-18 18:30] LABS: HEMATOCRIT 39.6 % (36.0-47.0); HEMOGLOBIN 12.6 g/dl (12.0-15.5); MEAN CORPUSCULAR HEMOGLOBIN 27.1 pg (27.0-33.0); MEAN CORPUSCULAR HGB CONC 31.8 g/dl (32.0-36.5); MEAN CORPUSCULAR VOLUME 85.2 fl (80.0-96.0); PLATELET COUNT, AUTOMATED 269 10^3/uL (150-450); RED BLOOD COUNT 4.65 10^6/uL (4.00-5.40); WHITE BLOOD COUNT 9.2 10^3/uL (4.0-10.0)
[2024-06-18 18:57] LABS: PERCENT SATURATION 7.1 % (13.2-45.0)
[2024-06-18 19:01] LABS: FERRITIN 8.3 NG/ML (7.3-270.7)
== END ==
LOC: M WUC 14:09
PROVIDERS: ATTEND Physician Assistant
DX: D50.9 Iron deficiency anemia, unspecified (principal)

== ENCOUNTER → 2024-07-11 | Outpatient (REF) | payer MEDICAID ==
[2024-07-11 17:35] LABS: THYROID STIMULATING HORMONE 0.425 uIU/ML (0.55-4.78)
[2024-07-11 17:36] LABS: FREE T4 1.19 NG/DL (0.89-1.76)
== END ==
LOC: M LABWUC 16:17
PROVIDERS: ATTEND Physician Assistant
DX: E04.1 Nontoxic single thyroid nodule (principal)

== ENCOUNTER → 2024-11-27 | Outpatient (REF) | payer OTHER ==
[~2024-11-27] MED LIST changes: -DOXY-323 PO; +DOXY-441 PO
[2024-11-27 14:52] LABS: Trichomonas vaginalis (AMP) NOT DETECTED (NEGATIVE)
[2024-11-27 15:15] LABS: GC DNA AMPLIFICATION NEGATIVE (NEGATIVE)
== END ==
LOC: M LAB REF 13:28
PROVIDERS: ATTEND Physician Assistant Medical
DX: Z20.2 Contact with and (suspected) exposure to infections with a predominantly sexual mode of transmission (principal)

== ENCOUNTER → 2025-02-16 | Outpatient (REF) | payer OTHER ==
[2025-02-16 19:24] LABS: APPEARANCE, URINE HAZY (CLEAR); BACTERIA, URINE AUTO NEGATIVE (NEGATIVE); BILIRUBIN, URINE AUTO NEGATIVE (NEGATIVE); BLOOD, URINE BLOOD NEGATIVE (NEGATIVE); CALCIUM OXALATE CRYSTALS SMALL; COLOR, URINE YELLOW (YELLOW); GLUCOSE, URINE (UA) AUTO NEGATIVE (NEGATIVE); KETONE, URINE AUTO NEGATIVE (NEGATIVE); LEUKOCYTE ESTERASE, URINE AUTO NEGATIVE (NEGATIVE); MUCUS, URINE MODERATE (NEGATIVE); NITRITE, URINE AUTO NEGATIVE (NEGATIVE); PROTEIN, URINE AUTO 1+ mg/dL (NEGATIVE); RBC, URINE AUTO 1 /HPF (0-3); SQUAMOUS EPITHELIAL CELL UR AU 5 /HPF (0-6); UROBILINOGEN, URINE AUTO 0.2 mg/dL (0.0-2.0); WBC, URINE AUTO 1 /HPF (0-3)
[2025-02-16 20:26] LABS: Trichomonas vaginalis (AMP) NOT DETECTED (NEGATIVE)
[2025-02-16 20:50] LABS: GC DNA AMPLIFICATION NEGATIVE (NEGATIVE)
== END ==
LOC: M LAB REF 18:53
PROVIDERS: ATTEND Physician Assistant
DX: N39.0 Urinary tract infection, site not specified (principal)

== ENCOUNTER → 2025-04-03 | Outpatient (REF) | payer OTHER ==
[~2025-04-03] MED LIST changes: +LIDO1ADH93 TD; -LIDO5DIS41 TD
[2025-04-03 19:24] LABS: GC DNA AMPLIFICATION NEGATIVE (NEGATIVE)
[2025-04-04 16:16] LABS: Trichomonas vaginalis (AMP) NOT DETECTED (NEGATIVE)
== END ==
LOC: M LAB REF 16:57
PROVIDERS: ATTEND Physician Assistant
DX: N39.0 Urinary tract infection, site not specified (principal)

== ENCOUNTER → 2025-06-13 | Outpatient (REF) | payer OTHER ==
[2025-06-13 18:17] LABS: PLATELET COUNT, AUTOMATED 282 10^3/uL (150-450)
[2025-06-13 18:23] LABS: IRON (FE) 27 UG/DL (50-170); PERCENT SATURATION 6.7 % (13.2-45.0)
[2025-06-13 18:24] LABS: ALT/SGPT 15 U/L (7.0-40); AST/SGOT 14 U/L (<34); CALCIUM LEVEL 8.8 MG/DL (8.5-10.1); CARBON DIOXIDE LEVEL 25 MMOL/L (20-31); CHLORIDE LEVEL 107 MMOL/L (98-107); CHOLESTEROL LEVEL 146 MG/DL (<200); CHOLESTEROL RISK RATIO 3.04 (<5); CREATININE FOR GFR 0.56 MG/DL (0.55-1.30); GLOMERULAR FILTRATION RATE > 90.0 (>60); LDL CHOLESTEROL 78.2 MG/DL (<100); NON-HDL-C 98.0 MG/DL; POTASSIUM SERUM 3.8 MMOL/L (3.5-5.1); SODIUM LEVEL 145 MMOL/L (136-145); TRIGLYCERIDES LEVEL 99 MG/DL (<150)
[2025-06-13 18:25] LABS: TOTAL 25(OH) VITAMIN D 27.6 NG/ML (20.0-100.0)
== END ==
LOC: M LAB REF 17:40
PROVIDERS: ATTEND Physician Assistant
DX: D50.9 Iron deficiency anemia, unspecified (principal); E66.9 Obesity, unspecified; Z68.38 Body mass index [BMI] 38.0-38.9, adult; Z13.220 Encounter for screening for lipoid disorders; Z13.1 Encounter for screening for diabetes mellitus; E55.9 Vitamin D deficiency, unspecified

== ENCOUNTER → 2025-07-01 | Outpatient (REF) | payer OTHER ==
[2025-07-01 19:23] LABS: HEPATITIS C VIRUS ABY INDEX < 0.02 INDEX (<0.8); HIV 1&2 SCREEN NEGATIVE (NEGATIVE)
[2025-07-01 19:56] LABS: Trichomonas vaginalis (AMP) NOT DETECTED (NEGATIVE)
[2025-07-01 20:20] LABS: GC DNA AMPLIFICATION NEGATIVE (NEGATIVE)
== END ==
LOC: M LAB REF 17:15
PROVIDERS: ATTEND Student in an Organized Health Care Education/Training Program
DX: Z11.3 Encounter for screening for infections with a predominantly sexual mode of transmission (principal)

== ENCOUNTER → 2025-07-02 | Outpatient (REF) | payer OTHER ==
[2025-07-02 20:18] LABS: GC DNA AMPLIFICATION NEGATIVE (NEGATIVE)
[2025-07-02 20:22] LABS: Trichomonas vaginalis (AMP) NOT DETECTED (NEGATIVE)
== END ==
LOC: M LAB REF 17:22
PROVIDERS: ATTEND Student in an Organized Health Care Education/Training Program
DX: Z11.3 Encounter for screening for infections with a predominantly sexual mode of transmission (principal)

== ENCOUNTER → 2025-08-13 | Outpatient (CLI) | payer OTHER | LOC: M WHC 14:05 | PROVIDERS: ATTEND Student in an Organized Health Care Education/Training Program | DX: E04.1 Nontoxic single thyroid nodule (principal) ==